=== PATIENT | male | born 1955 | race Caucasian/White ===

== ENCOUNTER 2024-06-05 16:35 | Inpatient (IN) | payer MEDICARE, OTHER, SELFPAY ==
[2024-06-05] VITALS (24 sets, daily range): BP systolic 111–176; BP diastolic 68–110; PULSE 75–105; RESP 16–26; TEMP 36.1–37; O2SAT 94–100; BMI 30.3; BMI 27.1
--- NOTE | 2024-06-05 16:36 | EKG12_ITS ---
Test Reason : STROKE ALERT Blood Pressure : / mmHG Vent. Rate : 092 BPM Atrial Rate : 092 BPM P-R Int : 140 ms QRS Dur : 064 ms QT Int : 344 ms P-R-T Axes : 065 032 069 degrees QTc Int : 425 ms Sinus rhythm with frequent Premature ventricular complexes Nonspecific ST abnormality Abnormal ECG Confirmed by Alfredito Lopez ([id number]), script editor JIMMIE GARCIA ([id number]) on 06/07/2024 10:21:07 AM Referred By: Confirmed By:Alfredito Lopez
--- NOTE | 2024-06-05 16:36 | CT_ITS ---
EXAMINATION : Head CT w/out contrast HISTORY : Neuro deficit, acute, stroke suspected COMPARISON : None. TECHNIQUE : Multiple contiguous axial images were obtained from the skull base to the vertex without intravenous contrast. A radiation dose optimization technique was used for this scan. FINDINGS : There is no evidence for acute intracranial hemorrhage, mass effect, or midline shift. There is no extra-axial fluid collection. There are periventricular white matter changes consistent with chronic microvascular ischemic disease. There is sulcal widening and ventricular enlargement consistent with cerebral atrophy. There is normal márquez-white differentiation, without CT evidence of acute ischemia or infarct. The skull base and calvarium are unremarkable. The orbits are unremarkable. The paranasal sinuses are clear. The mastoid air cells are well-aerated. The soft tissues are unremarkable. CT/STROKE Brain/Head without Cont IMPRESSION: No acute intracranial abnormality. Chronic involutional and ischemic changes of the brain. N.B. : The above Results were Read Back by Jonathon Yanez MD to Donald Resendiz MD, and understanding confirmed on 06/05/2024 16:48:18 (ET). Electronically Signed: Jonathon Yanez MD at 16:48 EDT ,
--- NOTE | 2024-06-05 16:36 | NURSING ---
NO OLD EKGS
--- NOTE | 2024-06-05 16:37 | CT_ITS ---
INDICATION: Neuro deficit, acute, stroke suspected EXAMINATION: CTA HEAD - CTA Head and Neck Stroke W/ Contrast (and W/O if performed) TECHNIQUE: [place]/head CT angiogram protocol was performed following IV contrast. 3D reconstructions were reviewed. A radiation dose optimization technique was used for this scan. IV Contrast dosage and agent: 100 mL [id number] COMPARISON: None. FINDINGS: Limitation: Limitation current examination due to motion artifact which obscures detail anatomy of the intracranial circulation. CTA [place]: PETROUS AND CAVERNOUS CAROTID ARTERIES: Moderate calcifications in the cavernous carotid vessels bilaterally without christian occlusion although limited due to motion artifact. No aneurysmal dilatation. SUPRACLINOID CAROTID ARTERIES: Normal appearance the supraclinoid carotid vessels bilaterally, the visualized ophthalmic arteries have normal appearance. ANTERIOR CEREBRAL AND A- COMM: Normal appearance the proximal and distal segments of the anterior cerebral circulation bilaterally. MIDDLE CEREBRAL ARTERIES: Normal appearance the M1 segments of the MCA bilaterally. Moderately diminished visualization of detail anatomy of M2-M4 segments bilaterally due to motion artifact. No christian occlusion however noted. INTRACRANIAL VERTEBRAL ARTERIES AND BASILAR ARTERY: Moderate calcifications involving the V4 segment LEFT vertebral artery. Basilar artery has normal caliber to level of the bifurcation. No filling defect or occlusion. POSTERIOR CEREBRAL ARTERIES: Normal appearance proximal distal segments of posterior cerebral circulation bilaterally. DURAL SINUSES: Normal, no filling defects noted CT HEAD: Noncontrast imaging of brain also submitted and correlated to exam of earlier same date. The cerebral parenchyma, ventricular system and gyral pattern have unchanged appearance. No mass, hemorrhage, or acute territorial infarct. No areas of abnormal contrast enhancement. CTA Neck: TECHNIQUE: CTA examination of the neck obtained with standard protocol including axial postcontrast imaging with additional planar and three-dimensional reconstructions. Aortic arch: [Normal appearance of the aortic arch and origin the great vessels.] Right carotid system: There is extensive soft and calcified plaque at the RIGHT carotid bulb with findings consistent with a severe (greater than 70%) stenosis. The remaining RIGHT CCA, cervical ICA, and ECA have normal appearance. Left carotid system: There is extensive calcification LEFT carotid bulb and bifurcation with findings consistent with a moderate (50-69%) stenosis at, and closer to 69%. Vertebral arteries: There is normal appearance of the vertebral arteries bilaterally without focal stenosis or occlusion. Airway and soft tissues of the neck: There is normal appearance of the musculofascial planes of suprahyoid and infrahyoid neck. Normal appearance of the visualized airway. Normal appearance the visualized thyroid without masses or nodules noted. Cervical spine: Diffuse cervical spondylosis, marginal osteophytes noted. No evidence of acutely acquired canal stenosis. No focal stenosis or occlusion involving the cervical spinal canal. CT/STROKE CTA Head AND Neck W/Con IMPRESSION: 1. Mild to moderate limitation of the intracranial circulation due to motion artifact. Moderate calcification involving the cavernous carotid vessels bilaterally no christian occlusion however motion does limit evaluation/quantification of stenoses of the cavernous carotid vessels. 2. Limited visualization of mid to distal branches of middle cerebral arteries bilaterally due to technical factors. No proximal MCA occlusion or filling defect. 3. No CTA evidence of LVO given the limitations the current exam. 4. Bilateral cervical carotid/carotid bulb stenosis. Severe stenosis on the RIGHT, greater than 70%. Stenosis on the LEFT estimated at moderate (50-69%), and closer to 69%. 5. No evidence of stenosis or occlusion of the cervical course of the vertebral arteries. N.B. : The above Results were Read Back by Jeronimo Howell MD to Donald Resendiz MD, and understanding confirmed on 06/05/2024 17:52:48 (ET). Electronically Signed: Jeronimo Howell MD at 17:54 EDT ,
--- NOTE | 2024-06-05 16:37 | ED.VIS.STROK ---
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 His blood pressure was low a week ago when he stopped taking his lisinopril as a result. He takes no antiplatelet or anticoagulant medications. Denies any recent head injury, hospitalization, surgery. Per EMS blood sugar 177 prior to arrival, weak left upper extremity, left facial droop, and slurred speech. [facility] Medical History (Updated 06/05/24 @ 17:[address] Donald Resendiz MD) Bone tumor Hypercholesteremia HTN (hypertension) Home Medications ?Medication ?Instructions ?Recorded ?Last Taken ?Type lisinopril 10 mg tablet 10 mg PO DAILY 06/05/24 Unknown History Allergy/AdvReac Type Severity Reaction Status Date / Time No Known Allergies Allergy Verified 06/05/24 16:44 Family History (Updated 06/05/24 @ 18:[address] Sha Brown MD) Other Diabetes Heart disease Surgical History (Updated 06/05/24 @ 18:[address] Sha Brown MD) History of bone graft Social History Smoking Status: Current every day smoker tobacco type: cigarettes ROS ROS ED Constitutional Constitutional ED: Denies chills or fever(s) Eyes Eyes: Denies change in vision or diplopia ENT ENT ED: Denies rhinorrhea or sore throat Cardiovascular Cardiovascular: Denies chest pain or palpitations Respiratory/Chest Respiratory/Chest: Denies cough or dyspnea Gastrointestinal Gastrointestinal: Denies abdominal pain, diarrhea, nausea or vomiting Genitourinary Genitourinary ED: Denies dysuria or hematuria Musculoskeletal Musculoskeletal: Denies back pain or neck pain Integumentary Denies abscess or rash Neurologic Neurologic: Reports abnormal speech, headache(s) and weakness; Denies paresthesias Psychiatric Psychiatric: Denies suicidal thoughts EXAM Physical Exam Const Vital Signs: 06/05/24 16:36 06/05/24 16:38 06/05/24 16:43 Temperature 97.6 F L Temperature Source Temporal Pulse Rate 104 H Respiratory Rate 16 Blood Pressure 144/80 H Blood Pressure Mean 101 Blood Pressure Source Blood Pressure Position Blood Pressure Location Pulse Ox 95 Oxygen Delivery Method Room Air Nasal Cannula Oxygen Flow Rate (L/min) 2 06/05/24 16:56 06/05/24 17:00 06/05/24 17:15 Temperature 97.4 F L Temperature Source Oral Pulse Rate 102 H 105 H Respiratory Rate 20 H 20 H Blood Pressure 176/101 H 176/101 H 152/76 H Blood Pressure Mean 126 101 Blood Pressure Source Monitor Monitor Blood Pressure Position Supine Semi-Fowlers Blood Pressure Location Left Arm Pulse Ox 100 97 Oxygen Delivery Method Room Air Room Air Oxygen Flow Rate (L/min) 06/05/24 17:24 06/05/24 17:30 06/05/24 17:45 Temperature 97.9 F 97.7 F L 97.4 F L Temperature Source Oral Oral Pulse Rate 96 94 94 Respiratory Rate 18 25 H 25 H Blood Pressure 152/76 H 157/89 H 157/88 H Blood Pressure Mean 101 111 111 Blood Pressure Source Monitor Monitor Blood Pressure Position Semi-Fowlers Semi-Fowlers Blood Pressure Location Left Arm Left Arm Pulse Ox 96 97 96 Oxygen Delivery Method Room Air Room Air Oxygen Flow Rate (L/min) Positive well nourished and well developed General Appearance ED: well developed and NAD HEENT Reports moist mucous membranes normocephalic and atraumatic Eyes PERRL and EOMs intact bilaterally Neck full ROM and supple Neck Narrative: No carotid bruits Resp normal respiratory effort and clear to auscultation bilaterally Cardio regular rate, regular rhythm and no murmurs GI non-tender and non-distended Auscultation: normoactive bowel sounds Palpation: soft Back/Spine no CVA tenderness General Back: other FROM Extremity normal to inspection General Extremety ED: Negative for edema, pulses abnormal or tenderness General Extremity: Negative for edema or pulses abnormal Neuro Sensorium / Orientation: awake and alert Skin no rashes or lesions noted and no wounds NIHSS NIHSS Initial: 1a Level of Consciousness: 1 1b LOC Questions (Score 2 if aphasic/stupor): 0 1c LOC Commands (Only score 1st attempt): 0 2 Best Gaze (If aphasic, use reflexive mvmts.): 0 3 Visual: 0 4 Facial Palsy: 2 5 Motor Arm Right (UN = amputation/fusion): 0 5 Motor Arm Left: 1 6 Motor Leg Right: 0 6 Motor Leg Left: 0 7 Limb ataxia (Only + if out of proportion): 0 8 Sensory (Aphasia/stupor=0 or 1, coma=2): 1 9 Best Language: 1 10 Dysarthria (mute, coma=2, intubated=UN): 2 11 Extinction and Inattention (only scored if +): 0 Total Score: 8 MDM MDM MDM Narrative Medical decision making narrative: I saw patient in the EMS bay for initial evaluation, he is a little somnolent, speech is very slurred, he has a dense left facial droop and his left arm is weak and with decreased sensation. See the attached NIHSS. He was taken by EMS immediately to CT, I reviewed the images in real-time I see no acute hemorrhage and radiology contacted me confirming same. I agree with the report. I reevaluated the patient performed a thorough NIHSS at that time, he still has the symptoms and confirms that they just started recently. Family arrived, and confirmed the same. He had a minor fall yesterday bumping his elbow and shoulder with no head injury, no recent hospitalization or surgery, he takes no antiplatelet or anticoagulant medications since he stopped his lisinopril 1 week ago he is taking no medications, and he was fine today before all of this. 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 TNK indicated, which I ordered and gave. [facility] was delayed in being in because they had 3 simultaneous strokes including those from other spokes/hospitals, when they came in to evaluate the patient after we gave TNK, they confirmed that it was indicated. We discussed risks and alternatives and my recommendation for giving it, patient and friends and family all in agreement. Discussed with hospitalist for admission after we confirmed with radiology that although the CT angiography is a poor study he sees no LVO in M1 or M2 segment although there is significant stenosis in the bulb of the right carotid which may be related to either low flow or throwing a small thrombus and causing this syndrome. History & Record Review Additional record(s) reviewed:: No prior records Lab Data Attestation: I reviewed the patient's lab results. Labs: Laboratory Results - last 24 hr 06/05/24 06/05/24 16:37 17:30 WBC 9.1 RBC 4.92 Hgb 17.4 H Hct 48.8 MCV 99.2 H MCH 35.4 H MCHC 35.7 RDW Std Deviation 45.9 H RDW Coeff of [place] 12.6 Plt Count 251 MPV 9.5 Immature Gran % (Auto) 0.400 Neut % (Auto) 74.3 H Lymph % (Auto) 17.4 L [place] % (Auto) 6.2 Eos % (Auto) 0.9 Baso % (Auto) 0.8 Absolute Neuts (auto) 6.8 Absolute Lymphs (auto) 1.58 Nucleated RBC % 0 PT 13.1 INR 1.0 APTT 28.6 Sodium 137 Potassium 3.5 Chloride 103 Carbon Dioxide 25.0 Anion Gap 9 BUN 15 Creatinine 1.02 Estim Creat Clear Calc 82.83 Est GFR (MDRD) Af Amer 94 Est GFR (MDRD) Non-Af 78 BUN/Creatinine Ratio 14.7 Glucose 206 H Calcium 9.5 Troponin I High Sens 4 Triglycerides 212 H Cholesterol 256 H LDL Cholesterol 166 H VLDL Cholesterol 42 H HDL Cholesterol 48 Radiography Diagnostic Testing: Clinical Impression(s) from Imaging Studies Brain CT 06/05/24 16:36 IMPRESSION: No acute intracranial abnormality. Chronic involutional and ischemic changes of the brain. N.B. : The above Results were Read Back by Jonathon Yanez MD to Donald Resendiz MD, and understanding confirmed on 06/05/2024 16:48:18 (ET). Electronically Signed: Jonathon Yanez MD at 16:48 EDT , Head/Neck CTA 06/05/24 16:37 IMPRESSION: 1. Mild to moderate limitation of the intracranial circulation due to motion artifact. Moderate calcification involving the cavernous carotid vessels bilaterally no christian occlusion however motion does limit evaluation/quantification of stenoses of the cavernous carotid vessels. 2. Limited visualization of mid to distal branches of middle cerebral arteries bilaterally due to technical factors. No proximal MCA occlusion or filling defect. 3. No CTA evidence of LVO given the limitations the current exam. 4. Bilateral cervical carotid/carotid bulb stenosis. Severe stenosis on the RIGHT, greater than 70%. Stenosis on the LEFT estimated at moderate (50-69%), and closer to 69%. 5. No evidence of stenosis or occlusion of the cervical course of the vertebral arteries. N.B. : The above Results were Read Back by Jeronimo Howell MD to Donald Resendiz MD, and understanding confirmed on 06/05/2024 17:52:48 (ET). Electronically Signed: Jeronimo Howell MD at 17:54 EDT , ADDENDUM: 06/05/24 1801 IMPRESSION: 1. Mild to moderate limitation of the intracranial circulation due to motion artifact. Moderate calcification involving the cavernous carotid vessels bilaterally no christian occlusion however motion does limit evaluation/quantification of stenoses of the cavernous carotid vessels. 2. Limited visualization of mid to distal branches of middle cerebral arteries bilaterally due to technical factors. No proximal MCA occlusion or filling defect. 3. No CTA evidence of LVO given the limitations the current exam. 4. Bilateral cervical carotid/carotid bulb stenosis. Severe stenosis on the RIGHT, greater than 70%. Stenosis on the LEFT estimated at moderate (50-69%), and closer to 69%. 5. No evidence of stenosis or occlusion of the cervical course of the vertebral arteries. N.B. : The above Results were Read Back by Jeronimo Howell MD to Donald Resendiz MD, and understanding confirmed on 06/05/2024 17:52:48 (ET). Electronically Signed: Jeronimo Howell MD at 17:54 EDT , Chest X-Ray 06/05/24 17:28 IMPRESSION: No radiographic evidence of acute cardiopulmonary disease. Electronically Signed: Mary Pappas MD at 18:09 EDT Reading Location ID and State: [id number] / Tel , Service support , 1 view chest x-ray my interpretation shows some atelectasis in the bases but no acute abnormalities. I reviewed the CTA imaging and results which I agree with. Rhythm Strip Rhythm Strip: Sinus Rhythm Rate: 92 Ectopy: PVC(s) EKG Initial EKG: Attestation: I personally reviewed and interpreted this EKG as follows: Interpretation: Sinus Rhythm and No Acute Injury Pattern Comments: pvcs Management Discussion w/another healthcare provider: Hospitalist, [employer] ([facility] stroke neuro), Radiologist and Pharmacist Stroke Documentation Questions Stroke Team Activated: Yes Reviewed Inclusion/Exclusion criteria: Yes Was Patient considered for Endovascular Intervention?: No-CTA negative, determined not to be an endovascular candidate IV Thrombolytic Administered: Yes Critical Care Time Critical Care Time: Yes Critical care time (excluding procedures): 30-74 minutes (36 min), Including time spent:, Discussing w/Patient &/or Family/Fare Register Repairer, Discussing w/Consultants, Arranging Admission or Transfer and Performing Direct Patient Care at Bedside Discharge Plan Dx/Rx/DC Orders Clinical Impression: Acute ischemic right MCA stroke Disposition Disposition: [facility] Discharge Date/Time: 06/05/24 19:01
--- NOTE | 2024-06-05 16:38 | NURSING ---
1610 STROKE CALLED PRIOR TO ARRIVAL, ETA 20 MIN
[2024-06-05 16:46] LABS: Absolute Lymphocyte Count 1.58 X10^3/uL (0.83-4.51); Absolute Neutrophil Count 6.8 X10^3/uL (2.0-7.7); Basophil# 0.07 X10^3/uL; Basophil% 0.8 % (0-1); Eosinophil# 0.08 X10^3/uL; Eosinophils% 0.9 % (0-5); Hematocrit 48.8 % (40-54); Hemoglobin 17.4 g/dL (13.0-16.5); Lymphocyte # 1.58 X10^3/ul (0.83-4.51); Lymphocyte % 17.4 % (19-41); Mean Corp Hgb Conc 35.7 g/dL (32-36); Mean Corpuscular Hgb 35.4 pg (27.0-32.0); Mean Corpuscular Volume 99.2 fL (80-94); Mean Platelet Vol. 9.5 fl (6.2-12.0); Monocyte# 0.56 X10^3/uL; Monocyte% 6.2 % (0-10); NRBC Flagged by Analyzer 0 % (0-5); Neutrophil # 6.77 X10^3/uL (2.7-7.7); Neutrophil % 74.3 % (47-70); Platelet Count 251 K/mm3 (150-450); RBC Distribution Width CV 12.6 % (11.6-14.6); RBC Distribution Width SD 45.9 fl (35.1-43.9); Red Blood Count 4.92 M/mm3 (4.6-6.2); White Blood Count 9.1 K/mm3 (4.4-11.0)
[2024-06-05 16:54] LABS: Prothrombin Time (Protime)PT. 13.1 SECONDS (11.7-14.9)
--- NOTE | 2024-06-05 16:54 | ED.RN ---
Dr Resendiz stated to give the TNK prior to placing the perla.
[2024-06-05 16:55] LABS: Partial Thromboplast Time 28.6 Seconds (24.1-36.2)
[2024-06-05] MEDS: 0.9% Saline Lock 10 ML Syringe IV ×3 (16:55→21:49)
[2024-06-05] MEDS: TENECTEPLASE 3456 MG IV (16:56)
[2024-06-05 17:04] LABS: Anion Gap 9 (5-15); BUN 15 mg/dL (7-18); BUN/Creat Ratio 14.7 RATIO (10-20); Calcium,Total 9.5 mg/dL (8.5-10.1); Chloride 103 mmol/L (98-107); Creatinine, Serum 1.02 mg/dL (0.70-1.30); EST Glomerular Filtration Rate 78 mL/min (>60); Est Glom Filt Rate - Afr Amer 94 mL/min (>60); Estimated Creatinine Clearance 82.83 ml/min; Glucose 206 mg/dL (74-106); Potassium 3.5 mmol/L (3.5-5.1); Sodium Level 137 mmol/L (136-145); Troponin-I HS 4 pg/mL (3.0-78.0)
[2024-06-05] MEDS: 0.9% Normal Saline (1000mL) 1,000 ML 100 ML IV (17:27)
--- NOTE | 2024-06-05 17:28 | RAD_ITS ---
INDICATION: Neuro deficit, acute, stroke suspected EXAMINATION/TECHNIQUE: X-RAY - XR Chest 1 View COMPARISON: FINDINGS: LINES/DEVICES: None. LUNGS: No consolidation, edema or effusion. No pneumothorax. MEDIASTINUM AND CARDIOVASCULAR STRUCTURES: Cardiac silhouette not enlarged. Central airways and mediastinal contour are unremarkable. BONES AND SOFT TISSUES: Unremarkable. RAD/Chest 1 View IMPRESSION: No radiographic evidence of acute cardiopulmonary disease. Electronically Signed: Mary Pappas MD at 18:09 EDT Reading Location ID and State: [id number] / Tel , Service support ,
--- NOTE | 2024-06-05 17:30 | ED.RN ---
Mild bleeding noted around the urethra. This RN wiped it away and it did not continue to bleed.
--- NOTE | 2024-06-05 18:04 | NURSING ---
ICU ISCHEMIC STROKE HEMANT
--- NOTE | 2024-06-05 18:21 | HP.PCM.HOS_ITS ---
HPI - General General Date of Admission: 06/05/24 HPI Narrative COCO YIN, is a 68 M who presents to the hospital as a stroke. He was in the garage working on a project with his son when he started losing strength in his left hand and arm and did not feel well. They took him into the house and get blood pressure and call the ambulance and during that process they noticed that his speech was slurred and that he was developing a left facial droop. On arrival to the hospital he was evaluated as a stroke team and given TNK. He had NIH of 5 secondary to the dysarthria as well as left upper extremity weakness and some sensory loss. He is a smoker and states that he has a history of high blood pressure and cholesterol but he stopped taking his medications because he felt fine. [facility] Medical History (Updated 06/05/24 @ 17:[address] Donald Resendiz MD) Bone tumor Hypercholesteremia HTN (hypertension) Home Medications ?Medication ?Instructions ?Recorded ?Last Taken ?Type lisinopril 10 mg tablet 10 mg PO DAILY 06/05/24 Unknown History Allergy/AdvReac Type Severity Reaction Status Date / Time No Known Allergies Allergy Verified 06/05/24 16:44 Family History (Updated 06/05/24 @ 18:[address] Sha Brown MD) Other Diabetes Heart disease Surgical History (Updated 06/05/24 @ 18:[address] Sha Brown MD) History of bone graft Social History Smoking Status: Current every day smoker tobacco type: cigarettes ROS Constitutional Constitutional: Denies chills, fatigue, fever(s) or malaise Eyes Eyes: Denies blurry vision ENT HEENT: Denies headache(s) or nasal discharge Cardiovascular Cardiovascular: Denies chest pain, dyspnea on exertion or syncope Respiratory/Chest Respiratory/Chest: Denies cough, shortness of breath at rest or shortness of breath with exertion Gastrointestinal Gastrointestinal: Denies constipation, diarrhea, nausea or vomiting Genitourinary Genitourinary: Denies dysuria Neurologic Neurologic: Reports abnormal speech, focal weakness and paresthesias; Denies numbness or tremor(s) Psychiatric Psychiatric: Denies anxiety or depression Vital Signs Vital Signs Vital Signs: 06/05/24 16:36 06/05/24 16:38 06/05/24 16:43 Temperature 97.6 F L Temperature Source Temporal Pulse Rate 104 H Respiratory Rate 16 Blood Pressure 144/80 H Blood Pressure Mean 101 Blood Pressure Source Blood Pressure Position Blood Pressure Location Pulse Ox 95 Oxygen Delivery Method Room Air Nasal Cannula Oxygen Flow Rate (L/min) 2 06/05/24 16:56 06/05/24 17:00 06/05/24 17:15 Temperature 97.4 F L Temperature Source Oral Pulse Rate 102 H 105 H Respiratory Rate 20 H 20 H Blood Pressure 176/101 H 176/101 H 152/76 H Blood Pressure Mean 126 101 Blood Pressure Source Monitor Monitor Blood Pressure Position Supine Semi-Fowlers Blood Pressure Location Left Arm Pulse Ox 100 97 Oxygen Delivery Method Room Air Room Air Oxygen Flow Rate (L/min) 06/05/24 17:24 06/05/24 17:30 06/05/24 17:45 Temperature 97.9 F 97.7 F L 97.4 F L Temperature Source Oral Oral Pulse Rate 96 94 94 Respiratory Rate 18 25 H 25 H Blood Pressure 152/76 H 157/89 H 157/88 H Blood Pressure Mean 101 111 111 Blood Pressure Source Monitor Monitor Blood Pressure Position Semi-Fowlers Semi-Fowlers Blood Pressure Location Left Arm Left Arm Pulse Ox 96 97 96 Oxygen Delivery Method Room Air Room Air Oxygen Flow Rate (L/min) 06/05/24 18:00 06/05/24 18:15 Temperature 97.7 F L 97.7 F L Temperature Source Oral Oral Pulse Rate 91 97 Respiratory Rate 25 H 25 H Blood Pressure 157/98 H 166/91 H Blood Pressure Mean 117 116 Blood Pressure Source Monitor Monitor Blood Pressure Position Semi-Fowlers Semi-Fowlers Blood Pressure Location Left Arm Left Arm Pulse Ox 97 97 Oxygen Delivery Method Room Air Room Air Oxygen Flow Rate (L/min) Weight Weight: 211 lb 10.3 oz Body Mass Index (BMI) 30.3 Physical Exam Narrative General: Alert, Oriented x3, Cooperative, No apparent distress HEENT: Atraumatic, PERRLA, EOMI, Normocephalic Oral: Moist Mucosa Neck: Supple, No JVD Lungs: Diminished, Normal air movement, No rhonchi, No wheeze, No rales Cardiovascular: Regular rate, Regular Rhythm, Normal S1, Normal S2, No murmurs Abdomen: Soft, Non Tender, Non-Distended, No Hepato-splenomegaly Extremities: No edema, Capillary Refill Less than 3 Seconds Skin: No rashes, No breakdown Musculoskeletal: No Tenderness to Palpation of Joints or Extremities Neurological: Left facial droop with mild dysarthria, right upper extremity is 5 out of 5, left upper extremity is 4 out of 5 Psych/Mental Status: Normal Affect, Appropriate Results Lab / Micro Data 06/05/24 16:37 06/05/24 16:37 Labs: Laboratory Results - last 24 hr 06/05/24 16:37: WBC 9.1, RBC 4.92, Hgb 17.4 H, Hct 48.8, MCV 99.2 H, MCH 35.4 H, MCHC 35.7, RDW Std Deviation 45.9 H, RDW Coeff of Kassidy 12.6, Plt Count 251, MPV 9.5, Immature Gran % (Auto) 0.400, Neut % (Auto) 74.3 H, Lymph % (Auto) 17.4 L, [place] % (Auto) 6.2, Eos % (Auto) 0.9, Baso % (Auto) 0.8, Absolute Neuts (auto) 6.8, Absolute Lymphs (auto) 1.58, Nucleated RBC % 0, PT 13.1, INR 1.0, APTT 28.6, Sodium 137, Potassium 3.5, Chloride 103, Carbon Dioxide 25.0, Anion Gap 9, BUN 15, Creatinine 1.02, Estim Creat Clear Calc 82.83, Est GFR (MDRD) Af Amer 94, Est GFR (MDRD) Non-Af 78, BUN/Creatinine Ratio 14.7, Glucose 206 H, Calcium 9.5, Troponin I High Sens 4 Rhythm Strip Rhythm Strip: Sinus Rhythm Rate: 92 Ectopy: PVC(s) Imaging Radiology Impression Head/Neck CTA 06/05/24 16:37 IMPRESSION: 1. Mild to moderate limitation of the intracranial circulation due to motion artifact. Moderate calcification involving the cavernous carotid vessels bilaterally no christian occlusion however motion does limit evaluation/quantification of stenoses of the cavernous carotid vessels. 2. Limited visualization of mid to distal branches of middle cerebral arteries bilaterally due to technical factors. No proximal MCA occlusion or filling defect. 3. No CTA evidence of LVO given the limitations the current exam. 4. Bilateral cervical carotid/carotid bulb stenosis. Severe stenosis on the RIGHT, greater than 70%. Stenosis on the LEFT estimated at moderate (50-69%), and closer to 69%. 5. No evidence of stenosis or occlusion of the cervical course of the vertebral arteries. N.B. : The above Results were Read Back by Jeronimo Howell MD to Donald Resendiz MD, and understanding confirmed on 06/05/2024 17:52:48 (ET). Electronically Signed: Jeronimo Howell MD at 17:54 EDT , ADDENDUM: 06/05/24 1801 IMPRESSION: 1. Mild to moderate limitation of the intracranial circulation due to motion artifact. Moderate calcification involving the cavernous carotid vessels bilaterally no christian occlusion however motion does limit evaluation/quantification of stenoses of the cavernous carotid vessels. 2. Limited visualization of mid to distal branches of middle cerebral arteries bilaterally due to technical factors. No proximal MCA occlusion or filling defect. 3. No CTA evidence of LVO given the limitations the current exam. 4. Bilateral cervical carotid/carotid bulb stenosis. Severe stenosis on the RIGHT, greater than 70%. Stenosis on the LEFT estimated at moderate (50-69%), and closer to 69%. 5. No evidence of stenosis or occlusion of the cervical course of the vertebral arteries. N.B. : The above Results were Read Back by Jeronimo Howell MD to Donald Resendiz MD, and understanding confirmed on 06/05/2024 17:52:48 (ET). Electronically Signed: Jeronimo Howell MD at 17:54 EDT , Chest X-Ray 06/05/24 17:28 IMPRESSION: No radiographic evidence of acute cardiopulmonary disease. Electronically Signed: Mary Pappas MD at 18:09 EDT Reading Location ID and State: [id number] / Tel , Service support , Assessment & Plan Assessment/Plan (1) Acute ischemic right MCA stroke: PLAN: Plan 1. Right sided MCA stroke/essential HTN/HLD ? He does have a right carotid artery stenosis to 70% we will confirm with a carotid duplex on Friday ?Continue with the post TNK order set ? Will transfer to the ICU with repeat imaging in 24 hours ? Continue with nifedipine to control blood pressure for the next 24 hours ? Continue with telemetry monitoring ? Will likely need to be restarted on home blood pressure and cholesterol medications, I did have extensive discussions with him that he is does not discontinue any of these meds going forward and that he also will need to quit smoking DVT: SCDs 75 minutes was spent on direct patient care, including documentation as well as chart review and collaboration with colleagues Charges/Coding Visit Charges Inpatient E&M: 05956 Init Hosp L3
[2024-06-05 18:30] LABS: Cholesterol 256 mg/dL (200); High Density Lipoprotein 48 mg/dL; Triglycerides 212 mg/dL; Very Low Density Lipoprotein 42 mg/dL (5-40)
--- NOTE | 2024-06-05 19:22 | CDU_ITS ---
Reason For Study: CVA Rt. Velocities/BP Lt. Velocities/BP Prox CCA 67.4/14.5 cm/sec. Prox CCA 75.3/16 cm/sec. Mid CCA 62.6/15.4 cm/sec. Mid CCA 70/17.7 cm/sec. Dist CCA 62.6/15.4 cm/sec. Dist CCA 71.8/17.7 cm/sec. Prox ICA 126.6/22.5 cm/sec. Prox ICA 75.1/16.8 cm/sec. Mid ICA 110.1/24.3 cm/sec. Mid ICA 106.5/29.8 cm/sec. Dist ICA 70.7/25.6 cm/sec. Dist ICA 86.4/22.5 cm/sec. Rt. ICA/CCA = 2.02. Lt. ICA/CCA = 1.52. Prox ECA 218.5/18.9 cm/sec. Prox ECA 91.6/15.7 cm/sec. Rt. Vert. 30.8/10.7 cm/sec. Lt. Vert. 43.7/8.8 cm/sec. Right Extracranial There is homogeneous, smooth atherosclerotic plaque noted in the right common carotid artery. There is heterogeneous, irregular atherosclerotic plaque noted in the right internal carotid artery. There is heterogeneous, irregular atherosclerotic plaque noted in the right external carotid artery. Antegrade flow is noted in the right vertebral artery. Left Extracranial There is homogeneous, smooth atherosclerotic plaque noted in the left common carotid artery. There is heterogeneous, irregular atherosclerotic plaque noted in the left internal carotid artery. There is heterogeneous, irregular atherosclerotic plaque noted in the left external carotid artery. Antegrade flow is noted in the left vertebral artery. Procedure Carotid Duplex 80957. This is a Carotid Duplex examination using B-mode, color flow and specral Doppler. Exam performed portable in ICU/CCU. VL/Carotid Duplex Ultrasound Interpretation Summary Moderate (50-69%) stenosis right extracranial internal carotid. Mild (<50%) stenosis left extracranial internal carotid. Patent and antegrade vertebrals bilaterally. Ordering Physician: Sha Brown Performed By: Marti Phan RVT
[2024-06-05] MEDS: Labetalol (Prefilled) 20 MG/4 ML IV (19:37)
--- NOTE | 2024-06-05 19:40 | NURSING ---
This RN contacting hospitalist regarding patient's blood pressure at 158/105 at 192 for a x1 labetalol order. Cardene infusion has been ordered but labetalol has not been attempted yet. Stephanie responded and gave an order for labetalol 20 mg IV x1 which was verified by pharmacy and given at 193. Patient's next blood pressure showed improvement at 194 and came down to 148/99. Will continue to hold off on cardene.
[2024-06-05] MEDS: Ondansetron 4 MG/2 ML Vial IV (21:48)
[2024-06-05] MEDS: Pantoprazole Sodium 40 MG in 0.9% Normal Saline (100mL MB+) 100 ML 330 MG IV (21:59)
[2024-06-05] MEDS: 0.9% Normal Saline (250mL Bag) 250 ML 15 ML IV (22:40)
[2024-06-06] VITALS (27 sets, daily range): BP systolic 107–165; BP diastolic 66–99; PULSE 65–95; RESP 17–29; TEMP 36.1–36.9; O2SAT 93–98; BMI 27.1
[2024-06-06 04:32] LABS: Absolute Lymphocyte Count 1.48 X10^3/uL (0.83-4.51); Absolute Neutrophil Count 9.8 X10^3/uL (2.0-7.7); Basophil# 0.05 X10^3/uL; Basophil% 0.4 % (0-1); Eosinophil# 0.01 X10^3/uL; Eosinophils% 0.1 % (0-5); Hematocrit 45.1 % (40-54); Hemoglobin 15.6 g/dL (13.0-16.5); Lymphocyte # 1.48 X10^3/ul (0.83-4.51); Lymphocyte % 12.3 % (19-41); Mean Corp Hgb Conc 34.6 g/dL (32-36); Mean Corpuscular Hgb 34.6 pg (27.0-32.0); Mean Platelet Vol. 9.6 fl (6.2-12.0); Monocyte# 0.69 X10^3/uL; Monocyte% 5.7 % (0-10); NRBC Flagged by Analyzer 0 % (0-5); Neutrophil # 9.76 X10^3/uL (2.7-7.7); Neutrophil % 80.8 % (47-70); Platelet Count 222 K/mm3 (150-450); RBC Distribution Width CV 12.8 % (11.6-14.6); RBC Distribution Width SD 46.9 fl (35.1-43.9); Red Blood Count 4.51 M/mm3 (4.6-6.2); White Blood Count 12.1 K/mm3 (4.4-11.0)
[2024-06-06 04:49] LABS: Anion Gap 6 (5-15); BUN 13 mg/dL (7-18); BUN/Creat Ratio 14.3 RATIO (10-20); Calcium,Total 8.9 mg/dL (8.5-10.1); Chloride 109 mmol/L (98-107); Creatinine, Serum 0.91 mg/dL (0.70-1.30); EST Glomerular Filtration Rate 89 mL/min (>60); Est Glom Filt Rate - Afr Amer 107 mL/min (>60); Estimated Creatinine Clearance 98.03 ml/min; Glucose 131 mg/dL (74-106); Potassium 4.1 mmol/L (3.5-5.1); Sodium Level 139 mmol/L (136-145)
--- NOTE | 2024-06-06 07:10 | PN.HOSP_ITS ---
Reason for Visit Reason for Visit: Diagnoses Cerebral infarction due to unspecified occlusion or stenosis of right middle cerebral artery (06/05/24) Objective Data Objective Data Vital Signs: Vital Signs Temp Pulse Resp BP Pulse Ox O2 Del Method O2 Flow Rate 97 F L 73 19 H 114/71 93 Room Air 2 06/06/24 03:45 06/06/24 06:45 06/06/24 06:45 06/06/24 06:45 06/06/24 06:45 06/06/24 06:45 06/05/24 16:43 Oxygen Flow Rate (L/min) 2 Oxygen Delivery Method Room Air Weight: 223 lb 6 oz Body Mass Index (BMI) 27.1 Intake & Output: Intake and Output for Last 24 Hours 06/04/24 06/05/24 06/06/24 23:59 23:59 23:59 Intake Total 290 / 290 65 / 65 Output Total 1150 / 1150 550 / 550 Balance -860 / -860 -485 / -485 Lab / Micro Data 06/06/24 03:50 06/06/24 03:50 Labs: Laboratory Results - last 24 hr 06/05/24 16:37: WBC 9.1, RBC 4.92, Hgb 17.4 H, Hct 48.8, MCV 99.2 H, MCH 35.4 H, MCHC 35.7, RDW Std Deviation 45.9 H, RDW Coeff of Kassidy 12.6, Plt Count 251, MPV 9.5, Immature Gran % (Auto) 0.400, Neut % (Auto) 74.3 H, Lymph % (Auto) 17.4 L, [place] % (Auto) 6.2, Eos % (Auto) 0.9, Baso % (Auto) 0.8, Absolute Neuts (auto) 6.8, Absolute Lymphs (auto) 1.58, Nucleated RBC % 0, PT 13.1, INR 1.0, APTT 28.6, Sodium 137, Potassium 3.5, Chloride 103, Carbon Dioxide 25.0, Anion Gap 9, BUN 15, Creatinine 1.02, Estim Creat Clear Calc 82.83, Est GFR (MDRD) Af Amer 94, Est GFR (MDRD) Non-Af 78, BUN/Creatinine Ratio 14.7, Glucose 206 H, Calcium 9.5, Troponin I High Sens 4 06/05/24 17:30: Triglycerides 212 H, Cholesterol 256 H, LDL Cholesterol 166 H, V LDL Cholesterol 42 H, HDL Cholesterol 48 06/06/24 03:50: WBC 12.1 H, RBC 4.51 L, Hgb 15.6, Hct 45.1, MCV 100.0 H, MCH 34.6 H, MCHC 34.6, RDW Std Deviation 46.9 H, RDW Coeff of Kassidy 12.8, Plt Count 222, MPV 9.6, Immature Gran % (Auto) 0.700, Neut % (Auto) 80.8 H, Lymph % (Auto) 12.3 L, [place] % (Auto) 5.7, Eos % (Auto) 0.1, Baso % (Auto) 0.4, Absolute Neuts (auto) 9.8 H, Absolute Lymphs (auto) 1.48, Nucleated RBC % 0, Sodium 139, Potassium 4.1, Chloride 109 H, Carbon Dioxide 24.0, Anion Gap 6, BUN 13, Creatinine 0.91, Estim Creat Clear Calc 98.03, Est GFR (MDRD) Af Amer 107, Est GFR (MDRD) Non-Af 89, BUN/Creatinine Ratio 14.3, Glucose 131 H, Calcium 8.9 Radiography Diagnostic Testing: Radiology Impression Brain CT 06/05/24 16:36 IMPRESSION: No acute intracranial abnormality. Chronic involutional and ischemic changes of the brain. N.B. : The above Results were Read Back by Jonathon Yanez MD to Donald Resendiz MD, and understanding confirmed on 06/05/2024 16:48:18 (ET). Electronically Signed: Jonathon Yanez MD at 16:48 EDT , Head/Neck CTA 06/05/24 16:37 IMPRESSION: 1. Mild to moderate limitation of the intracranial circulation due to motion artifact. Moderate calcification involving the cavernous carotid vessels bilaterally no christian occlusion however motion does limit evaluation/quantification of stenoses of the cavernous carotid vessels. 2. Limited visualization of mid to distal branches of middle cerebral arteries bilaterally due to technical factors. No proximal MCA occlusion or filling defect. 3. No CTA evidence of LVO given the limitations the current exam. 4. Bilateral cervical carotid/carotid bulb stenosis. Severe stenosis on the RIGHT, greater than 70%. Stenosis on the LEFT estimated at moderate (50-69%), and closer to 69%. 5. No evidence of stenosis or occlusion of the cervical course of the vertebral arteries. N.B. : The above Results were Read Back by Jeronimo Howell MD to Donald Resendiz MD, and understanding confirmed on 06/05/2024 17:52:48 (ET). Electronically Signed: Jeronimo Howell MD at 17:54 EDT , ADDENDUM: 06/05/24 1801 IMPRESSION: 1. Mild to moderate limitation of the intracranial circulation due to motion artifact. Moderate calcification involving the cavernous carotid vessels bilaterally no christian occlusion however motion does limit evaluation/quantification of stenoses of the cavernous carotid vessels. 2. Limited visualization of mid to distal branches of middle cerebral arteries bilaterally due to technical factors. No proximal MCA occlusion or filling defect. 3. No CTA evidence of LVO given the limitations the current exam. 4. Bilateral cervical carotid/carotid bulb stenosis. Severe stenosis on the RIGHT, greater than 70%. Stenosis on the LEFT estimated at moderate (50-69%), and closer to 69%. 5. No evidence of stenosis or occlusion of the cervical course of the vertebral arteries. N.B. : The above Results were Read Back by Jeronimo Howell MD to Donald Resendiz MD, and understanding confirmed on 06/05/2024 17:52:48 (ET). Electronically Signed: Jeronimo Howell MD at 17:54 EDT , Chest X-Ray 06/05/24 17:28 IMPRESSION: No radiographic evidence of acute cardiopulmonary disease. Electronically Signed: Mary Pappas MD at 18:09 EDT Reading Location ID and State: [id number] / Tel , Service support , Rhythm Strip Rhythm Strip: Sinus Rhythm Rate: 92 Ectopy: PVC(s) Physical Exam Narrative Seen and examined. Patient has history of smoking a pack per day since teenage, 18. Has mild chronic cough/smoker's cough. Improvement in the left arm weakness and speech. Failed swallow screen x 2 Physical exam General: Alert, Oriented x3, Cooperative HEENT: Atraumatic, PERRLA, EOMI, Normocephalic Oral: No Gingival or Mucosal Lesions/ Ulcerations Neck: Supple, No JVD, Negative Carotid Bruits Chest wall/Lungs: Air entry diminished in bilateral lung bases. Bilateral expiratory rhonchi. Bronchial breath in lower lungs. Cardiovascular: sinus rhythm with multiple PVCs. Normal S1, Normal S2, No M/G/R Abdomen: Bowel Sounds Present, Soft, Non Tender, Non-Distended : No dysuria. No renal angle tenderness. No suprapubic tenderness. Extremities: No edema, Capillary Refill Less than 3 Seconds Skin: No rashes, No breakdown Musculoskeletal: No Tenderness to Palpation of Joints or Extremities. ROM full and intact. Neurological: Facial paralysis/asymmetry. NIH stroke scale 1. No aphasia or dysarthria noticed. DTR 2+/4. No acute focal neurological deficit. Per intermediate charting, NIH stroke scale 2, minor facial paralysis and mild/moderate dysarthria. Psych/Mental Status: Normal Affect, Appropriate. Assessment & Plan Assessment/Plan (1) Acute ischemic right MCA stroke: PLAN: Plan 68-year-old gentleman was admitted after prehospital stroke alert by EMS for 15 to 20 minutes of sudden onset of left-sided weakness, trouble speaking and frontal headache. His BP was low a week ago and then he stopped taking lisinopril. EMS vitals shows BP 147/95, 159/93. 1. Right sided MCA stroke: Patient is being admitted in ICU after TNK. Patient on post TNK order set ? PT, OT, speech therapy/swallow evaluation and management, nursing NIH stroke scale, BP and glucose monitoring and control as per stroke protocol. TSH 1.77. A1c pending. MRI brain after 24 hours of TNK and 2D echo with bubble contrast study ordered ? Continue with nifedipine to control blood pressure for the next 24 hours ? Continue with telemetry monitoring ? Monitor BP as per stroke guidelines, post tenecteplase. 2. Hypertension: Diastolic pressure was high. Diastolic pressure was high. 176/101. 171/110. 1 dose of 20 mg IV labetalol on 06/05 at 19:37 hours as per protocol. BP in ED 148/82-152/76. Heart rate in low 100s. 3. Dyslipidemia: Fasting lipid profile shows triglyceride 212, total cholesterol 256, LDL 166 and HDL 48. 4. Bilateral carotid stenosis/PAD: Right ICA/carotid bulb stenosis 70%. The stenosis on the left estimated closer to 69%. No evidence of LVO. Moderate calcification involving cavernous carotid vessels bilaterally. Carotid duplex ordered for further evaluation. 5. Chronic smoking with suspected undiagnosed COPD: Patient was smoking until he got admitted since age of 18 a pack per day. He has morning chronic cough after waking up and brings up phlegm, clinical feature of COPD/emphysema. Will need outpatient pulmonary follow-up for PFT. DVT: SCDs Clinical Impression(s) from Imaging Studies Brain CT 06/05/24 16:36 IMPRESSION: No acute intracranial abnormality. Chronic involutional and ischemic changes of the brain. Head/Neck CTA 06/05/24 16:37 IMPRESSION: 1. Mild to moderate limitation of the intracranial circulation due to motion artifact. Moderate calcification involving the cavernous carotid vessels bilaterally no christian occlusion however motion does limit evaluation/quantification of stenoses of the cavernous carotid vessels. 2. Limited visualization of mid to distal branches of middle cerebral arteries bilaterally due to technical factors. No proximal MCA occlusion or filling defect. 3. No CTA evidence of LVO given the limitations the current exam. 4. Bilateral cervical carotid/carotid bulb stenosis. Severe stenosis on the RIGHT, greater than 70%. Stenosis on the LEFT estimated at moderate (50-69%), and closer to 69%. 5. No evidence of stenosis or occlusion of the cervical course of the vertebral arteries. Chest X-Ray 06/05/24 17:28 IMPRESSION: No radiographic evidence of acute cardiopulmonary disease. Electronically Signed: Mary Pappas MD at 18:09 EDT Reading Location ID and State: [id number] / Tel , Service support , Charges/Coding Addendum Addendum: Total time of the visit including total time spent in counseling or coordination of care, (more than 50% of the total time, spent in obtaining medical information from nurses and other ancillary care providers,explaining to the patient about labs, imaging, diagnosis and management of active complex medical conditions), discussion with natural resources faculty member/pulmonology and nursing staff, review of labs and imaging is 40 minutes. Visit Charges Inpatient E&M: 38810 Subs Hosp L3
--- NOTE | 2024-06-06 07:19 | ECHOCS_ITS ---
Reason For Study: Ischemic Stroke s/p TNK Procedure This was a 2D Doppler, Color Flow transthoracic echocardiogram. Contrast injection was performed. Exam performed portable in ICU/CCU. Left Ventricle Normal size and thickness. The left ventricular ejection fraction is 65 %. Normal diastology for age. Right Ventricle Normal right ventricle. Atria The left and right atria are normal. Bubble contrast study is negative for PFO/ASD. Mitral Valve Trivial mitral valve insufficiency. Tricuspid Valve Trivial tricuspid valve insufficiency. Unable to estimate RV systolic pressure due to insufficient tricuspid regurgitant envelope. Aortic Valve Trisinus/trileaflet aortic valve. Pulmonic Valve The pulmonic valve is not well visualized. Trivial pulmonic valve insufficiency. Great Vessels Normal sized aortic root. Pericardium/Pleural Trivial pericardial effusion. Medication Diluted definity 2ml given slow IV push to enhance endocardial definition. Performed a rapid injection of agitated mix of 9 cc saline and 1cc air to assess for atrial septal defect. MMode/2D Measurements & Calculations LVIDd: 4.6 cm IVSd: 0.97 cm LVOT diam: 2.0 cm LVIDs: 3.0 cm LVPWd: 0.74 cm RVDd: 3.1 cm FS: 36.1 % LVOT area: 3.2 cm2 Ao root diam: 3.2 cm LAV(MOD-bp): 37.3 ml LVAd ap4: 29.5 cm2 LAV(MOD-bp) Indexed: 16.1 ml/m2 LVLd ap4: 8.1 cm LAV(MOD-sp2): 34.9 ml EDV(MOD-sp4): 86.9 ml LAV(MOD-sp4): 35.8 ml EDV(sp4-el): 90.5 ml LVAs ap4: 18.1 cm2 LVLs ap4: 7.4 cm ESV(MOD-sp4): 37.5 ml ESV(sp4-el): 37.7 ml EF(MOD-sp4): 56.9 % EF(sp4-el): 58.3 % SV(MOD-sp4): 49.4 ml SV(sp4-el): 52.8 ml Ao sinus diam: 3.[address] Junction: 2.5 cm LA A4 area: 14.9 cm2 LA dimension(2D): 3.2 cm RA A4 area: 14.5 cm2 TAPSE: 2.1 cm Time Measurements MV dec time: 0.17 sec Doppler Measurements & Calculations MV E max manjeet: 83.1 cm/sec Lat Peak E' Manjeet: 9.5 cm/sec Med Peak E' Manjeet: 11.4 cm/sec MV A max manjeet: 88.0 cm/sec E/E' lat: 8.8 E/E' med: 7.3 MV E/A: 0.94 MV V2 max: 109.2 cm/sec MV P1/2t max manjeet: 107.8 cm/sec Ao V2 max: 108.8 cm/sec MV max P.8 mmHg MV P1/2t: 62.1 msec Ao max P.8 mmHg MV V2 mean: 64.5 cm/sec MV dec slope: 508.6 cm/sec2 Ao V2 mean: 78.6 cm/sec MV mean P.0 mmHg MVA(P1/2t): 3.5 cm2 Ao mean P.7 mmHg MV V2 VTI: 28.5 cm Ao V2 VTI: 23.6 cm MVA(VTI): 2.6 cm2 AV (velocity ratio): 0.98 JOSE ANTONIO(I,D): 3.2 cm2 JOSE ANTONIO(V,D): 3.4 cm2 LV V1 max: 113.7 cm/sec SV(LVOT): 74.6 ml PA V2 max: 96.3 cm/sec LV V1 max P.2 mmHg PA max PG (full): 0.73 mmHg LV V1 mean P.2 mmHg LV V1 mean: 68.3 cm/sec LV V1 VTI: 23.2 cm ECHO/Echo Complete W/ Contrast Interpretation Summary The left ventricular ejection fraction is 65 %. Bubble contrast study is negative for PFO/ASD. Trivial pericardial effusion. Ordering Physician: Richard Jeronimo Performed By: Lauri Robert RCS
[2024-06-06 09:13] LABS: Hemoglobin A1c 5.7 % (3.8-5.6)
[2024-06-06 10:05] LABS: Phosphorus 3.4 mg/dL (2.5-4.9)
--- NOTE | 2024-06-06 11:20 | CON.PCM.NE_ITS ---
Assessment and Plan: Neuro Assessment/Plan COCO YIN is a 68 M with a past medical history of HTN, being evaluated by Teleneurology for acute ischemic stroke Pt presented with aphasia and left hemiparesis, received TNKA in the ED, CTA showed sever right carotid stenosis and left 70% carotid stenosis. Plan: post tnka protocol Permissive HTN SBP<180 and DBP<[address] head at 24h post tnka MRI brain w.o cont Hold ASA and chemical DVT ppx unitl repeat images shows no Hemorrhagic conversion high intensity statin consult vascular surgery TTE Hba1c and Lipid panel PT/OT Speech therapy vascular risk modification HPI Consult Data Date of Consult: 06/06/24 HPI Narrative HPI Narrative: COCO YIN, is a 68 M with hx of HTN and tobacco use who presents with aphasia and left hemiparesis. he was working on his car when he suddenly stopped. he was not able talk,had a left facial droop and left arm weakness. in the ED CT head showed no acute finding, TNKA was given [facility] Medical History (Updated 06/05/24 @ 17:[address] Donald Resendiz MD) Bone tumor Hypercholesteremia HTN (hypertension) Home Medications ?Medication ?Instructions ?Recorded ?Last Taken ?Type lisinopril 10 mg tablet 10 mg PO DAILY 06/05/24 Unknown History Allergy/AdvReac Type Severity Reaction Status Date / Time No Known Allergies Allergy Verified 06/05/24 16:44 Family History (Updated 06/05/24 @ 18:[address] Sha Brown MD) Other Diabetes Heart disease Surgical History (Updated 06/05/24 @ 18:[address] Sha Brown MD) History of bone graft Social History Smoking Status: Current every day smoker tobacco type: cigarettes Vital Signs Vital Signs Vital Signs: 06/05/24 16:36 06/05/24 16:38 06/05/24 16:43 Temperature 97.6 F L Temperature Source Temporal Pulse Rate 104 H Pulse Strength Respiratory Rate 16 Respiratory Effort Respiratory Depth Respiratory Pattern Blood Pressure 144/80 H Blood Pressure Mean 101 Blood Pressure Source Blood Pressure Position Blood Pressure Location Pulse Ox 95 Oxygen Delivery Method Room Air Nasal Cannula Oxygen Flow Rate (L/min) 2 06/05/24 16:56 06/05/24 17:00 06/05/24 17:15 Temperature 97.4 F L Temperature Source Oral Pulse Rate 102 H 105 H Pulse Strength Respiratory Rate 20 H 20 H Respiratory Effort Respiratory Depth Respiratory Pattern Blood Pressure 176/101 H 176/101 H 152/76 H Blood Pressure Mean 126 101 Blood Pressure Source Monitor Monitor Blood Pressure Position Supine Semi-Fowlers Blood Pressure Location Left Arm Pulse Ox 100 97 Oxygen Delivery Method Room Air Room Air Oxygen Flow Rate (L/min) 06/05/24 17:24 06/05/24 17:30 06/05/24 17:45 Temperature 97.9 F 97.7 F L 97.4 F L Temperature Source Oral Oral Pulse Rate 96 94 94 Pulse Strength Respiratory Rate 18 25 H 25 H Respiratory Effort Respiratory Depth Respiratory Pattern Blood Pressure 152/76 H 157/89 H 157/88 H Blood Pressure Mean 101 111 111 Blood Pressure Source Monitor Monitor Blood Pressure Position Semi-Fowlers Semi-Fowlers Blood Pressure Location Left Arm Left Arm Pulse Ox 96 97 96 Oxygen Delivery Method Room Air Room Air Oxygen Flow Rate (L/min) 06/05/24 18:00 06/05/24 18:15 06/05/24 18:30 Temperature 97.7 F L 97.7 F L 97.8 F Temperature Source Oral Oral Oral Pulse Rate 91 97 91 Pulse Strength Respiratory Rate 25 H 25 H 19 H Respiratory Effort Respiratory Depth Respiratory Pattern Blood Pressure 157/98 H 166/91 H 160/99 H Blood Pressure Mean 117 116 119 Blood Pressure Source Monitor Monitor Monitor Blood Pressure Position Semi-Fowlers Semi-Fowlers Semi-Fowlers Blood Pressure Location Left Arm Left Arm Left Arm Pulse Ox 97 97 96 Oxygen Delivery Method Room Air Room Air Room Air Oxygen Flow Rate (L/min) 06/05/24 18:45 06/05/24 19:15 06/05/24 19:21 Temperature 97.8 F 96.9 F L 96.9 F L Temperature Source Oral Temporal Temporal Pulse Rate 90 95 88 Pulse Strength Respiratory Rate 24 H 22 H 18 Respiratory Effort Respiratory Depth Respiratory Pattern Blood Pressure 160/86 H 158/105 H 158/105 H Blood Pressure Mean 110 122 122 Blood Pressure Source Monitor Monitor Monitor Blood Pressure Position Semi-Fowlers Semi-Fowlers Semi-Fowlers Blood Pressure Location Left Arm Right Arm Right Arm Pulse Ox 96 98 97 Oxygen Delivery Method Room Air Room Air Room Air Oxygen Flow Rate (L/min) 06/05/24 19:30 06/05/24 19:45 06/05/24 20:00 Temperature Temperature Source Pulse Rate 88 80 Pulse Strength Respiratory Rate 17 23 H Respiratory Effort Normal Non-Labored Respiratory Depth Normal Respiratory Pattern Normal Blood Pressure 171/110 H 148/99 H Blood Pressure Mean 130 115 Blood Pressure Source Monitor Monitor Blood Pressure Position Semi-Fowlers Blood Pressure Location Right Arm Pulse Ox 96 95 95 Oxygen Delivery Method Room Air Room Air Room Air Oxygen Flow Rate (L/min) 06/05/24 20:15 06/05/24 20:15 06/05/24 20:45 Temperature Temperature Source Pulse Rate 77 77 75 Pulse Strength Respiratory Rate 24 H 24 H 23 H Respiratory Effort Respiratory Depth Respiratory Pattern Blood Pressure 138/82 H 138/82 H 134/79 H Blood Pressure Mean 100 100 97 Blood Pressure Source Monitor Monitor Monitor Blood Pressure Position Blood Pressure Location Pulse Ox 95 95 95 Oxygen Delivery Method Room Air Room Air Room Air Oxygen Flow Rate (L/min) 06/05/24 20:45 06/05/24 21:45 06/05/24 22:00 Temperature Temperature Source Pulse Rate 75 76 Pulse Strength Normal (2+) Respiratory Rate 23 H 23 H Respiratory Effort Respiratory Depth Respiratory Pattern Blood Pressure 134/79 H 126/82 H Blood Pressure Mean 97 96 Blood Pressure Source Monitor Monitor Blood Pressure Position Blood Pressure Location Pulse Ox 95 94 Oxygen Delivery Method Room Air Room Air Oxygen Flow Rate (L/min) 06/05/24 22:15 06/05/24 22:45 06/05/24 23:15 Temperature Temperature Source Pulse Rate 79 75 82 Pulse Strength Respiratory Rate 24 H 19 H 26 H Respiratory Effort Respiratory Depth Respiratory Pattern Blood Pressure 138/84 H 121/84 H 130/70 H Blood Pressure Mean 102 96 90 Blood Pressure Source Monitor Monitor Monitor Blood Pressure Position Semi-Fowlers Blood Pressure Location Right Arm Pulse Ox 95 94 94 Oxygen Delivery Method Room Air Room Air Room Air Oxygen Flow Rate (L/min) 06/05/24 23:45 06/06/24 00:00 06/06/24 00:15 Temperature 98.6 F Temperature Source Temporal Pulse Rate 78 83 Pulse Strength Respiratory Rate 21 H 29 H Respiratory Effort Normal Non-Labored Respiratory Depth Normal Respiratory Pattern Normal Blood Pressure 111/68 128/97 H Blood Pressure Mean 82 107 Blood Pressure Source Monitor Monitor Blood Pressure Position Semi-Fowlers Blood Pressure Location Right Arm Pulse Ox 95 95 96 Oxygen Delivery Method Room Air Room Air Room Air Oxygen Flow Rate (L/min) 06/06/24 00:45 06/06/24 01:45 06/06/24 02:45 Temperature Temperature Source Pulse Rate 80 84 81 Pulse Strength Respiratory Rate 17 26 H 21 H Respiratory Effort Respiratory Depth Respiratory Pattern Blood Pressure 117/84 H 107/75 114/79 Blood Pressure Mean 95 85 90 Blood Pressure Source Monitor Monitor Monitor Blood Pressure Position Semi-Fowlers Blood Pressure Location Right Arm Pulse Ox 95 93 94 Oxygen Delivery Method Room Air Room Air Room Air Oxygen Flow Rate (L/min) 06/06/24 03:30 06/06/24 03:45 06/06/24 04:45 Temperature 97 F L Temperature Source Temporal Pulse Rate 72 80 Pulse Strength Respiratory Rate 22 H 21 H Respiratory Effort Normal Non-Labored Respiratory Depth Normal Respiratory Pattern Normal Blood Pressure 107/66 117/66 Blood Pressure Mean 79 83 Blood Pressure Source Monitor Monitor Blood Pressure Position Semi-Fowlers Blood Pressure Location Right Arm Pulse Ox 95 94 95 Oxygen Delivery Method Room Air Room Air Room Air Oxygen Flow Rate (L/min) 06/06/24 05:45 06/06/24 06:45 06/06/24 07:00 Temperature Temperature Source Pulse Rate 86 73 78 Pulse Strength Respiratory Rate 21 H 19 H Respiratory Effort Respiratory Depth Respiratory Pattern Blood Pressure 146/79 H 114/71 Blood Pressure Mean 101 85 Blood Pressure Source Monitor Monitor Blood Pressure Position Semi-Fowlers Blood Pressure Location Right Arm Pulse Ox 96 93 Oxygen Delivery Method Room Air Room Air Oxygen Flow Rate (L/min) 06/06/24 07:45 06/06/24 08:45 06/06/24 09:40 Temperature 97.8 F Temperature Source Temporal Temporal Pulse Rate 72 85 Pulse Strength Normal (2+) Respiratory Rate 21 H 19 H Respiratory Effort Respiratory Depth Respiratory Pattern Blood Pressure 122/78 H 149/87 H Blood Pressure Mean 92 107 Blood Pressure Source Monitor Monitor Blood Pressure Position Semi-Fowlers Semi-Fowlers Blood Pressure Location Right Arm Left Arm Pulse Ox 95 95 Oxygen Delivery Method Room Air Room Air Oxygen Flow Rate (L/min) 06/06/24 09:45 06/06/24 10:45 Temperature Temperature Source Pulse Rate 85 79 Pulse Strength Respiratory Rate 23 H 25 H Respiratory Effort Respiratory Depth Respiratory Pattern Blood Pressure 147/78 H 134/93 H Blood Pressure Mean 101 106 Blood Pressure Source Monitor Monitor Blood Pressure Position Semi-Fowlers Semi-Fowlers Blood Pressure Location Left Arm Left Arm Pulse Ox 98 95 Oxygen Delivery Method Room Air Room Air Oxygen Flow Rate (L/min) Weight Weight: 101.321 kg Body Mass Index (BMI) 27.1 EEG Results Procedure Details EEG Procedure Details: COCO YIN is a 68 year old M with a past medical history of , who presents for evaluation of Electroencephalogram on DATE at TIME NIHSS NIHSS Nursing Documentation NIHSS Nursing Documentation: Thrombolytic: Vital Signs & NIHSS Start: 06/05/24 16:45 Text: Assess and document vital signs and NIHSS Status: Active within 15 minutes of tenecteplase bolus administration Freq: Q1H Protocol: Activity Type Activity Date Activity User E-sign Co-sign Detail Recorded Client Recorded Date Recorded By Document 06/06/24 10:45 [facility] [id number] 06/06/24 11:02 MESERET 06/06/24 10:45 Vital Signs [Pulse] -Pulse Rate (60-100) 79 -Pulse Location Monitor [Respirations] -Respiratory Rate (12-18) 25 H -Respiratory rate source Monitor -Pulse Oximetry 95 -Oxygen Delivery Method Room Air [Blood Pressure] -Blood Pressure (90/60-120/80) 134/93 H -Blood Pressure Mean 106 -Source Monitor -Position Semi-Fowlers -Blood Pressure Location Left Arm -Is the SBP > or = 180 No -Is the DBP > or = 105 No NIH Stroke Scale [NIHSS] A score of 0 is normal or asymptomatic . Total possible score is 42. Inpatient: RN or Physician to activate a stroke alert for onset of new stroke symptoms or with NIHSS increase >/= 3 points. Following change in neurological status, NIHSS will be performed per physician order or more frequently PRN. -1a. Level of Consciousness Alert; keenly responsive -1b. LOC Questions Answers BOTH questions correctly. -1c. LOC Commands Performs both tasks correctly . -2. Best Gaze Normal -3. Visual No visual loss -4. Facial Palsy Minor paralysis (flattened nasolabial fold , asymmetry on smiling) -5a. Left Arm No drift; arm holds 90 (or 45 ) degrees for full 10 seconds -5b. Right Arm No drift; arm holds 90 (or 45 ) degrees for full 10 seconds -6a. Left Leg No drift; leg holds 30-degree position for full 5 seconds -6b. Right Leg No drift; leg holds 30-degree position for full 5 seconds -7. Limb Ataxia Absent -8. Sensory Normal; no sensory loss -9. Best Language No aphasia; normal -10. Dysarthria Mild-to- moderate dysarthria; -11. Extinction and Inattention No abnormality -Total 2 Query Text:A score of 0 is normal or asymptomatic. Total possible score is 42 . ED: Notify Physician for NIHSS increase by > / = 3 points. Inpatient: RN or Physician to activate a stroke alert for NIHSS increase of > / = 3 points. Physical Exam Neuro oriented x3 Neuro Narrative: mild laft nasolabial fold flattening Sensorium / Orientation: awake, alert, oriented to person and oriented to place Cranial Nerves: CN VII (facial) Laterality: left Speech: speech abnormal Details: Positive for slurred (mild dysarthria) Motor Exam: strength 5/5 throughout Lab / Micro Data 06/06/24 03:50 06/06/24 03:50 Labs: Laboratory Results - last 24 hr 06/05/24 16:37: WBC 9.1, RBC 4.92, Hgb 17.4 H, Hct 48.8, MCV 99.2 H, MCH 35.4 H, MCHC 35.7, RDW Std Deviation 45.9 H, RDW Coeff of Kassidy 12.6, Plt Count 251, MPV 9.5, Immature Gran % (Auto) 0.400, Neut % (Auto) 74.3 H, Lymph % (Auto) 17.4 L, Lanier % (Auto) 6.2, Eos % (Auto) 0.9, Baso % (Auto) 0.8, Absolute Neuts (auto) 6.8, Absolute Lymphs (auto) 1.58, Nucleated RBC % 0, PT 13.1, INR 1.0, APTT 28.6, Sodium 137, Potassium 3.5, Chloride 103, Carbon Dioxide 25.0, Anion Gap 9, BUN 15, Creatinine 1.02, Estim Creat Clear Calc 82.83, Est GFR (MDRD) Af Amer 94, Est GFR (MDRD) Non-Af 78, BUN/Creatinine Ratio 14.7, Glucose 206 H, Calcium 9.5, Troponin I High Sens 4 06/05/24 17:30: Triglycerides 212 H, Cholesterol 256 H, LDL Cholesterol 166 H, V LDL Cholesterol 42 H, HDL Cholesterol 48 06/06/24 03:50: WBC 12.1 H, RBC 4.51 L, Hgb 15.6, Hct 45.1, MCV 100.0 H, MCH 34.6 H, MCHC 34.6, RDW Std Deviation 46.9 H, RDW Coeff of Kassidy 12.8, Plt Count 222, MPV 9.6, Immature Gran % (Auto) 0.700, Neut % (Auto) 80.8 H, Lymph % (Auto) 12.3 L, Lanier % (Auto) 5.7, Eos % (Auto) 0.1, Baso % (Auto) 0.4, Absolute Neuts (auto) 9.8 H, Absolute Lymphs (auto) 1.48, Nucleated RBC % 0, Sodium 139, Potassium 4.1, Chloride 109 H, Carbon Dioxide 24.0, Anion Gap 6, BUN 13, Creatinine 0.91, Estim Creat Clear Calc 98.03, Est GFR (MDRD) Af Amer 107, Est GFR (MDRD) Non-Af 89, BUN/Creatinine Ratio 14.3, Glucose 131 H, Calcium 8.9 06/06/24 03:57: Hemoglobin A1c 5.7 H, Phosphorus 3.4, Magnesium 2.0, TSH 1.770 Rhythm Strip Rhythm Strip: Sinus Rhythm Rate: 92 Ectopy: PVC(s) Imaging Radiology Impression Brain CT 06/05/24 16:36 IMPRESSION: No acute intracranial abnormality. Chronic involutional and ischemic changes of the brain. N.B. : The above Results were Read Back by Jonathon Yanez MD to Donald Resendiz MD, and understanding confirmed on 06/05/2024 16:48:18 (ET). Electronically Signed: Jonathon Yanez MD at 16:48 EDT , Head/Neck CTA 06/05/24 16:37 IMPRESSION: 1. Mild to moderate limitation of the intracranial circulation due to motion artifact. Moderate calcification involving the cavernous carotid vessels bilaterally no chritsian occlusion however motion does limit evaluation/quantification of stenoses of the cavernous carotid vessels. 2. Limited visualization of mid to distal branches of middle cerebral arteries bilaterally due to technical factors. No proximal MCA occlusion or filling defect. 3. No CTA evidence of LVO given the limitations the current exam. 4. Bilateral cervical carotid/carotid bulb stenosis. Severe stenosis on the RIGHT, greater than 70%. Stenosis on the LEFT estimated at moderate (50-69%), and closer to 69%. 5. No evidence of stenosis or occlusion of the cervical course of the vertebral arteries. N.B. : The above Results were Read Back by Jeronimo Howell MD to Donald Resendiz MD, and understanding confirmed on 06/05/2024 17:52:48 (ET). Electronically Signed: Jeronimo Howell MD at 17:54 EDT , ADDENDUM: 06/05/24 1801 IMPRESSION: 1. Mild to moderate limitation of the intracranial circulation due to motion artifact. Moderate calcification involving the cavernous carotid vessels bilaterally no christian occlusion however motion does limit evaluation/quantification of stenoses of the cavernous carotid vessels. 2. Limited visualization of mid to distal branches of middle cerebral arteries bilaterally due to technical factors. No proximal MCA occlusion or filling defect. 3. No CTA evidence of LVO given the limitations the current exam. 4. Bilateral cervical carotid/carotid bulb stenosis. Severe stenosis on the RIGHT, greater than 70%. Stenosis on the LEFT estimated at moderate (50-69%), and closer to 69%. 5. No evidence of stenosis or occlusion of the cervical course of the vertebral arteries. N.B. : The above Results were Read Back by Jeronimo Howell MD to Donald Resendiz MD, and understanding confirmed on 06/05/2024 17:52:48 (ET). Electronically Signed: Jeronimo Howell MD at 17:54 EDT , Chest X-Ray 06/05/24 17:28 IMPRESSION: No radiographic evidence of acute cardiopulmonary disease. Electronically Signed: Mary Pappas MD at 18:09 EDT Reading Location ID and State: [id number] / Tel , Service support , Active Medications Active Medications Active Medications: Current Medications Generic Name Dose Route Start Last Admin Trade Name Freq PRN Reason Stop Dose Admin Nicardipine/Sodium Chloride 20 mg in 200 mls @ 50 mls/hr 06/05/24 19:22 06/06/24 11:02 Cardene-Ravi 20 Mg/200 Ml Soln CONT INF 06/06/24 19:22 Not Given Q4H KAREN Protocol 5 MG/HR Sodium Chloride 250 mls @ 15 mls/hr 06/05/24 19:39 06/06/24 03:00 IV 0 mls/hr .[id number] PRN Infusion Additional IVPB Infusion Sodium Chloride 250 mls @ 15 mls/hr 06/05/24 19:39 IV .[id number] PRN Saline Flush Pantoprazole Sodium 40 mg/ 110 mls @ 330 mls/hr 06/05/24 21:35 06/05/24 22:40 Sodium Chloride IV Infused Q24 KAREN Infusion Ondansetron HCl 4 mg 06/05/24 21:34 06/05/24 21:48 Ondansetron 4 Mg/2 Ml Vial IV 4 mg Q6H PRN PRN Administration NAUSEA/VOMITING Sodium Chloride 10 - 40 ml 06/05/24 19:39 06/05/24 21:49 0.9% Saline Lock 10 Ml Syringe IV 20 ml UD PRN Administration SALINE FLUSH
[2024-06-06] MEDS: Pantoprazole Sodium 40 MG in 0.9% Normal Saline (100mL MB+) 100 ML 330 MG IV (16:04)
--- NOTE | 2024-06-06 17:00 | CT_ITS ---
STUDY: CT BRAIN WITHOUT CONTRAST REASON FOR EXAM: Male, 68 years old. 24 hour post TNK Individualized dose optimization techniques were used for this CT. TECHNIQUE: Transaxial CT imaging of the brain was performed without administration of intravenous contrast material. COMPARISON: Study done yesterday FINDINGS: There are calcifications noted in the distal vertebral arteries. There are calcifications noted in the cavernous carotid arteries. This is consistent for atherosclerotic disease. Normal calvarium. Normal soft tissues. Normal size ventricles and extra-axial spaces for the patient''s age. There are areas of decreased attenuation within the white matter tracts of the supratentorial brain, consistent with microvascular disease changes. Normal basal ganglia and thalami. Normal brainstem. There is mild cerebellar atrophy. There is no intracranial hemorrhage. There are no findings of an acute ischemic infarction. Normal visualized paranasal sinuses. ASPECTS Score for Acute Strokes: 07/01 CT/Brain/Head without Contrast IMPRESSION: There are no acute findings. Chronic involutional changes of the brain. Electronically Signed: Jermaine Bell MD at 17:22 EDT ,
--- NOTE | 2024-06-06 18:09 | CON.PCM.CC_ITS ---
HPI Consult Data Date of Consult: 06/06/24 HPI Narrative HPI Narrative: Mr. Dow is a 68 yr old male with a pmxh of ETOH abuse and hypertension who presented with left hand and arm weakness. He was found to have speech that was slurred and that he was developing a left facial droop. On arrival to the hospital he was evaluated as a stroke team and given TNK. He had NIH of 5 secondary to the dysarthria as well as left upper extremity weakness and some sensory loss. In the ICU , patient has been stable. Speech saw him and put him on a cardiac diet Lines - PIVS Tubes - perla Gtts - none PFSH Medical History (Updated 06/05/24 @ 17:[address] Donald Resendiz MD) Bone tumor Hypercholesteremia HTN (hypertension) Home Medications ?Medication ?Instructions ?Recorded ?Last Taken ?Type lisinopril 10 mg tablet 10 mg PO DAILY 06/05/24 Unknown History Allergy/AdvReac Type Severity Reaction Status Date / Time No Known Allergies Allergy Verified 06/05/24 16:44 Family History (Updated 06/05/24 @ 18:[address] Sha Brown MD) Other Diabetes Heart disease Surgical History (Updated 06/05/24 @ 18:[address] Sha Brown MD) History of bone graft Social History Smoking Status: Current every day smoker tobacco type: cigarettes Objective Data Objective Data Vital Signs: Vital Signs Last response 3 Temperature 36.9 C 06/06/24 15:45 Temperature Source Temporal 06/06/24 15:45 Pulse Rate 95 06/06/24 16:45 Pulse Strength Normal (2+) 06/06/24 09:40 Respiratory Rate 21 H 06/06/24 16:45 Respiratory Effort Normal, Non-Labored 06/06/24 03:30 Respiratory Depth Normal 06/06/24 03:30 Respiratory Pattern Normal 06/06/24 03:30 Blood Pressure 165/97 H 06/06/24 16:45 Blood Pressure Mean 119 06/06/24 16:45 Blood Pressure Source Monitor 06/06/24 16:45 Blood Pressure Position Semi-Fowlers 06/06/24 16:45 Blood Pressure Location Left Arm 06/06/24 16:45 Pulse Ox 96 06/06/24 16:45 Oxygen Delivery Method Room Air 06/06/24 16:45 Oxygen Flow Rate (L/min) 2 06/05/24 16:43 I&O: I&O Last 24 Hours 3 06/05/24 06/06/24 06/06/24 23:59 11:59 23:59 Intake Total 290 / 290 305 / 1340 1035 / 1340 Output Total 1150 / 1150 550 / 1475 925 / 1475 Balance -860 / -860 -245 / -135 110 / -135 I&O: Total Stay 3 06/05/24 16:35 thru 06/06/24 17:29 Intake Total 1630 Output Total 2625 Balance -995 Current Meds Ordered / Administered: Current meds ordered / Administered 3 Generic Name Dose Route Start Last Admin Trade Name Freq PRN Reason Stop Dose Admin Acetaminophen 650 mg 06/06/24 17:45 Acetaminophen 325 Mg Tablet PO Q4H PRN PRN Pain 1-10 or Temp > 100.4 F Al Hydrox/Mg Hydrox/Simethicone 30 ml 06/06/24 17:45 Mag /Aluminum/Simeth Wch Udc 30 Ml Oral.Susp PO Q6H PRN PRN dyspesia Bisacodyl 10 mg 06/06/24 17:45 Bisacodyl 10 Mg Suppository RC DAILY PRN Constipation Dicyclomine HCl 20 mg 06/06/24 17:45 Dicyclomine 10 Mg Capsule PO Q6H PRN PRN abdominal discomfort Folic Acid 1 mg 06/07/24 08:00 Folic Acid 1 Mg Tablet PO BREAKFAST KAREN Gabapentin 300 mg 06/06/24 17:45 Gabapentin 300 Mg Capsule PO Q8H PRN PRN moderate to severe anxiety Hydroxyzine Pamoate 50 mg 06/06/24 17:45 Hydroxyzine Leah 25 Mg Capsule PO Q4H PRN PRN mild anxiety Nicardipine/Sodium Chloride 20 mg in 200 mls @ 50 mls/hr 06/05/24 19:22 06/06/24 16:07 Cardene-Ravi 20 Mg/200 Ml Soln CONT INF 06/06/24 19:22 Not Given Q4H KAREN Protocol 5 MG/HR Sodium Chloride 250 mls @ 15 mls/hr 06/05/24 19:39 06/06/24 03:00 IV 0 mls/hr .[id number] PRN Infusion Additional IVPB Infusion Sodium Chloride 250 mls @ 15 mls/hr 06/05/24 19:39 IV .[id number] PRN Saline Flush Pantoprazole Sodium 40 mg/ 110 mls @ 330 mls/hr 06/05/24 21:35 06/06/24 17:24 Sodium Chloride IV Infused Q24 KAREN Infusion Loperamide HCl 2 mg 06/06/24 17:45 Loperamide 2 Mg Capsule PO Q4H PRN PRN Loose Stools Nicotine 21 mg 06/06/24 18:00 Nicotine 21 Mg Patch TD DAILY KAREN Ondansetron HCl 4 mg 06/05/24 21:34 06/05/24 21:48 Ondansetron 4 Mg/2 Ml Vial IV 4 mg Q6H PRN PRN Administration NAUSEA/VOMITING Phenobarbital 97.2 mg 06/06/24 18:00 Phenobarbital 32.4 Mg Tablet PO 06/11/24 01:59 Q4H KAREN Taper Senna 2 tablet 06/06/24 17:45 Senna Tablet PO QHS PRN Constipation Sodium Chloride 10 - 40 ml 06/05/24 19:39 06/05/24 21:49 0.9% Saline Lock 10 Ml Syringe IV 20 ml UD PRN Administration SALINE FLUSH Thiamine HCl 100 mg 06/07/24 08:00 Thiamine Hydrochloride 100 Mg Tablet PO DAILYCM KAREN Trazodone HCl 100 mg 06/06/24 17:45 Trazodone 100 Mg Tablet PO QHS PRN INSOMNIA Physical Exam Const alert and oriented x3 HEENT normocephalic Eyes PERRL and EOMs intact bilaterally Lymph Lymphatic: no lymphadenopathy noted Resp normal respiratory effort and no use of accessory muscles Effort and Inspection: able to speak in complete sentences Auscultation: clear to auscultation bilaterally Cardio regular rate, regular rhythm and S1 normal heart sound GI normal to inspection, nondistended, normoactive bowel sounds Skin no rashes or lesions noted Neuro oriented x3 Neuro Narrative: slurred speech Psych cooperative and affect normal Lab / Micro Data 06/06/24 03:50 06/06/24 03:50 Labs: Laboratory Results - last 24 hr 06/05/24 17:30: Triglycerides 212 H, Cholesterol 256 H, LDL Cholesterol 166 H, V LDL Cholesterol 42 H, HDL Cholesterol 48 06/06/24 03:50: WBC 12.1 H, RBC 4.51 L, Hgb 15.6, Hct 45.1, MCV 100.0 H, MCH 34.6 H, MCHC 34.6, RDW Std Deviation 46.9 H, RDW Coeff of Kassidy 12.8, Plt Count 222, MPV 9.6, Immature Gran % (Auto) 0.700, Neut % (Auto) 80.8 H, Lymph % (Auto) 12.3 L, [place] % (Auto) 5.7, Eos % (Auto) 0.1, Baso % (Auto) 0.4, Absolute Neuts (auto) 9.8 H, Absolute Lymphs (auto) 1.48, Nucleated RBC % 0, Sodium 139, Potassium 4.1, Chloride 109 H, Carbon Dioxide 24.0, Anion Gap 6, BUN 13, Creatinine 0.91, Estim Creat Clear Calc 98.03, Est GFR (MDRD) Af Amer 107, Est GFR (MDRD) Non-Af 89, BUN/Creatinine Ratio 14.3, Glucose 131 H, Calcium 8.9 06/06/24 03:57: Hemoglobin A1c 5.7 H, Phosphorus 3.4, Magnesium 2.0, TSH 1.770 Rhythm Strip Rhythm Strip: Sinus Rhythm Rate: 92 Ectopy: PVC(s) Imaging Radiology Impression Brain CT 06/05/24 16:36 IMPRESSION: No acute intracranial abnormality. Chronic involutional and ischemic changes of the brain. N.B. : The above Results were Read Back by Jonathon Yanez MD to Donald Resendiz MD, and understanding confirmed on 06/05/2024 16:48:18 (ET). Electronically Signed: Jonathon Yanez MD at 16:48 EDT , Chest X-Ray 06/05/24 17:28 IMPRESSION: No radiographic evidence of acute cardiopulmonary disease. Electronically Signed: Mary Pappas MD at 18:09 EDT Reading Location ID and State: [id number] / Tel , Service support , Brain CT 06/06/24 17:00 IMPRESSION: There are no acute findings. Chronic involutional changes of the brain. Electronically Signed: Jermaine Bell MD at 17:22 EDT , Assessment and Plan . Assessment and plan: Right MCA stroke - s/p TNK - doing well improving - CT head done - needs secondary med prevention - needs to stop smoking Critical Care Time 60 mins The entirety of this encounter was done via Telemedicine
[2024-06-06] MEDS: Phenobarbital 32.4 MG Tablet 64.8 MG PO ×2 (19:31→23:10)
[2024-06-06 22:17] LABS: Amphetamine Urine VISTA NEGATIVE (<1000 ng/mL); Barbiturate Urine VISTA POSITIVE (< 200 ng/mL); Benzodiazepine Urine VISTA NEGATIVE (< 200 ng/mL); Cocaine Urine VISTA NEGATIVE (< 300 ng/mL); Ecstacy Urine VISTA NEGATIVE (< 500 ng/mL); Methadone Urine VISTA NEGATIVE (< 300 ng/mL); PCP Urine VISTA NEGATIVE (< 25 ng/mL); THC Urine VISTA NEGATIVE (< 50 ng/mL); Vista UDS pH Range 6
[2024-06-07] VITALS (13 sets, daily range): BP systolic 124–169; BP diastolic 75–94; PULSE 66–98; RESP 18–22; TEMP 35.8–36.2; O2SAT 90–98; BMI 27.1; BMI 26.4
[2024-06-07] MEDS: Phenobarbital 32.4 MG Tablet 64.8 MG PO ×3 (02:20→13:51)
[2024-06-07 04:40] LABS: Absolute Lymphocyte Count 1.55 X10^3/uL (0.83-4.51); Absolute Neutrophil Count 5.6 X10^3/uL (2.0-7.7); Basophil# 0.07 X10^3/uL; Basophil% 0.9 % (0-1); Eosinophil# 0.09 X10^3/uL; Eosinophils% 1.1 % (0-5); Hematocrit 46.4 % (40-54); Hemoglobin 15.9 g/dL (13.0-16.5); Lymphocyte # 1.55 X10^3/ul (0.83-4.51); Lymphocyte % 19.6 % (19-41); Mean Corp Hgb Conc 34.3 g/dL (32-36); Mean Corpuscular Hgb 34.6 pg (27.0-32.0); Mean Corpuscular Volume 101.1 fL (80-94); Mean Platelet Vol. 9.3 fl (6.2-12.0); Monocyte# 0.52 X10^3/uL; Monocyte% 6.6 % (0-10); NRBC Flagged by Analyzer 0 % (0-5); Neutrophil # 5.62 X10^3/uL (2.7-7.7); Neutrophil % 71.3 % (47-70); Platelet Count 192 K/mm3 (150-450); RBC Distribution Width SD 47.8 fl (35.1-43.9); Red Blood Count 4.59 M/mm3 (4.6-6.2); White Blood Count 7.9 K/mm3 (4.4-11.0)
[2024-06-07 04:54] LABS: Anion Gap 6 (5-15); BUN 14 mg/dL (7-18); BUN/Creat Ratio 16.2 RATIO (10-20); Calcium,Total 9.2 mg/dL (8.5-10.1); Chloride 108 mmol/L (98-107); Creatinine, Serum 0.87 mg/dL (0.70-1.30); EST Glomerular Filtration Rate 94 mL/min (>60); Est Glom Filt Rate - Afr Amer 113 mL/min (>60); Estimated Creatinine Clearance 102.54 ml/min; Glucose 119 mg/dL (74-106); Sodium Level 138 mmol/L (136-145)
--- NOTE | 2024-06-07 06:21 | PN.CC_ITS ---
Assessment & Plan Assessment/Plan (1) Acute ischemic right MCA stroke: PLAN: Plan RECOMMENDATIONS: 1. MRI brain today as scheduled. 2. PT/OT evaluations. 3. Alcohol withdrawal management per hospitalist. 4. Encourage incentive spirometer use and mobilize patient as tolerated. 5. The patient is medically stable for transfer out of the intensive care unit. Will sign off from a critical care perspective. IMPRESSIONS: 1. Acute ischemic CVA status post tenecteplase The patient has been medically managed in the ICU setting per protocol. Follow- up CT head at 24 hours demonstrated no intracranial pathology. There are plans to obtain MRI brain today. If unremarkable, agree with starting aspirin and pharmacologic prophylaxis for DVT. PT/OT evaluations today. Echocardiogram is pending. 2. Concern for alcohol withdrawal The patient reported that he typically consumes 2 beers per day on average. The patient was apparently demonstrating symptoms concerning for alcohol withdrawal on June 06 and was subsequently placed on a phenobarbital taper and CIWA protocol. Continue current medical management. 3. History of hypertension/hyperlipidemia/carotid artery stenosis/tobacco dependency Complicates care, management, recovery and prognosis. Continue home medications as indicated. Smoking cessation is advised. This note was generated with [employer] dictation software. It may contain incorrect words, spelling, and punctuation that were not noted in checking the note before signing. Subjective Subjective The patient was seen and examined at the bedside this morning. Events from the last 24 hours have been reviewed. The patient is currently afebrile, hemodynamically stable and maintaining appropriate oxygen saturations on room air. The patient has no specific complaints this morning. He did report that, on average, he drinks 2 beers per day. Over concerns for alcohol withdrawal symptoms, the patient was initiated on a phenobarbital taper yesterday. Follow- up CT head from last evening was unremarkable. Morning labs are stable. Objective Data Objective Data The patient's most recent lab work, culture data and imaging studies have all been personally reviewed. Vital Signs: Vital Signs Temp Pulse Resp BP Pulse Ox O2 Del Method O2 Flow Rate 96.5 F L 66 20 H 133/88 H 94 Room Air 2 06/07/24 04:00 06/07/24 05:00 06/07/24 05:00 06/07/24 05:00 06/07/24 05:00 06/07/24 05:00 06/05/24 16:43 Oxygen Flow Rate (L/min) 2 Oxygen Delivery Method Room Air Weight: 217 lb 9.6 oz Body Mass Index (BMI) 26.4 Intake & Output: Intake and Output for Last 24 Hours 06/05/24 06/06/24 06/07/24 23:59 23:59 23:59 Intake Total 290 / 290 1340 / 1340 Output Total 1150 / 1150 1475 / 1925 450 / 450 Balance -860 / -860 -135 / -585 -450 / -450 Lab / Micro Data Attestation: I reviewed the patient's lab results. 06/07/24 04:30 06/07/24 04:30 Labs: Laboratory Results - last 24 hr 06/06/24 03:57: Hemoglobin A1c 5.7 H, Phosphorus 3.4, Magnesium 2.0, TSH 1.770 06/06/24 21:50: Urine Opiates Screen NEGATIVE, Urine Methadone Screen NEGATIVE, Ur Barbiturates Screen POSITIVE H, Ur Phencyclidine Scrn NEGATIVE, Ur Amphetamines Screen NEGATIVE, MDMA (Ecstasy) Screen NEGATIVE, U Benzodiazepines Scrn NEGATIVE, Urine Cocaine Screen NEGATIVE, U Cannabinoids Screen NEGATIVE, Ur Drug Screen Comment 06/07/24 04:30: WBC 7.9, RBC 4.59 L, Hgb 15.9, Hct 46.4, MCV 101.1 H, MCH 34.6 H , MCHC 34.3, RDW Std Deviation 47.8 H, RDW Coeff of Kassidy 13.0, Plt Count 192, MPV 9.3, Immature Gran % (Auto) 0.500, Neut % (Auto) 71.3 H, Lymph % (Auto) 19.6, [place] % (Auto) 6.6, Eos % (Auto) 1.1, Baso % (Auto) 0.9, Absolute Neuts (auto) 5.6, Absolute Lymphs (auto) 1.55, Nucleated RBC % 0, Sodium 138, Potassium 4.0, Chloride 108 H, Carbon Dioxide 24.0, Anion Gap 6, BUN 14, Creatinine 0.87, Estim Creat Clear Calc 102.54, Est GFR (MDRD) Af Amer 113, Est GFR (MDRD) Non-Af 94, BUN/Creatinine Ratio 16.2, Glucose 119 H, Calcium 9.2 Radiography Diagnostic Testing: Radiology Impression Brain CT 06/06/24 17:00 IMPRESSION: There are no acute findings. Chronic involutional changes of the brain. Electronically Signed: Jermaine Bell MD at 17:22 EDT , Rhythm Strip Rhythm Strip: Sinus Rhythm Rate: 92 Ectopy: PVC(s) Physical Exam Const alert and no apparent distress General Appearance: cooperative HEENT normocephalic and head/scalp atraumatic Eyes PERRL, EOMs intact bilaterally and conjunctivae normal Neck supple General: trachea midline Chest inspection of chest normal Resp normal respiratory effort Auscultation: Negative for rales, rhonchi or wheezes Cardio regular rate and regular rhythm GI normal to inspection, nondistended, normoactive bowel sounds Extremity no clubbing, cyanosis or edema Skin no rashes or lesions noted Neuro CN's II-XII intact bilaterally and moves all extremities Neuro Narrative: Mild dysarthria noted. Psych cooperative and affect normal Charges/Coding Visit Charges Inpatient E&M: 58450 Subs Hosp L2
--- NOTE | 2024-06-07 08:48 | PCM.PN.HOSP ---
Reason for Visit Reason for Visit: Diagnoses Cerebral infarction due to unspecified occlusion or stenosis of right middle cerebral artery (06/05/24) Objective Data Objective Data Vital Signs: Vital Signs Temp Pulse Resp BP Pulse Ox O2 Del Method O2 Flow Rate 96.5 F L 66 20 H 156/94 H 91 Room Air 2 06/07/24 04:00 06/07/24 08:00 06/07/24 07:00 06/07/24 07:00 06/07/24 07:00 06/07/24 07:00 06/05/24 16:43 Oxygen Flow Rate (L/min) 2 Oxygen Delivery Method Room Air Weight: 217 lb 9.6 oz Body Mass Index (BMI) 26.4 Intake & Output: Intake and Output for Last 24 Hours 06/05/24 06/06/24 06/07/24 23:59 23:59 23:59 Intake Total 290 / 290 1340 / 1340 Output Total 1150 / 1150 1475 / 1925 950 / 950 Balance -860 / -860 -135 / -585 -950 / -950 Lab / Micro Data 06/07/24 04:30 06/07/24 04:30 Labs: Laboratory Results - last 24 hr 06/06/24 03:57: Hemoglobin A1c 5.7 H, Phosphorus 3.4, Magnesium 2.0 06/06/24 21:50: Urine Opiates Screen NEGATIVE, Urine Methadone Screen NEGATIVE, Ur Barbiturates Screen POSITIVE H, Ur Phencyclidine Scrn NEGATIVE, Ur Amphetamines Screen NEGATIVE, MDMA (Ecstasy) Screen NEGATIVE, U Benzodiazepines Scrn NEGATIVE, Urine Cocaine Screen NEGATIVE, U Cannabinoids Screen NEGATIVE, Ur Drug Screen Comment 06/07/24 04:30: WBC 7.9, RBC 4.59 L, Hgb 15.9, Hct 46.4, MCV 101.1 H, MCH 34.6 H, MCHC 34.3, RDW Std Deviation 47.8 H, RDW Coeff of Kassidy 13.0, Plt Count 192, MPV 9.3, Immature Gran % (Auto) 0.500, Neut % (Auto) 71.3 H, Lymph % (Auto) 19.6, [place] % (Auto) 6.6, Eos % (Auto) 1.1, Baso % (Auto) 0.9, Absolute Neuts (auto) 5.6, Absolute Lymphs (auto) 1.55, Nucleated RBC % 0, Sodium 138, Potassium 4.0, Chloride 108 H, Carbon Dioxide 24.0, Anion Gap 6, BUN 14, Creatinine 0.87, Estim Creat Clear Calc 102.54, Est GFR (MDRD) Af Amer 113, Est GFR (MDRD) Non-Af 94, BUN/Creatinine Ratio 16.2, Glucose 119 H, Calcium 9.2 Radiography Diagnostic Testing: Radiology Impression Brain CT 06/06/24 17:00 IMPRESSION: There are no acute findings. Chronic involutional changes of the brain. Electronically Signed: Jermaine Bell MD at 17:22 EDT , Rhythm Strip Rhythm Strip: Sinus Rhythm Rate: 92 Ectopy: PVC(s) Physical Exam Narrative Seen and examined. Nursing staff called me yesterday evening that the patient has history of chronic heavy alcohol use daily. He also had tactile hallucination of something creeping or crawling in the skin. In the past patient DT when he stopped drinking. Patient undergoing echo Physical exam General: Alert, Oriented x3, Cooperative HEENT: Atraumatic, PERRLA, EOMI, Normocephalic Oral: No Gingival or Mucosal Lesions/ Ulcerations Neck: Supple, No JVD, Negative Carotid Bruits Chest wall/Lungs: Air entry diminished in bilateral lung bases. Mild bilateral expiratory rhonchi. Bronchial breathing Cardiovascular: sinus rhythm with multiple PVCs. Normal S1, Normal S2, No M/G/R Abdomen: Bowel Sounds Present, Soft, Non Tender, Non-Distended : No dysuria. No renal angle tenderness. No suprapubic tenderness. Extremities: No edema, Capillary Refill Less than 3 Seconds Skin: No rashes, No breakdown Musculoskeletal: No Tenderness to Palpation of Joints or Extremities. ROM full and intact. Neurological: Facial paralysis/asymmetry. NIH stroke scale 1. No aphasia or dysarthria noticed. DTR 2+/4. No acute focal neurological deficit. Per [facility] charting, NIH stroke scale 2, minor facial paralysis and mild/moderate dysarthria. Psych/Mental Status: Normal Affect, Appropriate. Assessment & Plan Assessment/Plan (1) Acute ischemic right MCA stroke: PLAN: Plan 68-year-old gentleman was admitted after prehospital stroke alert by EMS for 15 to 20 minutes of sudden onset of left-sided weakness, trouble speaking and frontal headache. His BP was low a week ago and then he stopped taking lisinopril. EMS vitals shows BP 147/95, 159/93. 1. Right sided MCA stroke: Patient is being admitted in ICU after TNK. Patient on post TNK order set ? PT, OT, speech therapy/swallow evaluation and management, nursing NIH stroke scale, BP and glucose monitoring and control as per stroke protocol. TSH 1.77. A1c pending. MRI brain after 24 hours of TNK and 2D echo with bubble contrast study ordered ? Continue with nifedipine to control blood pressure for the next 24 hours ? Continue with telemetry monitoring ? Monitor BP as per stroke guidelines, post tenecteplase. 06/07: Patient will go for MRI today. Post tenecteplase [address] head does not show acute bleeding or acute finding of ischemic infarction. 2D echo is getting done. 2. Hypertension: Diastolic pressure was high. Diastolic pressure was high. 176/101. 171/110. 1 dose of 20 mg IV labetalol on 06/05 at 19:37 hours as per protocol. BP in ED 148/82-152/76. Heart rate in low 100s. 06/07: BP 133/84 256/94. Sinus rhythm with multiple PVCs. Serum potassium, magnesium and phosphorus level are in normal range. 3. Dyslipidemia: Fasting lipid profile shows triglyceride 212, total cholesterol 256, LDL 166 and HDL 48. 4. Bilateral carotid stenosis/PAD: Right ICA/carotid bulb stenosis 70%. The stenosis on the left estimated closer to 69%. No evidence of LVO. Moderate calcification involving cavernous carotid vessels bilaterally. Carotid duplex ordered for further evaluation. 5. Chronic alcohol use with high risk for acute alcohol withdrawal: CIWA score was 5 yesterday. Today it is 2. Patient on phenobarbital based order set along with other adjunctive medications gabapentin, Bentyl, Vistaril, clonidine, Klonopin as needed for alcohol withdrawal symptom control. Patient is on thiamine and folate acid. CIWA monitor. 6. Chronic smoking with suspected undiagnosed COPD: Patient was smoking a pack per day since age of 18 until he got admitted since age of 18 a pack per day. He has morning chronic cough after waking up and brings up phlegm, clinical feature of COPD/emphysema. Will need outpatient pulmonary follow-up for PFT. DVT: SCDs Clinical Impression(s) from Imaging Studies Brain CT 06/05/24 16:36 IMPRESSION: No acute intracranial abnormality. Chronic involutional and ischemic changes of the brain. Head/Neck CTA 06/05/24 16:37 IMPRESSION: 1. Mild to moderate limitation of the intracranial circulation due to motion artifact. Moderate calcification involving the cavernous carotid vessels bilaterally no christian occlusion however motion does limit evaluation/quantification of stenoses of the cavernous carotid vessels. 2. Limited visualization of mid to distal branches of middle cerebral arteries bilaterally due to technical factors. No proximal MCA occlusion or filling defect. 3. No CTA evidence of LVO given the limitations the current exam. 4. Bilateral cervical carotid/carotid bulb stenosis. Severe stenosis on the RIGHT, greater than 70%. Stenosis on the LEFT estimated at moderate (50-69%), and closer to 69%. 5. No evidence of stenosis or occlusion of the cervical course of the vertebral arteries. Chest X-Ray 06/05/24 17:28 IMPRESSION: No radiographic evidence of acute cardiopulmonary disease. Electronically Signed: Mary Pappas MD at 18:09 EDT Reading Location ID and State: [id number] / Tel , Service support , Charges/Coding Visit Charges Inpatient E&M: 69339 Subs Hosp L3
[2024-06-07] MEDS: Folic Acid 1 MG Tablet PO (09:18)
[2024-06-07] MEDS: Thiamine Hydrochloride 100 MG Tablet PO (09:18)
--- NOTE | 2024-06-07 09:30 | MRI_ITS ---
We are attempting to reach an attending provider to discuss findings. An addendum with communication details will be sent when the communication is complete. EXAM: MR HEAD WITHOUT INTRAVENOUS CONTRAST CLINICAL INDICATION: Acute CVA 24hrs after Tenecteplase administration TECHNIQUE: Multiplanar and multisequence MR images of the brain were obtained without intravenous contrast. COMPARISON: CT head without contrast 06/06/2024. CTA head and neck with contrast 06/05/2024. FINDINGS: BRAIN AND EXTRA-AXIAL SPACES: Small curvilinear and nodular diffusion restrictions in the right precentral gyrus, right middle frontal gyrus, right frontal operculum and right-sided central gyrus. These are also visible on the FLAIR sequence and are consistent with microembolic subacute cortical gyral ischemic infarcts. Normal ventricles and cisterns. No midline shift and no mass effects. SELLA: Unremarkable. Normal sella turcica, pituitary gland, infundibular stalk, optic chiasm and hypothalamus. AUDITORY SYSTEM: Unremarkable. The internal auditory canals are patent. BONES/JOINTS: Unremarkable. No discrete lytic or blastic abnormalities. SINUSES: Unremarkable as visualized. Clear. MASTOID AIR CELLS: Unremarkable as visualized. Clear. ORBITS: Unremarkable as visualized. Both globes, extraocular muscles, optic nerves and retrobulbar fat appear unremarkable. MRI/Brain without Contrast IMPRESSION: Multiple early subacute microembolic ischemic infarcts in the right precentral gyrus, right middle frontal gyrus, right frontal operculum and right subcentral gyrus. In my opinion, these are most likely coming from soft plaques in the >70% stenosis of the right proximal internal carotid artery. Electronically Signed: Bobby Llanos MD at 10:52 EDT ,
--- NOTE | 2024-06-07 12:23 | PN.NEURO_ITS ---
Assessment and Plan: Neuro Assessment/Plan COCO YIN is a 68 M with HTN and tobacco use who presented with sudden onset aphasia and left hemiparesis. CTH neg on arrival. CTA showing bilateral carotid stenosis, greater than 70% on right. Got TNK. Post TNK scan unrevealling. Back to normal pretty much today. MRI brain showed scattered embolic ischemic strokes in the right hemisphere likely secondary to symptomatic right carotid stenosis. Diagnosis: right hemispheric embolic appearing ischemic strokes due to symptomatic right carotid stenosis (etiology large vessel athero) Plan: - Recommend surgical consultation to fix right ICA stenosis - ASA 81mg and high intensity statin - CV risk factor optimization - QUit smoking - Rest of management per surgical team - Follow up with stroke clinic and PCP after dc I personally attended this patient and spent a total time of 30minutes evaluating this patient including clinical assessment, review of chart, medical history imaging, and determining appropriate treatment and workup. Subject: Neurology Subjective COCO YIN is a 68 M with HTN and tobacco use who presented with sudden onset aphasia and left hemiparesis. CTH neg on arrival. CTA showing bilateral carotid stenosis, greater than 70% on right. Got TNK. Post TNK scan unrevealling. Back to normal pretty much today. MRI brain showed scattered embolic ischemic strokes in the right hemisphere likely secondary to symptomatic right carotid stenosis. Back to normal now NIH 1 for mild facial droop at sign off mrs 1 at sign off NIHSS NIHSS Nursing Documentation NIHSS Nursing Documentation: Thrombolytic: Vital Signs & NIHSS Start: 06/05/24 16:45 Text: Assess and document vital signs and NIHSS Status: Complete within 15 minutes of tenecteplase bolus administration Freq: Q4H Protocol: Activity Type Activity Date Activity User E-sign Co-sign Detail Recorded Client Recorded Date Recorded By Document 06/07/24 06:00 KW [id number] 06/07/24 06:41 KW 06/07/24 06:00 Vital Signs [Blood Pressure] -Is the SBP > or = 180 No -Is the DBP > or = 105 No NIH Stroke Scale [NIHSS] A score of 0 is normal or asymptomatic . Total possible score is 42. Inpatient: RN or Physician to activate a stroke alert for onset of new stroke symptoms or with NIHSS increase >/= 3 points. Following change in neurological status, NIHSS will be performed per physician order or more frequently PRN. -1a. Level of Consciousness Alert; keenly responsive -1b. LOC Questions Answers BOTH questions correctly. -1c. LOC Commands Performs both tasks correctly . -2. Best Gaze Normal -3. Visual No visual loss -4. Facial Palsy Minor paralysis (flattened nasolabial fold , asymmetry on smiling) -5a. Left Arm No drift; arm holds 90 (or 45 ) degrees for full 10 seconds -5b. Right Arm No drift; arm holds 90 (or 45 ) degrees for full 10 seconds -6a. Left Leg No drift; leg holds 30-degree position for full 5 seconds -6b. Right Leg No drift; leg holds 30-degree position for full 5 seconds -7. Limb Ataxia Absent -8. Sensory Normal; no sensory loss -9. Best Language No aphasia; normal -10. Dysarthria Mild-to- moderate dysarthria; -11. Extinction and Inattention No abnormality -Total 2 Query Text:A score of 0 is normal or asymptomatic. Total possible score is 42 . ED: Notify Physician for NIHSS increase by > / = 3 points. Inpatient: RN or Physician to activate a stroke alert for NIHSS increase of > / = 3 points. Objective Data Objective Data Vital Signs: Vital Signs Temp Pulse Resp BP Pulse Ox O2 Del Method O2 Flow Rate 97.0 F L 87 20 H 163/84 H 98 Room Air 2 06/07/24 10:45 06/07/24 11:59 06/07/24 10:45 06/07/24 10:45 06/07/24 10:45 06/07/24 10:45 06/05/24 16:43 Oxygen Flow Rate (L/min) 2 Oxygen Delivery Method Room Air Weight: 98.702 kg Body Mass Index (BMI) 26.4 Intake & Output: Intake and Output for Last 24 Hours 06/05/24 06/06/24 06/07/24 23:59 23:59 23:59 Intake Total 290 / 290 1340 / 1340 360 / 360 Output Total 1150 / 1150 1475 / 1925 950 / 950 Balance -860 / -860 -135 / -585 -590 / -590 Lab / Micro Data 06/07/24 04:30 06/07/24 04:30 Labs: Laboratory Results - last 24 hr 06/06/24 21:50: Urine Opiates Screen NEGATIVE, Urine Methadone Screen NEGATIVE, Ur Barbiturates Screen POSITIVE H, Ur Phencyclidine Scrn NEGATIVE, Ur Amphetamines Screen NEGATIVE, MDMA (Ecstasy) Screen NEGATIVE, U Benzodiazepines Scrn NEGATIVE, Urine Cocaine Screen NEGATIVE, U Cannabinoids Screen NEGATIVE, Ur Drug Screen Comment 06/07/24 04:30: WBC 7.9, RBC 4.59 L, Hgb 15.9, Hct 46.4, MCV 101.1 H, MCH 34.6 H , MCHC 34.3, RDW Std Deviation 47.8 H, RDW Coeff of Kassidy 13.0, Plt Count 192, MPV 9.3, Immature Gran % (Auto) 0.500, Neut % (Auto) 71.3 H, Lymph % (Auto) 19.6, [place]ague % (Auto) 6.6, Eos % (Auto) 1.1, Baso % (Auto) 0.9, Absolute Neuts (auto) 5.6, Absolute Lymphs (auto) 1.55, Nucleated RBC % 0, Sodium 138, Potassium 4.0, Chloride 108 H, Carbon Dioxide 24.0, Anion Gap 6, BUN 14, Creatinine 0.87, Estim Creat Clear Calc 102.54, Est GFR (MDRD) Af Amer 113, Est GFR (MDRD) Non-Af 94, BUN/Creatinine Ratio 16.2, Glucose 119 H, Calcium 9.2 Radiography Diagnostic Testing: Radiology Impression Brain CT 06/06/24 17:00 IMPRESSION: There are no acute findings. Chronic involutional changes of the brain. Electronically Signed: Jermaine Bell MD at 17:22 EDT , Brain MRI 06/07/24 09:30 IMPRESSION: Multiple early subacute microembolic ischemic infarcts in the right precentral gyrus, right middle frontal gyrus, right frontal operculum and right subcentral gyrus. In my opinion, these are most likely coming from soft plaques in the >70% stenosis of the right proximal internal carotid artery. Electronically Signed: Bobby Llanos MD at 10:52 EDT , ADDENDUM: 06/07/24 1117 IMPRESSION: Multiple early subacute microembolic ischemic infarcts in the right precentral gyrus, right middle frontal gyrus, right frontal operculum and right subcentral gyrus. In my opinion, these are most likely coming from soft plaques in the >70% stenosis of the right proximal internal carotid artery. N.B. : The above Results were Read Back by Bobby Llanos MD to Danielito Jeronimo MD, and understanding confirmed on 06/07/2024 11:10:36 (ET). Electronically Signed: Bobby Llanos MD at 10:52 EDT , Rhythm Strip Rhythm Strip: Sinus Rhythm Rate: 92 Ectopy: PVC(s) Physical Exam Narrative - AAOx4 - CN grossly intact except for mild left facial droop - Able to sustatin all limbs - Sensation intact
--- NOTE | 2024-06-07 14:27 | CASEMGMT ---
IVANIA MICHAUD Assessment Face to Face with patient for initial transition planning/care coordination assessment. RN KEILY introduced self and role at [facility], pt voices understanding. Pt is A&Ox4 and is resting comfortably in the chair and is calm. Pt at bedside. Care providers, pharmacy, and demographics verified. Admitting dx: CVA LACE Strata: 2 PCP: No PCP. Local provider list given Specialists: Denies Preferred Pharmacy: [facility] Insurance: [facility] A, MMO [facility] Prescription Benefit: Yes LNOK: Stefany Dow (W) Living Arrangements: Pt lives with his . Pt states that they live on the upper level of a two story building with 19 steps to manage to get into the home. ADLs/IADLs: Ind Transportation: Self, DME: [employer]. Denies all other DME uses or needs HHC/SNF: Denies Hx or needs Pt?s goal: Home Plan: Home no needs. Pt was cleared by PT and OT. 6-Click is 24. Pt denies the need for continued therapy and states that he feels safe discharging home with his once he is medically ready. CM to follow in the case that any further needs arise. Javier Dozier RN, CM
[2024-06-08 00:52] VITALS: BMI 26.4
[2024-06-08 01:09] VITALS: BMI 26.5
[2024-06-08 04:00] VITALS: BP 128/91; PULSE 69; RESP 22; TEMP 36.6; O2SAT 96
[2024-06-08 06:00] VITALS: BP 125/83; PULSE 67; RESP 22; TEMP 36.6; O2SAT 96
[2024-06-08 08:00] VITALS: PULSE 77
--- NOTE | 2024-06-08 08:32 | DCINST_ITS ---
Discharge Instructions Diet Discharge Diet: 2000 mg Sodium Diet Follow Up Care Test Results: Test results from this visit will be discussed in further detail at your follow- up appointment, if applicable. Discharge Plan Admission Admit Date/Time: 06/05/24 17:58 Attending Provider: Richard Jeronimo Primary Care Provider: Ricardo Abdi,No Primary Consulting Providers: Sha Brown; Antony Reeves; Piter Kc; Randi Manzano; Sona James; Umm Valdez; Dion Kidd; Gena Ayon; Amish Navarro; Jj Mcdonald; Serge Durán; Heather Dailey; Nick Bright; Phyllis Betancur; Gabriela Osman; Deisy Dong; Ethan Ospina; Francisco Young; Jesus Arroyo; Brunilda Maher; Renaldo Desir; Bry Strange Discharge Orders/Prescriptions Prescriptions: No Action lisinopril 10 mg tablet 10 mg PO DAILY Referrals / Follow Up: Care Physician,No Primary [Primary Care Provider] - NOT,DEFINED [Non-Staff] - Disposition Disposition (needs filled in before D/C Order can be placed): Home, Self Care
--- NOTE | 2024-06-08 08:32 | PCM.DC ---
Discharge Instructions Diet Discharge Diet: 2000 mg Sodium Diet Follow Up Care Test Results: Test results from this visit will be discussed in further detail at your follow-up appointment, if applicable. Discharge Plan Admission Admit Date/Time: 06/05/24 17:58 Attending Provider: Richard Jeronimo Primary Care Provider: Ricardo Abdi,Luiza Primary Consulting Providers: Sha Brown; Antony Reeves; Piter Kc; Randi Manzano; Sona James; Umm Valdez; Dion Kidd; Gena Ayon; Amish Navarro; Jj Mcdonald; Serge Durán; Heather Dailey; Nick Bright; Phyllis Betancur; Gabriela Osman; Deisy Dong; Ethan Ospina; Francisco Young; Jesus Arroyo; Brunilda Maher; Renaldo Desir; Bry Strange Discharge Orders/Prescriptions Prescriptions: New folic acid 1 mg Tablet 1 mg PO BREAKFAST 30 Days Qty: 30 3RF thiamine HCl (vitamin B1) 100 mg Tablet 100 mg PO DAILYCM 30 Days Qty: 30 3RF nicotine 21 mg/24 hr Patch 24 Hour 21 mg transdermal DAILY 28 Days Qty: 28 0RF aspirin [Анна Low Dose Aspirin] 81 mg tablet,delayed release (DR/EC) 81 mg PO DAILY Qty: 30 3RF rosuvastatin 40 mg tablet 40 mg PO DAILY 30 Days Qty: 30 0RF Continued lisinopril 10 mg tablet 10 mg PO DAILY 30 Days Qty: 30 0RF Referrals / Follow Up: Care Physician,No Primary [Primary Care Provider] - Within 2 Weeks NOT,DEFINED [Non-Staff] - Bry Strange MD [Med Staff - Active Staff] - Within 1 Week Melvin Rock MD [Non-Staff] - Within 1 Month Disposition Disposition (needs filled in before D/C Order can be placed): Home, Self Care
--- NOTE | 2024-06-08 08:44 | DS.PCM_ITS ---
Providers Date of Admission: 06/05/24 Date of Discharge: 06/08/24 Primary Care Physician: No Primary Care Phys Consultations 06/05/24 16:45 Consult: Rn Or Lvn / Pulmonary Medicine Routine Consulting Provider: Pulmonary Medicine mary Razo Reason for Consult: stroke for thrombolytic administration EMERGENT Consult: Yes MD Notified: Yes Date Notified: 06/06/24 Time Notified: 07:31 Method of Notification: Text Comments:: Consult may be done in ED or ICU 06/05/24 19:22 Consult: Tele-Neurology Routine Consulting Provider: [facility] Reason for Consult: Acute Stroke Post Tenecteplase administration EMERGENT Consult: No MD Notified: Yes Date Notified: 06/05/24 Time Notified: 18:01 Method of Notification: ED Physician Initiated Nursing Unit Staff Notify [facility] of Tele-Neurology Consult: Yes 06/08/24 07:32 Consult: Vascular Surgery Routine Consulting Provider: Bry Strange Reason for Consult: right ICA stenosis, causing embolic stroke EMERGENT Consult: No MD Notified: Yes Date Notified: 06/08/24 Time Notified: 07:32 Method of Notification: Text Reason For Visit: CVA Diagnosis Discharge Diagnosis (1) Acute ischemic right MCA stroke: Status: Acute Code(s): I63.511 - Cerebral infarction due to unspecified occlusion or stenosis of right middle cerebral artery Plan 68-year-old gentleman was admitted after prehospital stroke alert by EMS for 15 to 20 minutes of sudden onset of left-sided weakness, trouble speaking and frontal headache. His BP was low a week ago and then he stopped taking lisinopril. EMS vitals shows BP 147/95, 159/93. 1. Right sided MCA stroke: Patient is being admitted in ICU after TNK. Patient on post TNK order set ? PT, OT, speech therapy/swallow evaluation and management, nursing NIH stroke scale, BP and glucose monitoring and control as per stroke protocol. TSH 1.77. A1c pending. MRI brain after 24 hours of TNK and 2D echo with bubble contrast study ordered ? Continue with nifedipine to control blood pressure for the next 24 hours ? Continue with telemetry monitoring ? Monitor BP as per stroke guidelines, post tenecteplase. 06/07: Patient will go for MRI today. Post tenecteplase [address] head does not show acute bleeding or acute finding of ischemic infarction. 2D echo is getting done. 06/08: Patient had MRI done which shows multiple early subacute microembolic ischemic infarct in the right's precentral gyrus, right middle frontal gyrus, right frontal operculum and right subpectoral gyrus. The radiologist called me to notify that these are mostly coming from soft plaques in the more than 70% stenosis of right proximal ICA. Patient had an echo which showed EF 65% no PFO/ASD on bubble contrast study. Carotid duplex was done which shows 50 to 69% stenosis in right extracranial internal carotid artery. Mild less than 50% stenosis in the left ICA. Baby aspirin 81 mg started. High intensity statin, rosuvastatin 40 mg daily started. Fasting profile shows LDL 166, total cholesterol 256 and triglyceride 212, HDL 48. TSH normal. A1c 5.7%. Neurologist consult reviewed. Recommended vascular surgery consult and right CEA in 2 weeks as patient is high risk for recurrence of ischemic stroke. Patient was seen by vascular surgeon Dr. Bry Strange. Recommended to add Plavix and prescription sent for 75 mg daily. Rest to continue. Follow-up outpatient for elective right CEA. 2. Hypertension: Diastolic pressure was high. Diastolic pressure was high. 176/101. 171/110. 1 dose of 20 mg IV labetalol on 06/05 at 19:37 hours as per protocol. BP in ED 148/82-152/76. Heart rate in low 100s. 06/07: BP 133/84 256/94. Sinus rhythm with multiple PVCs. Serum potassium, magnesium and phosphorus level are in normal range. 06/08 blood pressure is controlled. Patient is sinus arrhythmia. Heart rate 78 bpm. 3. Dyslipidemia: Fasting lipid profile shows triglyceride 212, total cholesterol 256, LDL 166 and HDL 48. 4. Bilateral carotid stenosis/PAD: Right ICA/carotid bulb stenosis 70%. The stenosis on the left estimated closer to 69%. No evidence of LVO. Moderate calcification involving cavernous carotid vessels bilaterally. Carotid duplex ordered for further evaluation. 5. Chronic alcohol use with high risk for acute alcohol withdrawal: CIWA score was 5 yesterday. Today it is 2. Patient on phenobarbital based order set along with other adjunctive medications gabapentin, Bentyl, Vistaril, clonidine, Klonopin as needed for alcohol withdrawal symptom control. Patient is on thiamine and folate acid. CIWA monitor. 6. Chronic smoking with suspected undiagnosed COPD: Patient was smoking a pack per day since age of 18 until he got admitted since age of 18 a pack per day. He has morning chronic cough after waking up and brings up phlegm, clinical feature of COPD/emphysema. Will need outpatient pulmonary follow-up for PFT. DVT: SCDs Discharge medication reconciliation done. Discharge follow-up instructions completed. Discharge process discussed with the patient and all questions were answered to patient's satisfaction. Follow with PCP in 1 to 2 weeks Total time spent, exact 35 minutes on discharge meds reconciliation, examination, coordination of care with nurses and ancillary staff, review of imaging and blood test and discussion with the patient on follow-up instructions. Clinical Impression(s) from Imaging Studies Brain CT 06/05/24 16:36 IMPRESSION: No acute intracranial abnormality. Chronic involutional and ischemic changes of the brain. Head/Neck CTA 06/05/24 16:37 IMPRESSION: 1. Mild to moderate limitation of the intracranial circulation due to motion artifact. Moderate calcification involving the cavernous carotid vessels bilaterally no christian occlusion however motion does limit evaluation/quantification of stenoses of the cavernous carotid vessels. 2. Limited visualization of mid to distal branches of middle cerebral arteries bilaterally due to technical factors. No proximal MCA occlusion or filling defect. 3. No CTA evidence of LVO given the limitations the current exam. 4. Bilateral cervical carotid/carotid bulb stenosis. Severe stenosis on the RIGHT, greater than 70%. Stenosis on the LEFT estimated at moderate (50-69%), and closer to 69%. 5. No evidence of stenosis or occlusion of the cervical course of the vertebral arteries. Chest X-Ray 06/05/24 17:28 IMPRESSION: No radiographic evidence of acute cardiopulmonary disease. Carotid Duplex 06/05/24 19:22 Interpretation Summary Moderate (50-69%) stenosis right extracranial internal carotid. Mild (<50%) stenosis left extracranial internal carotid. Patent and antegrade vertebrals bilaterally. Echocardiogram 06/06/24 07:19 Interpretation Summary The left ventricular ejection fraction is 65 %. Bubble contrast study is negative for PFO/ASD. Trivial pericardial effusion. Brain CT 06/06/24 17:00 IMPRESSION: There are no acute findings. Chronic involutional changes of the brain. Electronically Signed: Jermaine Bell MD at 17:22 EDT , Brain MRI 06/07/24 09:30 IMPRESSION: Multiple early subacute microembolic ischemic infarcts in the right precentral gyrus, right middle frontal gyrus, right frontal operculum and right subcentral gyrus. In my opinion, these are most likely coming from soft plaques in the >70% stenosis of the right proximal internal carotid artery. Electronically Signed: Bobby Llanos MD at 10:52 EDT , ADDENDUM: 06/07/24 1117 IMPRESSION: Multiple early subacute microembolic ischemic infarcts in the right precentral gyrus, right middle frontal gyrus, right frontal operculum and right subcentral gyrus. In my opinion, these are most likely coming from soft plaques in the >70% stenosis of the right proximal internal carotid artery. N.B. : The above Results were Read Back by Bobby Llanos MD to Danielito Jeronimo MD, and understanding confirmed on 06/07/2024 11:10:36 (ET). Electronically Signed: Bobby Llanos MD at 10:52 EDT , Medications at Discharge Home Medications aspirin 81 mg tablet,delayed release (Анна Low Dose Aspirin) 81 mg PO DAILY #30 tabs 06/08/24 clopidogrel 75 mg tablet (Plavix) 75 mg PO DAILY 60 days #60 tabs 06/08/24 folic acid 1 mg tablet 1 mg PO BREAKFAST 1 month #30 tabs 06/08/24 lisinopril 10 mg tablet 10 mg PO DAILY 30 days #30 tabs 06/08/24 nicotine 21 mg/24 hr daily transdermal patch 21 mg transdermal DAILY 28 days #28 ea 06/08/24 rosuvastatin 40 mg tablet 40 mg PO DAILY 1 month #30 tabs 06/08/24 thiamine HCl (vitamin B1) 100 mg tablet 100 mg PO DAILYCM 30 days #30 tabs 06/08/24 Physical Exam Narrative Seen and examined. No acute event. Patient was not restarted on phenobarbitone. Did not go on alcohol withdrawal. CIWA score was low. 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 Patient is states that his speech is not 100% still has problem in vocalization. Physical exam General: Alert, Oriented x3, Cooperative HEENT: Atraumatic, PERRLA, EOMI, Normocephalic Oral: No Gingival or Mucosal Lesions/ Ulcerations Neck: Supple, No JVD, Negative Carotid Bruits Chest wall/Lungs: Air entry diminished in bilateral lung bases. Mild bilateral expiratory rhonchi. Cardiovascular: sinus rhythm with multiple PVCs. Normal S1, Normal S2, No M/G/R Abdomen: Bowel Sounds Present, Soft, Non Tender, Non-Distended : No dysuria. No renal angle tenderness. No suprapubic tenderness. Extremities: No edema, Capillary Refill Less than 3 Seconds Skin: No rashes, No breakdown Musculoskeletal: No Tenderness to Palpation of Joints or Extremities. ROM full and intact. Neurological: Facial paralysis/asymmetry. NIH stroke scale 1. No aphasia or dysarthria noticed. DTR 2+/4. No acute focal neurological deficit. Per long-term charting, NIH stroke scale 2, minor facial paralysis and mild/moderate dysarthria. Psych/Mental Status: Normal Affect, Appropriate. Weight / BMI Weight Weight: 218 lb 0.595 oz Body Mass Index (BMI) 26.5 ABG / Lab / Microbiology Data 06/07/24 04:30 06/07/24 04:30 Radiography Diagnostic Testing: Radiology Impression Carotid Duplex 06/05/24 19:22 Interpretation Summary Moderate (50-69%) stenosis right extracranial internal carotid. Mild (<50%) stenosis left extracranial internal carotid. Patent and antegrade vertebrals bilaterally. Ordering Physician: Sha Brown Performed By: Marti Phan RVT Echocardiogram 06/06/24 07:19 Interpretation Summary The left ventricular ejection fraction is 65 %. Bubble contrast study is negative for PFO/ASD. Trivial pericardial effusion. Ordering Physician: Richard Jeronimo Performed By: Lauri Robert RCS Brain MRI 06/07/24 09:30 IMPRESSION: Multiple early subacute microembolic ischemic infarcts in the right precentral gyrus, right middle frontal gyrus, right frontal operculum and right subcentral gyrus. In my opinion, these are most likely coming from soft plaques in the >70% stenosis of the right proximal internal carotid artery. Electronically Signed: Bobby Llanos MD at 10:52 EDT , ADDENDUM: 06/07/24 1117 IMPRESSION: Multiple early subacute microembolic ischemic infarcts in the right precentral gyrus, right middle frontal gyrus, right frontal operculum and right subcentral gyrus. In my opinion, these are most likely coming from soft plaques in the >70% stenosis of the right proximal internal carotid artery. N.B. : The above Results were Read Back by Bobby Llanos MD to Danielito Jeronimo MD, and understanding confirmed on 06/07/2024 11:10:36 (ET). Electronically Signed: Bobby Llanos MD at 10:52 EDT , D/C Instructions Discharge Diet: 2000 mg Sodium Diet Meaningful Use Info Meaningful Use Meaningful Use Diagnoses (Choose all that apply): None applicable and Ischemic CVA CVA Therapy Assessed for PT,OT and/or ST?: Yes Ischemic Stroke Antithrombotic order at d/c?: Yes Dx of Atrial fib/flutter?: No Anticoagulant at discharge?: Yes Statin Dosing Therapy Reference: STATIN DOSE THERAPY REFERENCE: * Patients > 75 years receive moderate or high dose statin therapy. * Patients 75 years or YOUNGER should receive HIGH intensity statin dose unless contraindicated. You will be required to document reason for non-treatment if statin daily dose does not meet guidelines. HIGH DOSE STATIN THERAPY DAILY Atorvastatin > than or = to 40 mg Rosuvastatin > than or = to 20 mg Amlodipine + Atorvastatin > than or = to 2.5/40 mg Ezetimibe + Simvastatin 10/80 mg Simvastatin 80mg Statins at discharge?: Yes If patient is 75 or younger, pt will be discharged on HIGH intensity statin.: Y es Primary Dx Acute Ischemic CVA?: Yes Discharge Plan Admission Admit Date/Time: 06/05/24 17:58 Attending Provider: Richard Jeronimo Primary Care Provider: Care Physician,No Primary Consulting Providers: Sha Brown; Antony Reeves; Piter Kc; Randi Manzano; Sona James; Umm Valdez; Dion Kidd; Gena Ayon; Amish Navarro; Jj Mcdonald; Serge Durán; Heather Dailey; Nick Bright; Phyllis Betancur; Gabriela Osman; Deisy Dong; Ethan Ospina; Francisco Young; Jesus Arroyo; Brunilda Maher; Renaldo Desir; Bry Strange Discharge Orders/Prescriptions Prescriptions: New folic acid 1 mg Tablet 1 mg PO BREAKFAST 30 Days Qty: 30 3RF thiamine HCl (vitamin B1) 100 mg Tablet 100 mg PO DAILYCM 30 Days Qty: 30 3RF nicotine 21 mg/24 hr Patch 24 Hour 21 mg transdermal DAILY 28 Days Qty: 28 0RF aspirin [Анна Low Dose Aspirin] 81 mg tablet,delayed release (DR/EC) 81 mg PO DAILY Qty: 30 3RF rosuvastatin 40 mg tablet 40 mg PO DAILY 30 Days Qty: 30 0RF Continued lisinopril 10 mg tablet 10 mg PO DAILY 30 Days Qty: 30 0RF clopidogrel [Plavix] 75 mg tablet 75 mg PO DAILY 60 Days Qty: 60 0RF Referrals / Follow Up: Bry Strange MD [Med Staff - Active Staff] - Within 1 Week Melvin Rock MD [Non-Staff] - Within 1 Month Care Physician,No Primary [Primary Care Provider] - Within 2 Weeks NOT,DEFINED [Non-Staff] - Disposition Disposition (needs filled in before D/C Order can be placed): Home, Self Care Charges/Coding Visit Charges Inpatient E&M: 30265 Disch Hosp >30min
[2024-06-08] MEDS: Aspirin E.C. 81 MG Tablet PO (08:45)
[2024-06-08] MEDS: Thiamine Hydrochloride 100 MG Tablet PO (08:45)
[2024-06-08] MEDS: Folic Acid 1 MG Tablet PO (08:45)
[2024-06-08] MEDS: Pantoprazole Sodium 40 MG Tablet PO (08:45)
[2024-06-08 08:50] VITALS: BP 141/76; PULSE 86; RESP 19; TEMP 36; O2SAT 95
[2024-06-08 11:08] VITALS: BP 137/91; PULSE 82; RESP 20; O2SAT 97
--- NOTE | 2024-06-08 12:05 | CON.PCM.SX_ITS ---
Assessment & Plan Assessment/Plan (1) Carotid stenosis, symptomatic, with infarction: PLAN: -CTA images reviewed, 85% stenosis right ICA by EST, 67% by NASCET -MRI with multiple small scattered infarcts -now on ASA, statin; will add plavix -ok to DC -plan right CEA as outpatient HPI Consult Data Date of Consult: 06/08/24 HPI Narrative HPI Narrative: COCO YIN, is a 68 M who presents with acute onset left arm numbness, weakness on Jun 05. He also noted facial droop. There was some improvement in symptoms during transport to the hospital though not complete resolution. He received lytic therapy and was admitted to the ICU. His up extremity symptoms resolved, he still has mild facial droop. No prior similar events. Was not on an antiplatelet or anticoagulation medication at the time. [facility] Medical History Bone tumor Hypercholesteremia HTN (hypertension) Home Medications ?Medication ?Instructions ?Recorded ?Last Taken ?Type aspirin 81 mg tablet,delayed 81 mg PO DAILY #30 tabs 06/08/24 Unknown Rx release (Анна Low Dose Aspirin) clopidogrel 75 mg tablet (Plavix) 75 mg PO DAILY #60 tabs 06/08/24 Unknown Rx folic acid 1 mg tablet 1 mg PO BREAKFAST 1 month #30 tabs 06/08/24 Unknown Rx lisinopril 10 mg tablet 10 mg PO DAILY 30 days #30 tabs 06/08/24 Unknown Rx nicotine 21 mg/24 hr daily 21 mg transdermal DAILY 28 days 06/08/24 Unknown Rx transdermal patch #28 ea rosuvastatin 40 mg tablet 40 mg PO DAILY 1 month #30 tabs 06/08/24 Unknown Rx thiamine HCl (vitamin B1) 100 mg 100 mg PO DAILYCM 30 days #30 tabs 06/08/24 Unknown Rx tablet Allergy/AdvReac Type Severity Reaction Status Date / Time No Known Allergies Allergy Verified 06/05/24 16:44 Family History Other Diabetes Heart disease Surgical History History of bone graft Social History Smoking Status: Current every day smoker tobacco type: cigarettes ROS Constitutional Constitutional: Denies chills, fever(s), frequent falls, lethargy or weakness Eyes Eyes: Denies blind spots, change in vision or loss of vision ENT HEENT: Denies bleeding gums, hoarseness or sore throat Cardiovascular Cardiovascular: Denies abdominal pain, bluish discoloration of hand/feet, chest pain with activity, claudication, cold extremities, cyanosis, dyspnea on exertion, erythema on extremities, irregular heart rhythm, leg edema, leg ulcers, numbness in extremities or weakness in extremities Respiratory/Chest Respiratory/Chest: Denies cough, excessive phlegm production, shortness of breath at rest, shortness of breath with exertion or wheezing Gastrointestinal Gastrointestinal: Denies anorexia, change in stool character, constipation, diarrhea, melena or rectal bleeding Genitourinary Genitourinary: Denies dysuria or hematuria Musculoskeletal Musculoskeletal: Denies abnormal gait Integumentary Integumentary: Reports other Details: ; Denies erythema, non-healing lesions or wounds Neurologic Neurologic: Denies abnormal speech, focal weakness, headache(s), loss of vision, numbness, paresthesias or sensory deficit Hematologic/Lymphatic Hematologic/Lymphatic: Denies easy bleeding, easy bruising or lymphadenopathy Physical Exam Const alert, oriented x3, no apparent distress and healthy appearing General Appearance: cooperative; Negative for combative or lethargic Orientation / Consciousness: awake Exam Limitations: no limitations HEENT Head and Scalp: normocephalic and atraumatic Eyes EOMs intact bilaterally General Eye: normal appearance of both eyes Neck full ROM, no lymphadenopathy and thyroid normal General: trachea midline; Negative for lymphadenopathy or tenderness Thyroid: thyroid normal Resp normal respiratory effort and no use of accessory muscles Effort and Inspection: Negative for labored, stridor or audible wheezes Cardio regular rate and regular rhythm Peripheral Pulses: brachial pulses present and radial pulses present Back/Spine Cervical Spine: cervical ROM normal Extremity full ROM, normal capillary refill and no clubbing, cyanosis or edema Skin no rashes or lesions noted and no wounds Neuro oriented x3, CN's II-XII intact bilaterally, no focal motor deficits and no sensory deficits noted Psych thought process normal, cooperative, affect normal, speech normal and activity/motor behavior normal Lab / Micro Data 06/07/24 04:30 06/07/24 04:30 Rhythm Strip Rhythm Strip: Sinus Rhythm Rate: 92 Ectopy: PVC(s) Imaging Radiology Impression Carotid Duplex 06/05/24 19:22 Interpretation Summary Moderate (50-69%) stenosis right extracranial internal carotid. Mild (<50%) stenosis left extracranial internal carotid. Patent and antegrade vertebrals bilaterally. Ordering Physician: Sha Brown Performed By: Marti Phan RVT Echocardiogram 06/06/24 07:19 Interpretation Summary The left ventricular ejection fraction is 65 %. Bubble contrast study is negative for PFO/ASD. Trivial pericardial effusion. Ordering Physician: Richard Jeronimo Performed By: Lauri Robert RCS Charges/Coding Visit Charges Inpatient E&M: 61732 Init Hosp L3
== END 2024-06-08 11:20 | disposition home or self-care (01) | DRG 63 ==
LOC: ED 17:59 → ICU 18:08
PROVIDERS: Admitting Provider Family Medicine; Emergency Provider Emergency Medicine; Visit Provider Internal Medicine
DX: I63.511 Cerebral infarction due to unspecified occlusion or stenosis of right middle cerebral artery (principal); E78.00 Pure hypercholesterolemia, unspecified; I73.9 Peripheral vascular disease, unspecified; I10 Essential (primary) hypertension; I65.23 Occlusion and stenosis of bilateral carotid arteries; F17.210 Nicotine dependence, cigarettes, uncomplicated; F10.90 Alcohol use, unspecified, uncomplicated; R29.705 NIHSS score 5; Z79.899 Other long term (current) drug therapy
CPT/HCPCS: 51702; 70450; 70496; 70498; 70551; 71045; 80048; 80061; 80307; 83036; 83735; 84100; 84443; 84484; 85025; 85610; 85730; 92522; 92610; 93005; 93306; 93880; 97161; 97166; 97802; 99285; J3101; J7030; J7050; Q9957; Q9967; A4216; C8929; J2405

== ENCOUNTER 2024-07-06 11:05 | Inpatient (IN) | payer MEDICARE, OTHER, SELFPAY ==
[2024-07-06] VITALS (17 sets, daily range): BP systolic 105–136; BP diastolic 55–87; PULSE 62–84; RESP 14–20; TEMP 36.1–36.6; O2SAT 94–100; BMI 26.1; BMI 26.4
--- OUTSIDE RECORDS SUMMARY | 2024-07-06 05:13 | XMS RPT_ITS | CCD ---
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 this document may materially change the coding, format and clinical context of patient data. In addition, data may be omitted in some cases. CLINICAL DECISIONS SHOULD BE BASED ON THE PRIMARY CLINICAL RECORDS. [employer] provides no warranty or guarantee of the accuracy or completeness of information in this document.
[2024-07-06] MEDS: Lactated Ringers 1,000 ML 15 ML IV ×2 (06:33→09:22)
--- NOTE | 2024-07-06 06:54 | PCM.PRE.AN2 ---
ASA Classification* ASA Classification ASA Classification: 3 Assessment & Plan Anesthesia* Anesthesia Assessment Anesthesia Assessment: Discussed sedation and/or anesthesia options, risks, benefits, and alternatives with patient/parents/legal guardian/POA. Questions invited. The patient/parents/legal guardian/POA seems to understand and agrees to proceed with anesthesia plan. Reviewed the physical assessment, medical history, allergy history and patient home medications list prior to surgery/procedure/anesthetic and documented any changes. Performed airway and anesthesia risk assessments. Anesthesia Type Anesthesia Type: General (see written pre anesthesia record for full assessment) Anesthesia Focused Assessment* Temperature: 97.2 F Pulse Rate: 78 Blood Pressure: 136/87 Respiratory Rate: 18 Pulse Ox: 98 Airway Assessment Mouth opens: >3 cm Mallampati Score: III Focused Labs Anesthesia Preop lab: CBC WBC 7.9 K/mm3 (4.4-11.0) 06/07/24 04:30 RBC 4.59 M/mm3 (4.6-6.2) L 06/07/24 04:30 Hgb 15.9 g/dL (13.0-16.5) 06/07/24 04:30 Hct 46.4 % (40-54) 06/07/24 04:30 Plt Count 192 K/mm3 (150-450) 06/07/24 04:30 CHEMISTRY Potassium 4.0 mmol/L (3.5-5.1) 06/07/24 04:30 Sodium 138 mmol/L (136-145) 06/07/24 04:30 Magnesium 2.0 mg/dL (1.6-2.6) 06/06/24 03:57 Phosphorus 3.4 mg/dL (2.5-4.9) 06/06/24 03:57 BUN 14 mg/dL (7-18) 06/07/24 04:30 Creatinine 0.87 mg/dL (0.70-1.30) 06/07/24 04:30 Glucose 119 mg/dL (74-106) H 06/07/24 04:30 TSH 1.770 uIU/mL (0.358-3.740) 06/06/24 03:57 COAG PT 13.1 SECONDS (11.7-14.9) 06/05/24 16:37 Pre-Assessment Diagnosis/Proposed Procedure Planned Operative Procedure(s): right Carotid Endarterectomy Anesthesia History Anesthesia History - family support specialist: Anesthesia History - family support specialist Hx Hospitalization No 06/24/24 11:13 Any Problems With Anesthesia No 06/24/24 11:13 Cholinesterase deficiency No 06/24/24 11:13 You/Your Family Experience No 06/24/24 11:13 fever (hyperthermia) with Relationship Recent Exposure to Contagious No 07/06/24 06:01 Disease Does patient have nerve No 06/24/24 11:13 stimulator Patient instructed to have device shut off --Does patient have Pacemaker No 07/06/24 06:03 or ICD? When Was Last Pacemaker Check QUESTION #4 FULL TEXT: You/Your Family Experience fever (hyperthermia) with Anesthesia Last Oral Intake Last Oral intake: Last Oral Intake NPO since 19:00 07/06/24 06:03 Meds taken in AM with sips of Yes 07/06/24 06:03 water? Meds patient instructed to take am of surgery PONV PONV - family support specialist: PONV - family support specialist Female No 06/24/24 11:13 HX of Motion Sickness No 06/24/24 11:13 HX of N/V After Surgery No 06/24/24 11:13 Non-Smoker Yes 06/24/24 11:13 Duration of Surgery greater Yes 06/24/24 11:13 than 60 minutes Number of Risk Factors 2 06/24/24 11:13 PONV Score Moderate Risk 06/24/24 11:13 Height & Weight Height & Weight: Anesthesia: Height & Weight Height 6 ft 4 in 07/06/24 06:03 Weight: 97.432 kg 07/06/24 06:03 Body Mass Index (BMI) 26.1 07/06/24 06:03 Respiratory Assessment Respiratory Assessment - family support specialist: Respiratory Tract Infection Hx - family support specialist Hx Respiratory Tract Infection No 06/24/24 11:13 STOP Sleep Apnea STOP Sleep Apnea - family support specialist: STOP Sleep Apnea - family support specialist Hx Hypertension Yes: CONTROLLED ON MED 06/24/24 11:13 Hx Sleep Apnea No 06/24/24 11:13 CPAP BIPAP Do you snore loudly (louder No 06/24/24 11:13 than talking or can be heard Do you often feel tired/ No 06/24/24 11:13 fatigued/ sleepy during daytime? Has anyone observed you stop No 06/24/24 11:13 breathing during sleep? STOP Results Negative 06/24/24 11:13 QUESTION #5 FULL TEXT : Do you snore loudly (louder than talking or can be heard through closed doors)? 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 Specify any problems Hx of Preganancy in last 3 N/A 06/24/24 11:13 Months Nurse Filling Out Transfusion VCHRISTIN 06/24/24 11:13 & Questions: Date: 06/24/24 06/24/24 11:13 Time: 11:14 06/24/24 11:13 Patient unable to answer at this time (ie. confused, unrespo /Reproduction History /Reproductive History - family support specialist: /Reproductive Hx- family support specialist Hx Now Gestational Age (in weeks): EDC: Hx Hx Para Hx Section SAB Active Medications Active Medications: Current Medications Generic Name Dose Route Start Last Admin Trade Name Freq PRN Reason Stop Dose Admin Cefazolin Sodium 2 gm/ N/A 20 mls @ 400 mls/hr 07/06/24 07:30 IV 07/06/24 07:32 PREOP ONE Lactated Ringer's 1,000 mls @ 15 mls/hr 07/06/24 06:30 07/06/24 06:33 IV 07/11/24 19:49 15 mls/hr .Q48H KAREN Administration Protocol PFSH Medical History Wears dentures Wears glasses High cholesterol Back pain Stroke/cerebrovascular accident Gastric reflux Smoker Numbness History of echocardiogram Acute ischemic right MCA stroke Bone tumor Hypercholesteremia HTN (hypertension) Home Medications ?Medication ?Instructions ?Recorded ?Last Taken ?Type aspirin 81 mg tablet,delayed 81 mg PO DAILY BLOOD THINNER #30 06/08/24 07/06/24 03:30 Rx release (Анна Low Dose Aspirin) tabs clopidogrel 75 mg tablet (Plavix) 75 mg PO DAILY BLOOD THINNER 60 06/08/24 07/06/24 03:30 Rx days #60 tabs folic acid 1 mg tablet 1 mg PO BREAKFAST SUPPLEMENT 1 06/08/24 Unknown Rx month #30 tabs lisinopril 10 mg tablet 10 mg PO DAILY BP 30 days #30 tabs 06/08/24 07/06/24 03:30 Rx nicotine 21 mg/24 hr daily 21 mg transdermal DAILY STOP 06/08/24 07/05/24 Rx transdermal patch SMOKING 28 days #28 ea rosuvastatin 40 mg tablet 40 mg PO DAILY CHOLESTEROL 1 month 06/08/24 07/05/24 20:00 Rx #30 tabs thiamine HCl (vitamin B1) 100 mg 100 mg PO DAILYCM SUPPLEMENT 30 06/08/24 Unknown Rx tablet days #30 tabs Allergy/AdvReac Type Severity Reaction Status Date / Time bupropion (From Wellbutrin) Allergy Intermediate Rash Verified 07/06/24 05:56 Family History Other Diabetes Heart disease Surgical History History of bone graft Social History Smoking Status: Former smoker Review of Systems (Anesthesia) ROS Narrative System reviewed and no additional complaints, except as documented.
--- NOTE | 2024-07-06 07:30 | PLAQ_PTH ---
PATHOLOGY RESULTS PATIENT: COCO YIN LOC: [facility] U#:[id number] AGE/SX: 68/M ROOM: [place] [address] RE07/06/[address]: Dr. Bry Strange MD : 1955 BED: 1 DIS: 07/07/2024 SPEC #: [id number] RECD: 07/06/24 17:51 STATUS: ADDIE RERosaline #: [id number] MOHINI: 07/06/24 07:[address]: Bry Strange DEPT: SURGICAL PATHOLOGY RECD BY: Johana Gao ENTERED: 07/07/24 08:12 SP TYPE: PLAQUE OTHR DR: ALLIE Hawkins Tissues: PLAQUE Procedures: Decalcification bone/plaque Surgery Specimen Level III HEADER OPERATION: Right carotid endarterectomy PRE-OP DIAGNOSIS: Carotid stenosis, symptomatic, with infarction TISSUE SUBMITTED: Plaque, right carotid MICROSCOPIC DIAGNOSIS Plaque, right carotid, endarterectomy: Atherosclerotic tissue with focal moderate to marked calcifications (plaque). NAGI 07/09/2024 GROSS DESCRIPTION Received in fixative is one container labeled with the patient's name and designated Plaque, right carotid. The specimen consists of a previously opened tubular piece of srinivasan-light yellow indurated tissue measuring 2.0cm in length and 1.2cm in diameter. Also present in the container is a detached piece of srinivasan indurated tissue measuring 2.0 x 1.0 x 0.2cm. The specimen cuts with gritty sensation. The entire specimen is submitted in one cassette after decalcification. 07/07/2024 TC:5 [facility]:[id number]
--- NOTE | 2024-07-06 08:00 | HP.PCM_ITS ---
History and Physical Allergies bupropion (From Wellbutrin) Allergy (Intermediate, Verified 06/23/24 13:23) Rash Medications ?Medication ?Instructions ?Recorded ?Confirmed ?Type aspirin 81 mg tablet,delayed 81 mg PO DAILY #30 tabs 06/08/24 06/23/24 Rx release (Анна Low Dose Aspirin) clopidogrel 75 mg tablet (Plavix) 75 mg PO DAILY 60 days #60 tabs 06/08/24 06/23/24 Rx folic acid 1 mg tablet 1 mg PO BREAKFAST 1 month #30 tabs 06/08/24 06/23/24 Rx lisinopril 10 mg tablet 10 mg PO DAILY 30 days #30 tabs 06/08/24 06/23/24 Rx nicotine 21 mg/24 hr daily 21 mg transdermal DAILY 28 days 06/08/24 06/23/24 Rx transdermal patch #28 ea rosuvastatin 40 mg tablet 40 mg PO DAILY 1 month #30 tabs 06/08/24 06/23/24 Rx thiamine HCl (vitamin B1) 100 mg 100 mg PO DAILYCM 30 days #30 tabs 06/08/24 06/23/24 Rx tablet Have you fallen in the past year?: Yes PFSH Medical History Acute ischemic right MCA stroke Bone tumor Hypercholesteremia HTN (hypertension) Surgical History History of bone graft Family History Other Diabetes Heart disease Social History Smoking Status: Current every day smoker tobacco type: cigarettes HPI HPI HPI: COCO YIN, is a 68 M who presents to the office today for follow up of symptomatic right ICA stenosis. He has new left foot numbness but no weakness, right lower leg/foot feels cool subjectively, and has new whirring noises in both ears. No focal weakness/vision loss/speech difficulty. He is tolerating the asa/plavix/statin. ROS General General: No weight change, appetite, fatigue, colon cancer, breast cancer or weakness HEENT HEENT: No difficulty swallowing, eye injury, eye surgery, swollen glands or hoarseness Endo Endocrine: No thyroid disease, diabetes mellitus, thyroid cancer, Hair loss, heat intolerance or cold intolerance Skin Skin: No rash or changing moles Musc Musculoskeletal: Yes back problems and joint pain; No arthritis, rheumatoid arthritis or gout Cardio Cardiovascular: Yes high blood pressure; No murmur, pacemaker, heart disease, atrial fibrillation, heart attack, heart stent, palpitations, shortness of breat with exertion or chest pain Psych Psychiatric: No depression, anxiety or hearing voices Resp Respiratory: No shortness of breath, No sleep apnea, No cough, No COPD, No asthma, No emphysema and No wheezing Gastro Gastrointestinal: No abdominal pain, No nausea or vomiting, No diarrhea, Yes constipation, No blood in stool, Yes acid reflux, No hemorrhoids, No ulcers, No gallbladder problem and No black,tarry stools Thomas Hematologic: Yes blood thinners, No blood disorders, No bleeding, No anemia and No blood clots Neuro Neurologic: No system reviewed and no additional complaints, except as documented, No as per HPI, No abnormal gait, No abnormal hearing, No abnormal movements, No abnormal speech, No behavioral changes, No burning sensations, No confusion, No convulsions, Yes disequilibrium, Yes dizziness, No localized weakness, No frequent falls, Yes headache(s), Yes lack of coordination, No loss of vision, No memory loss, Yes numbness, No other visual disturbances, No radicular pain, No restless legs, No sensory deficit, No syncope, Yes tingling, No tremor(s), No weakness and No other Exam Const General: cooperative, healthy appearing, comfortable, no acute distress and well developed Nutritional Appearance: well nourished Orientation: alert, awake and oriented x3 [facility] Head: normocephalic and atraumatic Ears: hearing grossly normal bilaterally Nose: external nose normal Eyes General: appearance normal, both eyes and all related structures EOM: EOM intact bilaterally Neck Neck: normal visual inspection, full ROM and trachea midline Resp Effort & Inspection: normal respiratory effort, able to speak in complete sentences, symmetric chest movement, no audible wheezes, not labored, no stridor and no use of accessory muscles Cardio Rate: regular rate Rhythm: regular rhythm Pulses: brachial pulses present and radial pulses present Skin General: no rashes or lesions noted and no erythema Wounds: no wounds Neuro Cranial Nerves: CN's II-XI intact bilaterally and EOM intact bilaterally Speech: speech normal Gait: normal gait Psych Appearance: grossly normal and well kempt Mental Status: mental status grossly normal Mood: congruent mood Speech and Movement: speech and movement normal Thought Content: normal Judgment: judgment good Coding Level of Care Code Off vis,est,level 2 Diagnoses Carotid stenosis, symptomatic, with infarction I63.239 Assessment and Plan Assessment and Plan (1) Carotid stenosis, symptomatic, with infarction: Status: Chronic Plan: -right CEA
[2024-07-06] MEDS: Cefazolin 2 GM in Syringe IV (08:15)
[2024-07-06] MEDS: Bupivacaine Mpf 0.5% 30 ML VIAL (11:15)
--- NOTE | 2024-07-06 11:15 | OP.PCM_ITS ---
Report of Operation Date of Procedure: 07/06/24 Pre-Operative Diagnosis: Right carotid stenosis Post-Operative Diagnosis: same Surgery/Procedure Performed:: right carotid endarterectomy Surgeon: Bry Strange bending press operator: Breanne Ernst Type of Anesthesia: General Drains: 15 Fr MICHAEL Estimated Blood Loss (mL): 50
--- NOTE | 2024-07-06 11:15 | PCM.OPRPT ---
Report of Operation Date of Procedure: 07/06/24 Pre-Operative Diagnosis: Right carotid stenosis Post-Operative Diagnosis: same Surgery/Procedure Performed:: right carotid endarterectomy Surgeon: Bry Strange mgmt consultant: Breanne Ernst Type of Anesthesia: General Drains: 15 Fr MICHAEL Estimated Blood Loss (mL): 50 Description of Procedure: HPI: Patient is a 68-year-old male with severe right carotid artery stenosis and recent cerebrovascular accident. He presents now for carotid endarterectomy for stroke risk reduction. Description of procedure: Upon obtaining form consent and verification correct patient procedure site patient was taken to the operating where he was placed under general anesthesia. He was then positioned prepped and draped in usual sterile fashion time was performed. Oblique incision was made along the anterior border the sternocleidomastoid and Bovie electrocautery was dissect down to the subcutaneous tissue to level the platysma. The platysma was then divided and self-retaining retractors were put in position and further dissection carried down to the sternocleidomastoid. This was then freed along its anterior border lung to be retracted posterior laterally exposing the carotid sheath. Sharp dissection was then used to dissect free the jugular vein along its anterior border and the facial vein was identified, ligated with silk ties and divided. The jugular vein was then directed laterally exposing the carotid vessels and sharp dissection was used dissect free the proximal common carotid artery with care taken to identify and protect the vagus nerve. A right angle was used to place vessel loop proximally and we carried our dissection distally toward the internal carotid artery. An aberrant nerve was noted to run along the anterior surface of the carotid bifurcation and it was unclear which nerve this was as the vagus was in normal anatomic position. The nerve ran parallel to the vagus superiorly and appeared to join as the nerve exited the surgical field. As the identity of the nerve was unclear we felt it needed to be preserved so this was then mobilized and retracted anteriorly while the vagus nerve was mobilized and displaced posteriorly. Further sharp dissection was carried onto the internal carotid artery distally beyond the area of palpable and visible plaque. A right angle was used to place a vessel loop and the patient was heparinized allowed to circulate for 3 minutes with subsequent heparin dosing based on ACT results. Finally sharp dissection used to dissect free the external carotid artery and a right angle used to place a vessel loop. Vessels then occluded first the internal followed by the common and the external. A longitudinal arteriotomy was then created with an 11 blade on the common carotid artery extended with Lott scissors onto the internal carotid artery beyond the plaque. A 10 [place] shunt was then placed first distally and allowed to backbleed before placing proximally in the common carotid artery. The shunt was interrogated with Doppler and found to be patent with low resistance signal. We then performed her endarterectomy with eversion endarterectomy of the external carotid artery and satisfactory endpoint onto the internal carotid artery. The distal endpoint was intact with 7-0 Prolene interrupted sutures in the lumen flushed with heparinized saline to clear of any potential debris. A bovine pericardial patch was then secured into position with a 6-0 Prolene in a running fashion. Prior to completing the suture line the shunt was removed and the vessel was backbled. After completing the suture line the clamp was removed from the internal carotid artery along with DrCarey Backbleed into the bifurcation and then it was reoccluded as origin. Clamps were then removed from the external and common carotid artery allowing 10 heartbeats of antegrade flow to flush into the external carotid artery before reestablishing atrial flow into the internal carotid artery. After clamps removed satisfactory hemostasis noted the vessels were interrogated with Doppler. The internal carotid artery was patent with low resistance signal in the external carotid was patent with normal signal. Heparin was then reversed with protamine and the incision inspected for hemostasis. Floseal topical hemostatic was then applied and a 15 Finnish channel MICHAEL was placed via separate stab incision. The incision was then closed with 2-0 Vicryl, 3-0 Vicryl, 4 Monocryl and Dermabond for the skin. At the conclusion the case the patient was awake anesthesia moving all extremities to command cranial nerves intact. The patient was then taken to the recovery room with anticipated mission to the intensive care unit for hemodynamic and neurologic monitoring. The PUBLICATION DESIGNER assisted throughout the entirety of the procedure from patient positioning to dissection and control of the vessels, endarterectomy and patch angioplasty, and wound closure.
--- NOTE | 2024-07-06 11:48 | PCM.POST.ANE ---
Anesthesia: Postop Eval I Current Vital Signs Temperature: 97 F Pulse Rate: 84 Blood Pressure: 136/61 (a-line (MAP 86) cuff pressure 126/73 (90)) Respiratory Rate: 20 Pulse Ox: 97 Oxygen Delivery Method: Simple Mask Oxygen Flow Rate (L/min): 6 Assessment Airway patent: Yes Spontaneous unlabored respirations: Yes Mental status: Awake and Calm nausea: No Vomiting: No Anesthesia Complication: No Fluid Hydration Crystalloid volume administer (ml): 1,800 Total IV fluid infused: 1,800 Progress Note Anesthesia document: Postop Eval 1 completed: Yes
[2024-07-06] MEDS: oxyCODONE 5 MG Tablet PO ×2 (13:46→20:40)
[2024-07-06] MEDS: Acetaminophen 500 MG Tablet 1000 MG PO ×2 (13:46→20:40)
[2024-07-06] MEDS: Cefazolin 1 GM/50 ML BAG IV ×2 (15:21→23:33)
--- OUTSIDE RECORDS SUMMARY | 2024-07-06 16:08 | XMS RPT_ITS | CCD ---
Author Organization [facility] Care Team Providers Care Supervisor Pleating Name Role Phone Jose Keith Unavailable Unavailable Jose Keith Unavailable Unavailable Jose Keith Unavailable Unavailable JOSE GORDON DO Admitting Unavailable JOSE GORDON DO Attending Unavailable JOSE GORDON DO Primary Care Unavailable NO, DOCTOR ON Referring Unavailable NO, DOCTOR ON Consulting Unavailable Allergies Allergy Classification Reported Allergen(s) Allergy Type Date of Onset Reaction(s) Facility (1 source) buPROPion; Translations: [BUPROPION HCL] Drug Allergy 10-03-2010 [facility] Repository (1 source) buPROPion Drug Allergy [facility] Repository Results Test Name Value Interpretation Reference Range Facility EMERGENCY REPORTon 0 EMERGENCY REPORT [facility] EMERGENCY ROOM REPORT NAME ACCOUNT SEX AGE ADMIT DISCHARGE PT MED. RECORD# NUMBER DATE DATE TYPE MELVIN YIN [id number] M 64 03/25/20 03/25/20 3 [id number] ROOM: ER DATE OF : 1955 DICTATING [...] Jose Gordon DO 03/25/20 19:36 JOB #: [id number] Transcribed By: mavis 03/26/20 10:52 Electronically signed by: E-Sign: Dr. Jose Gordon D.O. Page 1 of 2 MELVIN YIN Emergency Room Report MELVIN YIN : 1955 03/27/20 04:49 Page 2 of 2 MELVIN YIN Emergency Room Report Normal [facility] EMERGENCY REPORT [facility] EMERGENCY ROOM REPORT NAME ACCOUNT SEX AGE ADMIT DISCHARGE PT MED. RECORD# NUMBER DATE DATE TYPE MELVIN YIN [id number] M 64 03/25/20 03/25/20 3 [id number] ROOM: ER DATE OF : 1955 DICTATING [...] pounds. Family physician is Dr. Keith in [place]. The patient is alert and oriented x3. [...] motor or sensory deficits are noted. Hand rn research are strong and symmetric. SKIN: Skin is warm and dry. No diaphoresis or rash. NEURO: The patient is alert and oriented x4. No motor or sensory deficits noted. Speech is normal. DIAGNOSTIC DATA: EKG was done at 1710 hours. It shows a normal sinus rhythm at a rate of 78 beats per minute. No acute ST segment changes were noted. [place] is approximately 60 degrees. EMERGENCY DEPARTMENT COURSE [...] Jose Gordon DO 03/25/20 18:08 JOB #: [id number] Transcribed By: marleen 03/26/20 11:09 Electronically signed by: E-Sign: Dr. Jose Gordon D.O. 03/27/20 04:49 Page 2 of 2 MELVIN YIN Emergency Room Report Normal [facility] BNP (B-TYPE NATRIURETIC PEPT MAURA)on 03-25-2020 Natriuretic peptide B (Bld) [Mass/Vol] 22 pg/mL Normal 1 - 100 [facility] Comment on above: Performed By: #### 2 10679 #### [facility],[address] [place] [address] 26030 CBC + DIFFon 03-25-2020 Basophils (Bld) [#/Vol] 0.10 x10EE3/UL Normal 0.00 - 0.10 [facility] Comment on above: Performed By: #### 2 65274 #### [facility],[address] [place] [address] 67738 Basophils/100 WBC (Bld) 0.5 % Normal 0.0 - 2.0 [facility] Comment on above: Performed By: #### 2 77374 #### [facility],[address] [place] [address] CBC + DIFF Normal [facility] Comment on above: Result Comment: CBC- COMPLETE BLOOD COUNT Performed By: #### 2 30650 #### [facility],[address] [place] [address] Eosinophils (Bld) [#/Vol] 0.00 x10EE3/UL Normal 0.00 - 0.50 [facility] Comment on above: Performed By: #### 2 83623 #### [facility],[address] [place] [address] Eosinophils/100 WBC (Bld) 0.4 % Normal 0.0 - 7.0 [facility] Comment on above: Performed By: #### 2 31707 #### [facility],[address] [place] [address] Erythrocyte distribution width (RBC) [Ratio] 12.5 % Normal 12.0 - 15.6 [facility] Comment on above: Performed By: #### 2 27788 #### [facility],[address] [place] [address] Hematocrit (Bld) [Volume fraction] 45.2 % Normal 40.0 - 52.0 [facility] Comment on above: Performed By: #### 2 24119 #### [facility],[address] [place], [place] [address] Hemoglobin (Bld) [Mass/Vol] 16.3 g/dL Normal 13.0 - 17.5 [facility] Comment on above: Performed By: #### 2 45218 #### [facility],[address] [place] [address] Lymphocytes (Bld) [#/Vol] 0.90 x10EE3/UL Normal 0.80 - 2.80 [facility] Comment on above: Performed By: #### 2 06383 #### [facility],[address] [place] [address] 88719 Lymphocytes/100 WBC (Bld) 8.2 % Low 20.0 - 45.0 [facility] Comment on above: Performed By: #### 2 68702 #### [facility],[address] [place] [address] 42305 MANUAL DIFF N/A Normal [facility] Comment on above: Performed By: #### 2 63077 #### [facility],[address] [place], [place] [address] MCH (RBC) [Entitic mass] 36 pg High 27 - 33 [facility] Comment on above: Performed By: #### 2 32145 #### [facility],[address] [place] [address] MCHC (RBC) [Mass/Vol] 36 X10 3 Normal 32 - 36 [facility] Comment on above: Performed By: #### 2 58968 #### [facility],[address] [place], [place] [address] MCV (RBC) [Entitic vol] 99 fL High 81 - 98 [facility] Comment on above: Performed By: #### 2 48179 #### [facility],[address] [place], [place] [address] Monocytes (Bld) [#/Vol] 0.60 x10EE3/UL Normal 0.20 - 1.00 [facility] Comment on above: Performed By: #### 2 03877 #### [facility],[address] [place] [address] 88748 MONOS % 5.5 % Normal 0.0 - 10.0 [facility] Comment on above: Performed By: #### 2 34508 #### [facility],[address] [place] [address] 26367 Morphology Stanley (Bld) [Interp] N/A Normal [facility] Comment on above: Performed By: #### 2 19443 #### [facility],[address] [place] [address] 50241 Neutrophils (Bld) [#/Vol] 9.40 x10EE3/UL High 1.50 - 7.10 [facility] Comment on above: Performed By: #### 2 62274 #### [facility],[address] [place] [address] 97512 Neutrophils/100 WBC (Bld) 85.4 % High 46.0 - 76.0 [facility] Comment on above: Performed By: #### 2 70948 #### [facility],[address] [place] [address] 09709 Platelet mean volume (Bld) [Entitic vol] 7.6 fL Normal 6.4 - 10.5 [facility] Comment on above: Result Comment: AUTO MATED DIFFERENTIAL Performed By: #### 2 51998 #### [address] [address] Platelets (Bld) [#/Vol] 229 x10EE3/UL Normal 150 - 450 [facility] Comment on above: Performed By: #### 2 55407 #### [facility],[address] [place] [address] 43569 RBC (Bld) [#/Vol] 4.55 x 10EE6/UL Normal 4.50 - 6.00 [facility] Comment on above: Performed By: #### 2 95959 #### [facility],[address] [place] [address] 22050 WBC (Bld) [#/Vol] 11.1 x 10EE3/UL High 4.5 - 10.8 [facility] Comment on above: Performed By: #### 2 18055 #### [facility],[address] [place] [address] 56521 CHEST 1 VIEWon 03-25-2020 CHEST 1 VIEW [place] [address] Patient: MELVIN YIN Phone#: : 1955 Age: 64 Gender: M Pt. Type: ER Account: [id number] Location: 052 Ordering: JOSE GORDON Exam Date: 03/25/2020/17:31 Family Phys: Charge Code: [id number] Physician: Jackson Order #: [id number] DLP Dose#: PROCEDURE: X-RAY CHEST 1 VIEW [...] Cruz MD on 03/25/2020 at 19:58 Normal [facility] CMP with eGFRon 03-25-2020 Age - Reported [address] [facility] Comment on above: Performed By: #### 2 42460 #### [address] [address] Albumin [Mass/Vol] 3.9 g/dL Normal 3.4 - 4.8 [facility] Comment on above: Performed By: #### 2 02647 #### [facility],[address] [place] [address] 43661 Albumin/Globulin [Mass ratio] 1.7 {ratio} High 0.9 - 1.6 [facility] Comment on above: Performed By: #### 2 36049 #### [address] [address] ALK PHOS 71 U/L Normal 38 - 126 [facility] Comment on above: Performed By: #### 2 46459 #### [facility],[address] [place] [address] 84154 ALT/SGPT 14 U/L Normal 10 - 40 [facility] Comment on above: Performed By: #### 2 33312 #### [facility],[address] [place] [address] 46390 Anion gap [Moles/Vol] 10 mmol/L Normal 10 - 20 [facility] Comment on above: Performed By: #### 2 67205 #### [facility],[address] [place] [address] 50892 AST/SGOT 14 U/L Normal 13 - 39 [facility] Comment on above: Performed By: #### 2 19810 #### [facility],[address] [place] [address] 09239 B/C RATIO 16 ratio Normal 0 - 30 [facility] Comment on above: Performed By: #### 2 88739 #### [facility],[address] [place] [address] 82026 Bilirubin [Mass/Vol] 0.8 mg/dL Normal 0.0 - 1.5 [facility] Comment on above: Performed By: #### 2 99451 #### [facility],[address] [place] [address] 06676 Calcium [Mass/Vol] 9.0 mg/dL Normal 8.6 - 10.2 [facility] Comment on above: Performed By: #### 2 66322 #### [facility],[address] [place] [address] 99414 Chloride [Moles/Vol] 106 mmol/L Normal 98 - 107 [facility] Comment on above: Performed By: #### 2 85783 #### [facility],[address] [place] [address] 33418 CO2 [Moles/Vol] 23.8 mmol/L Normal 21.0 - 31.0 [facility] Comment on above: Performed By: #### 2 36787 #### [facility],[address] [place] [address] 28998 Creatinine [Mass/Vol] 0.9 mg/dL Normal 0.7 - 1.3 [facility] Comment on above: Performed By: #### 2 55303 #### [facility],[address] [place] [address] 40938 GFR/1.73 sq M predicted among non-blacks MDRD (S/P/Bld) [Vol rate/Area] Normal [facility] Comment on above: Result Comment: COMP REHENSIVE METABOLIC PANEL Performed By: #### 2 87781 #### [facility],[address] [place] [address] 06679 GFR/1.73 sq M predicted among non-blacks MDRD (S/P/Bld) [Vol rate/Area] mL/min/{1.73_m2} Normal 60 - 999 [facility] Comment on above: Result Comment: ACCO RDING TO THE NATIONAL KIDNEY DISEASE EDUCATION PROGRAM(NKDE), A NORMAL eGFR IS A VALUE GREATER THAN OR EQUAL TO 60 ML/MIN/1.73 SQ METERS. CHRONIC KIDNEY DISEASE: <60mL/MIN/1.73 SQ METERS KIDNEY FAILURE: <15mL/MIN/1.73 SQ METERS THIS TEST SHOULD ONLY BE USED FOR PATIENTS 18 YEARS OF AGE AND OLDER. Performed By: #### 2 20782 #### [facility],[address] [place] [address] 26063 Globulin (S) [Mass/Vol] 2.3 g/dL Normal 1.5 - 3.8 [facility] Comment on above: Performed By: #### 2 12254 #### [facility],[address] [place] [address] 95564 Glucose [Mass/Vol] 121 mg/dL High 74 - 106 [facility] Comment on above: Performed By: #### 2 14931 #### [facility],[address] [place] [address] 51374 Potassium [Moles/Vol] 4.4 mmol/L Normal 3.5 - 5.1 [facility] Comment on above: Performed By: #### 2 28636 #### [facility],[address] [place] [address] 02021 Protein [Mass/Vol] 6.2 g/dL Low 6.4 - 8.3 [facility] Comment on above: Performed By: #### 2 86297 #### [facility],[address] [place], [place] [address] Sodium [Moles/Vol] 135 mmol/L Low 136 - 145 [facility] Comment on above: Performed By: #### 2 15484 #### [facility],[address] [place] [address] 58928 Urea nitrogen [Mass/Vol] 14 mg/dL Normal 6 - 20 [facility] Comment on above: Performed By: #### 2 34483 #### [facility],[address] [place], [place] [address] CT BRAIN W/O CONTRASTon 07-0 CT BRAIN W/O CONTRAST [place] [address] Patient: MLEVIN YIN Phone#: : 1955 Age: 64 Gender: M Pt. Type: ER Account: [id number] Location: [facility] Ordering: JOSE GORDON Exam Date: 03/25/2020/17:30 Family Phys: Charge Code: [id number] Physician: Jackson Order #: [id number] DLP Dose#: [id number] PROCEDURE: CT BRAIN WITHOUT [...] Cruz MD on 03/25/2020 at 20:11 Normal [facility] D-DIMER, QUANTITATIVEon 07-0 D-DIMER QUANT 191 ng/ml Normal 0 - 230 [facility] Comment on above: Performed By: #### 2 09021 #### [place] [address] D-DIMER, QUANTITATIVE Normal [facility] Comment on above: Result Comment: LASHON T D-DIMER Performed By: #### 2 58210 #### [facility],[address] [place], [place] [address] TROPONINon 03-25-2020 Troponin I.cardiac [Mass/Vol] ng/mL Normal 0.00 - 0.05 [facility] Comment on above: Result Comment: Elev ated [...] as heterophile antibodies). Performed By: #### 2 26898 #### [address] [address] URINALYSIS WITH MICROSCOPYon 03-25-2020 Amorphous 2+ Normal [facility] Comment on above: Performed By: #### 2 85982 #### [address] [address] Bacteria LM.HPF (Urine sed) [#/Area] NONE Normal [facility] Comment on above: Performed By: #### 2 01446 #### [facility],[address] [place] [address] 35122 Bilirubin [Mass/Vol] Negative Normal NORMAL: NEGATIVE [facility] Comment on above: Performed By: #### 2 54255 #### [facility],[address] [place] [address] 97943 Blood Negative Normal NORMAL: NEGATIVE [facility] Comment on above: Performed By: #### 2 52979 #### [facility],[address] [place] [address] 93477 Casts LM.LPF (Urine sed) [#/Area] NONE Normal [facility] Comment on above: Performed By: #### 2 19079 #### [facility],[address] [place], [place] [address] Clarity (U) clear Normal NORMAL: CLEAR [facility] Comment on above: Performed By: #### 2 24782 #### [facility],[address] [place] [address] 15240 Color (U) p.yel Normal NORMAL: YELLOW [facility] Comment on above: Performed By: #### 2 50132 #### [facility],[address] [place] [address] 13399 Crystals LM Nom (Urine sed) NONE Normal [facility] Comment on above: Performed By: #### 2 87210 #### [facility],[address] [place] [address] 81486 Epi Cells NONE Normal [facility] Comment on above: Performed By: #### 2 69411 #### [facility],[address] [place] [address] 26310 Glucose [Mass/Vol] NORM Normal NORMAL: NORMAL [facility] Comment on above: Performed By: #### 2 50349 #### [facility],[address] [place] [address] 89377 Ketone Negative Normal NORMAL: NEGATIVE [facility] Comment on above: Performed By: #### 2 38785 #### [facility],[address] [place] [address] 78708 Mucous TRACE Normal [facility] Comment on above: Performed By: #### 2 40336 #### [facility],[address] [place] [address] 33497 Nitrite Ql (U) Negative Normal NORMAL: NEGATIVE [facility] Comment on above: Performed By: #### 2 49359 #### [facility],[address] [place] [address] 18098 pH (Bld) 7 Normal NORMAL: 5.0-8.0 [facility] Comment on above: Performed By: #### 2 92686 #### [facility],[address] [place] [address] 03810 Protein (U) [Mass/Vol] Negative Normal NORMAL: NEGATIVE [facility] Comment on above: Performed By: #### 2 59424 #### [facility],[address] [place] [address] 74878 Rbc NONE Normal 0-3 / hpf [facility] Comment on above: Performed By: #### 2 48985 #### [facility],[address] [place] [address] 16512 Sp [place] 1.010 Normal NORMAL: 1.010-1.030 [facility] Comment on above: Performed By: #### 2 35253 #### [facility],[address] [place] [address] 93739 Specimen type Nom (Spec) UNSPECIFIED Normal [facility] Comment on above: Performed By: #### 2 97577 #### [facility],[address] [place] [address] 72069 URINALYSIS WITH MICROSCOPY Normal [facility] Comment on above: Result Comment: URIN ALYSIS Performed By: #### 2 94925 #### [facility],[address] [place] [address] 36413 Urobilinog NORM Normal NORMAL: NORMAL [facility] Comment on above: Performed By: #### 2 94307 #### [facility],[address] [place] [address] 74582 Wbc 1-5 Normal 0-5 / hpf [facility] Comment on above: Performed By: #### 2 12835 #### [facility],[address] [place] [address] 01716 WBC (Bld) [#/Vol] 25 Abnormal NORMAL: NEGATIVE [facility] Comment on above: Result Comment: URIN E MICROSCOPIC Performed By: #### 2 86772 #### [facility],[address] [place] [address] 62213 Yeast LM Ql (Urine sed) NONE Normal [facility] Comment on above: Performed By: #### 2 44065 #### [facility],[address] [place] [address] 05696 ERRONEOUSENCon 10-13-2018 ERRONEOUSENC [id number] Melvin Yin 1955 M * Clinical document posted in Error * Encounter Type Conversion History User Instant Changed From Changed To RAFAEL MATIASu Oct 15, 2018 11* Hospital En* Erroneous* Normal [facility] XR Hip 2-3 Views Lefton - XR [...] process. FINAL REPORT Dictated: 06/20/2017 3:37 pm jJ Butt DO JSigned (Electronic Signature): 06/20/2017 3:37 pmSigned by: Jj Butt DO Technologist: DEBBIE [facility] Encounters Encounter Date Encounter Type Care Provider Facility Start: 03-25-2020 End: 03-25-2020 Emergency department patient visit [facility] Start: 10-13-2018 End: 10-13-2018 Emergency department patient visit [facility] Start: 06-20-2017 End: 06-21-2017 Ambulatory Jose Keith Facility:[facility] Payers Date Payer Category Payer Unknown [...] section and content) DATE CREATED AUTHOR 03/18/2018 [facility] DATE CREATED AUTHOR AUTHOR'S ORGANIZ ATION 10/25/2018 [facility] DATE CREATED AUTHOR AUTHOR'S ORGANIZ ATION 04/14/2020 [facility] FOR RECORDS PERTAINING TO PATIENTS WHO ARE [...] BE BASED ON THE PRIMARY CLINICAL RECORDS. [employer] provides no warranty or guarantee of the accuracy or completeness of information in this document.
--- OUTSIDE RECORDS SUMMARY | 2024-07-06 16:10 | XMS RPT_ITS | CCD ---
Author Organization [facility] Care Team Providers Care Fraud Investigator Name Role Phone Jose Keith Unavailable Unavailable [...] [BUPROPION HCL] Drug Allergy 10-03-[address] [facility] Repository (1 source) buPROPion Drug Allergy [facility] Repository Results Test Name Value Interpretation Reference Range Facility EMERGENCY REPORTon 0 EMERGENCY REPORT [facility] EMERGENCY ROOM REPORT NAME ACCOUNT SEX AGE ADMIT DISCHARGE PT MED. RECORD# NUMBER DATE DATE TYPE MELVIN YIN [id number] M 64 03/25/20 03/25/20 3 [id number] ROOM: ER DATE OF : 1955 DICTATING [...] Jose Gordon DO 03/25/20 19:36 JOB #: [id number] Transcribed By: mavis 03/26/20 10:52 Electronically signed by: E-Sign: Dr. Jose Gordon D.O. Page 1 of 2 MELVIN YIN Emergency Room Report MELVIN YIN : 1955 03/27/20 04:49 Page 2 of 2 MELVIN YIN Emergency Room Report Normal [facility] EMERGENCY REPORT [facility] EMERGENCY ROOM REPORT NAME ACCOUNT SEX AGE ADMIT DISCHARGE PT MED. RECORD# NUMBER DATE DATE TYPE MELVIN YIN [id number] M [id number] 03/25/20 03/25/20 3 [id number] ROOM: ER DATE OF : 1955 DICTATING [...] pounds. Family physician is Dr. Keith in [place]. The patient is alert and oriented x3. [...] motor or sensory deficits are noted. Hand hide grader are strong and symmetric. SKIN: Skin is warm and dry. No diaphoresis or rash. NEURO: The patient is alert and oriented x4. No motor or sensory deficits noted. Speech is normal. DIAGNOSTIC DATA: EKG was done at 1710 hours. It shows a normal sinus rhythm at a rate of 78 beats per minute. No acute ST segment changes were noted. Rice is approximately 60 degrees. EMERGENCY DEPARTMENT COURSE [...] Jose Gordon DO 03/25/20 18:08 JOB #: [id number] Transcribed By: marleen 03/26/20 11:09 Electronically signed by: E-Sign: Dr. Jose Gordon D.O. 03/27/20 04:49 Page 2 of 2 MELVIN YIN Emergency Room Report Normal [facility] BNP (B-TYPE NATRIURETIC PEPT MAURA)on 03-25-2020 Natriuretic peptide B (Bld) [Mass/Vol] 22 pg/mL Normal 1 - 100 [facility] Comment on above: Performed By: #### 2 [id number] #### [facility],[address] [place] [address] 92177 CBC + DIFFon 03-25-2020 Basophils (Bld) [#/Vol] 0.10 x10EE3/UL Normal 0.00 - 0.10 [facility] Comment on above: Performed By: #### 2 17200 #### [facility],[address] [place] [address] 08044 Basophils/100 WBC (Bld) 0.5 % Normal 0.0 - 2.0 [facility] Comment on above: Performed By: #### 2 26295 #### [facility],[address] [place] [address] CBC + DIFF Normal [facility] Comment on above: Result Comment: CBC- COMPLETE BLOOD COUNT Performed By: #### 2 92802 #### [facility],[address] [place] [address] Eosinophils (Bld) [#/Vol] 0.00 x10EE3/UL Normal 0.00 - 0.50 [facility] Comment on above: Performed By: #### 2 25074 #### [facility],[address] [place] [address] Eosinophils/100 WBC (Bld) 0.4 % Normal 0.0 - 7.0 [facility] Comment on above: Performed By: #### 2 76214 #### [facility],[address] [place] [address] Erythrocyte distribution width (RBC) [Ratio] 12.5 % Normal 12.0 - 15.6 [facility] Comment on above: Performed By: #### 2 31076 #### [facility],[address] [place] [address] Hematocrit (Bld) [Volume fraction] 45.2 % Normal 40.0 - 52.0 [facility] Comment on above: Performed By: #### 2 35736 #### [facility],[address] [place], [place] [phone] Hemoglobin (Bld) [Mass/Vol] 16.3 g/dL Normal 13.0 - 17.5 [facility] Comment on above: Performed By: #### 2 24738 #### [facility],[address] [place] [address] Lymphocytes (Bld) [#/Vol] 0.90 x10EE3/UL Normal 0.80 - 2.80 [facility] Comment on above: Performed By: #### 2 99574 #### [facility],[address] [place] [address] 01894 Lymphocytes/100 WBC (Bld) 8.2 % Low 20.0 - 45.0 [facility] Comment on above: Performed By: #### 2 75490 #### [facility],[address] [place] [address] 92496 MANUAL DIFF N/A Normal [facility] Comment on above: Performed By: #### 2 86009 #### [facility],[address] [place], [place] [phone] MCH (RBC) [Entitic mass] 36 pg High 27 - 33 [facility] Comment on above: Performed By: #### 2 28009 #### [facility],[address] [place] [address] MCHC (RBC) [Mass/Vol] 36 X10 3 Normal 32 - 36 [facility] Comment on above: Performed By: #### 2 65221 #### [facility],[address] [place], [place] [phone] MCV (RBC) [Entitic vol] 99 fL High 81 - 98 [facility] Comment on above: Performed By: #### 2 85271 #### [facility],[address] [place], [place] [address] Monocytes (Bld) [#/Vol] 0.60 x10EE3/UL Normal 0.20 - 1.00 [facility] Comment on above: Performed By: #### 2 53039 #### [facility],[address] [place] [address] 34394 MONOS % 5.5 % Normal 0.0 - 10.0 [facility] Comment on above: Performed By: #### 2 75544 #### [facility],[address] [place] [address] 36634 Morphology Stanley (Bld) [Interp] N/A Normal [facility] Comment on above: Performed By: #### 2 76357 #### [facility],[address] [place] [address] 93441 Neutrophils (Bld) [#/Vol] 9.40 x10EE3/UL High 1.50 - 7.10 [facility] Comment on above: Performed By: #### 2 51252 #### [facility],[address] [place] [address] 27466 Neutrophils/100 WBC (Bld) 85.4 % High 46.0 - 76.0 [facility] Comment on above: Performed By: #### 2 92575 #### [facility],[address] [place] [address] 90472 Platelet mean volume (Bld) [Entitic vol] 7.6 fL Normal 6.4 - 10.5 [facility] Comment on above: Result Comment: AUTO MATED DIFFERENTIAL Performed By: #### 2 81471 #### [address] [address] Platelets (Bld) [#/Vol] 229 x10EE3/UL Normal 150 - 450 [facility] Comment on above: Performed By: #### 2 78673 #### [facility],[address] [place] [address] 19778 RBC (Bld) [#/Vol] 4.55 x 10EE6/UL Normal 4.50 - 6.00 [facility] Comment on above: Performed By: #### 2 71861 #### [facility],[address] [place] [address] 15323 WBC (Bld) [#/Vol] 11.1 x 10EE3/UL High 4.5 - 10.8 [facility] Comment on above: Performed By: #### 2 73441 #### [facility],[address] [place] [address] 95870 CHEST 1 VIEWon 03-25-2020 CHEST 1 VIEW [place] [address] Patient: MELVIN YIN Phone#: : 1955 Age: 64 Gender: M Pt. Type: ER Account: [id number] Location: 052 Ordering: JOSE GORDON Exam Date: 03/25/2020/17:31 Family Phys: Charge Code: [id number] Physician: Millard Order #: [id number] DLP Dose#: PROCEDURE: X-RAY CHEST 1 VIEW [...] Cruz MD on 03/25/2020 at 19:58 Normal [facility] CMP with eGFRon 03-25-2020 Age - Reported 64 years Normal [facility] Comment on above: Performed By: #### 2 60893 #### [address] [address] Albumin [Mass/Vol] 3.9 g/dL Normal 3.4 - 4.8 [facility] Comment on above: Performed By: #### 2 98330 #### [facility],[address] [place] [address] 67479 Albumin/Globulin [Mass ratio] 1.7 {ratio} High 0.9 - 1.6 [facility] Comment on above: Performed By: #### 2 92411 #### [address] [address] ALK PHOS 71 U/L Normal 38 - 126 [facility] Comment on above: Performed By: #### 2 05506 #### [facility],[address] [place] [address] 03935 ALT/SGPT 14 U/L Normal 10 - 40 [facility] Comment on above: Performed By: #### 2 98032 #### [facility],[address] [place] [address] 91382 Anion gap [Moles/Vol] 10 mmol/L Normal 10 - 20 [facility] Comment on above: Performed By: #### 2 12915 #### [facility],[address] [place] [address] 31527 AST/SGOT 14 U/L Normal 13 - 39 [facility] Comment on above: Performed By: #### 2 69320 #### [facility],[address] [place] [address] 50712 B/C RATIO 16 ratio Normal 0 - 30 [facility] Comment on above: Performed By: #### 2 68395 #### [facility],[address] [place] [address] 59047 Bilirubin [Mass/Vol] 0.8 mg/dL Normal 0.0 - 1.5 [facility] Comment on above: Performed By: #### 2 87956 #### [facility],[address] [place] [address] 45216 Calcium [Mass/Vol] 9.0 mg/dL Normal 8.6 - 10.2 [facility] Comment on above: Performed By: #### 2 18232 #### [facility],[address] [place] [address] 61554 Chloride [Moles/Vol] 106 mmol/L Normal 98 - 107 [facility] Comment on above: Performed By: #### 2 39120 #### [facility],[address] [place] [address] 72864 CO2 [Moles/Vol] 23.8 mmol/L Normal 21.0 - 31.0 [facility] Comment on above: Performed By: #### 2 37994 #### [facility],[address] [place] [address] 98479 Creatinine [Mass/Vol] 0.9 mg/dL Normal 0.7 - 1.3 [facility] Comment on above: Performed By: #### 2 63901 #### [facility],[address] [place] [address] 31264 GFR/1.73 sq M predicted among non-blacks MDRD (S/P/Bld) [Vol rate/Area] Normal [facility] Comment on above: Result Comment: COMP REHENSIVE METABOLIC PANEL Performed By: #### 2 92756 #### [facility],[address] [place] [address] 43359 GFR/1.73 sq M predicted among non-blacks MDRD (S/P/Bld) [Vol rate/Area] mL/min/{1.73_m2} Normal 60 - 999 [facility] Comment on above: Result Comment: ACCO RDING TO THE NATIONAL KIDNEY DISEASE EDUCATION PROGRAM(NKDE), A NORMAL eGFR IS A VALUE GREATER THAN OR EQUAL TO 60 ML/MIN/1.73 SQ METERS. CHRONIC KIDNEY DISEASE: <60mL/MIN/1.73 SQ METERS KIDNEY FAILURE: <15mL/MIN/1.73 SQ METERS THIS TEST SHOULD ONLY BE USED FOR PATIENTS 18 YEARS OF AGE AND OLDER. Performed By: #### 2 99694 #### [facility],[address] [place] [address] 91527 Globulin (S) [Mass/Vol] 2.3 g/dL Normal 1.5 - 3.8 [facility] Comment on above: Performed By: #### 2 90908 #### [facility],[address] [place] [address] 75958 Glucose [Mass/Vol] 121 mg/dL High 74 - 106 [facility] Comment on above: Performed By: #### 2 66475 #### [facility],[address] [place] [address] 13364 Potassium [Moles/Vol] 4.4 mmol/L Normal 3.5 - 5.1 [facility] Comment on above: Performed By: #### 2 68532 #### [facility],[address] [place] [address] 01302 Protein [Mass/Vol] 6.2 g/dL Low 6.4 - 8.3 [facility] Comment on above: Performed By: #### 2 09560 #### [facility],[address] [place], [place] [address] Sodium [Moles/Vol] 135 mmol/L Low 136 - 145 [facility] Comment on above: Performed By: #### 2 48832 #### [facility],[address] [place] [address] 89236 Urea nitrogen [Mass/Vol] 14 mg/dL Normal 6 - 20 [facility] Comment on above: Performed By: #### 2 67169 #### [facility],[address] [place], [place] [address] CT BRAIN W/O CONTRASTon 07-0 CT BRAIN W/O CONTRAST [place] [address] Patient: MELVIN YIN Phone#: : 1955 Age: 64 Gender: M Pt. Type: ER Account: [id number] Location: [facility] Ordering: JOSE GORDON Exam Date: 03/25/2020/17:30 Family Phys: Charge Code: [id number] Physician: Millard Order #: [id number] DLP Dose#: 52.30 PROCEDURE: CT BRAIN WITHOUT [...] Cruz MD on 03/25/2020 at 20:11 Normal [facility] D-DIMER, QUANTITATIVEon 07-0 D-DIMER QUANT 191 ng/ml Normal 0 - 230 [facility] Comment on above: Performed By: #### 2 50130 #### [place] [address] D-DIMER, QUANTITATIVE Normal [facility] Comment on above: Result Comment: LASHON T D-DIMER Performed By: #### 2 91626 #### [facility],[address] [place], [place] [address] TROPONINon 03-25-2020 Troponin I.cardiac [Mass/Vol] ng/mL Normal 0.00 - 0.05 [facility] Comment on above: Result Comment: Elev ated [...] as heterophile antibodies). Performed By: #### 2 39309 #### [address] [address] URINALYSIS WITH MICROSCOPYon 03-25-2020 Amorphous 2+ Normal [facility] Comment on above: Performed By: #### 2 62143 #### [address] [address] Bacteria LM.HPF (Urine sed) [#/Area] NONE Normal [facility] Comment on above: Performed By: #### 2 04087 #### [facility],[address] [place] [address] 61661 Bilirubin [Mass/Vol] Negative Normal NORMAL: NEGATIVE [facility] Comment on above: Performed By: #### 2 69738 #### [facility],[address] [place] [address] 31231 Blood Negative Normal NORMAL: NEGATIVE [facility] Comment on above: Performed By: #### 2 66084 #### [facility],[address] [place] [address] 77711 Casts LM.LPF (Urine sed) [#/Area] NONE Normal [facility] Comment on above: Performed By: #### 2 48451 #### [facility],[address] [place], [place] [address] Clarity (U) clear Normal NORMAL: CLEAR [facility] Comment on above: Performed By: #### 2 93231 #### [facility],[address] [place] [address] 16205 Color (U) p.yel Normal NORMAL: YELLOW [facility] Comment on above: Performed By: #### 2 32036 #### [facility],[address] [place] [address] 36347 Crystals LM Nom (Urine sed) NONE Normal [facility] Comment on above: Performed By: #### 2 36018 #### [facility],[address] [place] [address] 63854 Epi Cells NONE Normal [facility] Comment on above: Performed By: #### 2 93441 #### [facility],[address] [place] [address] 64875 Glucose [Mass/Vol] NORM Normal NORMAL: NORMAL [facility] Comment on above: Performed By: #### 2 59507 #### [facility],[address] [place] [address] 00746 Ketone Negative Normal NORMAL: NEGATIVE [facility] Comment on above: Performed By: #### 2 11944 #### [facility],[address] [place] [address] 91839 Mucous TRACE Normal [facility] Comment on above: Performed By: #### 2 90078 #### [facility],[address] [place] [address] 30679 Nitrite Ql (U) Negative Normal NORMAL: NEGATIVE [facility] Comment on above: Performed By: #### 2 72948 #### [facility],[address] [place] [address] 78325 pH (Bld) 7 Normal NORMAL: 5.0-8.0 [facility] Comment on above: Performed By: #### 2 87831 #### [facility],[address] [place] [address] 03820 Protein (U) [Mass/Vol] Negative Normal NORMAL: NEGATIVE [facility] Comment on above: Performed By: #### 2 75263 #### [facility],[address] [place] [address] 57123 Rbc NONE Normal 0-3 / hpf [facility] Comment on above: Performed By: #### 2 17707 #### [facility],[address] [place] [address] 45108 Sp [place] 1.010 Normal NORMAL: 1.010-1.030 [facility] Comment on above: Performed By: #### 2 12358 #### [facility],[address] [place] [address] 56395 Specimen type Nom (Spec) UNSPECIFIED Normal [facility] Comment on above: Performed By: #### 2 30628 #### [facility],[address] [place] [address] 56459 URINALYSIS WITH MICROSCOPY Normal [facility] Comment on above: Result Comment: URIN ALYSIS Performed By: #### 2 12568 #### [facility],[address] [place] [address] 74432 Urobilinog NORM Normal NORMAL: NORMAL [facility] Comment on above: Performed By: #### 2 20678 #### [facility],[address] [place] [address] 28325 Wbc 1-5 Normal 0-5 / hpf [facility] Comment on above: Performed By: #### 2 91398 #### [facility],[address] [place] [address] 46975 WBC (Bld) [#/Vol] 25 Abnormal NORMAL: NEGATIVE [facility] Comment on above: Result Comment: URIN E MICROSCOPIC Performed By: #### 2 28783 #### [facility],[address] [place] [address] 90391 Yeast LM Ql (Urine sed) NONE Normal [facility] Comment on above: Performed By: #### 2 93857 #### [facility],[address] [place] [address] 31755 ERRONEOUSENCon 10-13-2018 ERRONEOUSENC [id number] Melvin Yin 1955 M * Clinical document posted in Error * Encounter Type Conversion History User Instant Changed From Changed To RAFAEL MATIASu Oct 15, 2018 11* Hospital En* Erroneous* Normal [facility] XR Hip 2-3 Views Lefton [...] by: Jj Butt DO Technologist: DEBBIE Jennings [facility] Encounters Encounter Date Encounter Type Care Provider Facility Start: 03-25-2020 End: 03-25-2020 Emergency department patient visit [facility] Start: 10-13-2018 End: 10-13-2018 Emergency department patient visit [facility] Start: 06-20-2017 End: 06-21-2017 Ambulatory Jose Keith Facility:[facility] Payers Date Payer Category Payer Unknown Summary [...] section and content) DATE CREATED AUTHOR 03/18/2018 [facility] DATE CREATED AUTHOR AUTHOR'S ORGANIZ ATION 10/25/2018 [facility] DATE CREATED AUTHOR AUTHOR'S ORGANIZ ATION 04/14/2020 [facility] FOR RECORDS PERTAINING TO PATIENTS WHO ARE [...] BE BASED ON THE PRIMARY CLINICAL RECORDS. [employer] provides no warranty or guarantee of the accuracy or completeness of information in this document.
--- NOTE | 2024-07-06 16:54 | POSTOPAN2_ITS ---
Anesthesia Postop Eval I Sum Postop Eval Completion status Anesthesia document: Postop Eval 1 completed: Yes Anesthesia Postop Eval I Summary Anesthesia Postop Eval I Summary: Anesthesia Postop Eval I: Assessment Summary Airway patent Yes 07/06/24 11:50 ASSISTED LIVING HOME DIRECTOR.SKOBY Spontaneous unlabored Yes 07/06/24 11:50 ASSISTED LIVING HOME DIRECTOR.SKOBY respirations Mental status Awake,Calm 07/06/24 11:50 ASSISTED LIVING HOME DIRECTOR.SKOBY nausea No 07/06/24 11:50 ASSISTED LIVING HOME DIRECTOR.SKOBY Vomiting No 07/06/24 11:50 ASSISTED LIVING HOME DIRECTOR.SKOBY Anesthesia Postop Eval I: Fluid Summary Crystalloid volume administer 1,800 07/06/24 11:50 ASSISTED LIVING HOME DIRECTOR.SKOBY (ml) Colloids volume administered ( ml) Blood Product volume administered (ml) Total IV fluid infused 1,800 07/06/24 11:50 ASSISTED LIVING HOME DIRECTOR.SKOBY Anesthesia Postop Eval I: Summary Notes Anesthesia Complication No 07/06/24 11:50 ASSISTED LIVING HOME DIRECTOR.SKOBOrtiz Anesthesia Complication Comment: Post-operative progress note Anesthesia: Postop Eval II Evaluation Mental status: Awake and Calm Pain Level: 1 nausea: No Vomiting: No Complications Anesthesia Complication: No
--- NOTE | 2024-07-06 16:54 | PCM.POSTANE2 ---
Anesthesia Postop Eval I Sum Postop Eval Completion status Anesthesia document: Postop Eval 1 completed: Yes Anesthesia Postop Eval I Summary Anesthesia Postop Eval I Summary: Anesthesia Postop Eval I: Assessment Summary Airway patent Yes 07/06/24 11:50 SPECIALIST PHYSICIAN.SKOBY Spontaneous unlabored Yes 07/06/24 11:50 SPECIALIST PHYSICIAN.SKOBY respirations Mental status Awake,Calm 07/06/24 11:50 SPECIALIST PHYSICIAN.SKOBY nausea No 07/06/24 11:50 SPECIALIST PHYSICIAN.SKOBY Vomiting No 07/06/24 11:50 SPECIALIST PHYSICIAN.SKOBY Anesthesia Postop Eval I: Fluid Summary Crystalloid volume administer 1,800 07/06/24 11:50 SPECIALIST PHYSICIAN.SKOBY (ml) Colloids volume administered ( ml) Blood Product volume administered (ml) Total IV fluid infused 1,800 07/06/24 11:50 SPECIALIST PHYSICIAN.SKOBY Anesthesia Postop Eval I: Summary Notes Anesthesia Complication No 07/06/24 11:50 SPECIALIST PHYSICIAN.SKOBOrtiz Anesthesia Complication Comment: Post-operative progress note Anesthesia: Postop Eval II Evaluation Mental status: Awake and Calm Pain Level: 1 nausea: No Vomiting: No Complications Anesthesia Complication: No
[2024-07-06] MEDS: BENZOCAINE/MENTHOL 1 LOZENGE MUCOUS MEM ×2 (20:40→23:37)
[2024-07-06] MEDS: Atorvastatin Calcium 80 MG Tablet PO (20:40)
[2024-07-07] VITALS (17 sets, daily range): BP systolic 104–139; BP diastolic 67–105; PULSE 58–81; RESP 12–22; TEMP 36–36.6; O2SAT 94–98; BMI 26.4
[2024-07-07 04:01] LABS: Absolute Lymphocyte Count 0.93 X10^3/uL (0.83-4.51); Absolute Neutrophil Count 7.4 X10^3/uL (2.0-7.7); Basophil# 0.02 X10^3/uL; Basophil% 0.2 % (0-1); Hematocrit 40.1 % (40-54); Hemoglobin 14.3 g/dL (13.0-16.5); Lymphocyte # 0.93 X10^3/ul (0.83-4.51); Lymphocyte % 10.3 % (19-41); Mean Corp Hgb Conc 35.7 g/dL (32-36); Mean Corpuscular Hgb 34.8 pg (27.0-32.0); Mean Corpuscular Volume 97.6 fL (80-94); Mean Platelet Vol. 9.6 fl (6.2-12.0); Monocyte% 7.7 % (0-10); NRBC Flagged by Analyzer 0 % (0-5); Neutrophil # 7.35 X10^3/uL (2.7-7.7); Neutrophil % 81.4 % (47-70); Platelet Count 165 K/mm3 (150-450); RBC Distribution Width CV 11.8 % (11.6-14.6); RBC Distribution Width SD 42.5 fl (35.1-43.9); Red Blood Count 4.11 M/mm3 (4.6-6.2)
[2024-07-07] MEDS: Acetaminophen 500 MG Tablet 1000 MG PO (04:44)
[2024-07-07] MEDS: oxyCODONE 5 MG Tablet PO (04:44)
[2024-07-07] MEDS: BENZOCAINE/MENTHOL 1 LOZENGE MUCOUS MEM (04:44)
[2024-07-07 07:41] LABS: ACT Activated Clotting Time 470 sec (74-137)
[2024-07-07 07:41] LABS: ACT Activated Clotting Time 324 sec (74-137)
[2024-07-07 07:41] LABS: ACT Activated Clotting Time 140 sec (74-137)
[2024-07-07 07:41] LABS: ACT Activated Clotting Time 287 sec (74-137)
[2024-07-07] MEDS: Thiamine Hydrochloride 100 MG Tablet PO (07:54)
[2024-07-07] MEDS: Enoxaparin 40 MG/0.4 ML Syringe SC (07:54)
[2024-07-07] MEDS: Clopidogrel Bisulfate 75 MG Tablet PO (07:54)
[2024-07-07] MEDS: Aspirin E.C. 81 MG Tablet PO (07:54)
[2024-07-07] MEDS: Folic Acid 1 MG Tablet PO (07:54)
[2024-07-07] MEDS: Lisinopril 10 MG Tablet PO (07:54)
--- NOTE | 2024-07-07 10:31 | PCM.PN.SRG ---
Subjective Subjective Mr. Dow was seen resting comfortably in bed this morning. He has been neurologically and hemodynamically stable overnight. He reports mild discomfort at the surgical site, expected postop pain. He denies any new/worsening weakness, numbness/paresthesias, dysarthria, dysphagia. He initially had some increased urinary retention but this has improved to his usual baseline. He tolerated a normal diet with breakfast this morning. He has had minimal output from the MICHAEL drain. He has not yet been out of bed. Objective Data Objective Data Vital Signs: Vital Signs Temp Pulse Resp BP Pulse Ox O2 Del Method O2 Flow Rate 97.1 F L 75 18 104/68 97 Room Air 6 07/07/24 08:00 07/07/24 10:00 07/07/24 10:00 07/07/24 10:00 07/07/24 10:00 07/07/24 10:00 07/06/24 12:00 Oxygen Flow Rate (L/min) 6 Oxygen Delivery Method Room Air Weight: 216 lb 7.903 oz Body Mass Index (BMI) 26.4 Intake & Output: Intake and Output for Last 24 Hours 07/05/24 07/06/24 07/07/24 23:59 23:59 23:59 Intake Total 1590 / 1890 750 / 750 Output Total 1075 / 1380 608 / 608 Balance 515 / 510 142 / 142 Lab / Micro Data 07/07/24 03:52 Labs: Laboratory Results - last 24 hr 07/06/24 08:38: Activated Clotting Time 140 H 07/06/24 09:10: Activated Clotting Time 470 H 07/06/24 09:45: Activated Clotting Time 324 H 07/06/24 10:22: Activated Clotting Time 287 H 07/07/24 03:52: WBC 9.0, RBC 4.11 L, Hgb 14.3, Hct 40.1, MCV 97.6 H, MCH 34.8 H, MCHC 35.7, RDW Std Deviation 42.5, RDW Coeff of Kassidy 11.8, Plt Count 165, MPV 9.6, Immature Gran % (Auto) 0.400, Neut % (Auto) 81.4 H, Lymph % (Auto) 10.3 L, [place] % (Auto) 7.7, Eos % (Auto) 0.0, Baso % (Auto) 0.2, Absolute Neuts (auto) 7.4, Absolute Lymphs (auto) 0.93, Nucleated RBC % 0 Physical Exam Const alert, oriented x3 and no apparent distress General Appearance: cooperative and comfortable HEENT normocephalic, external ears normal and external nose normal Eyes EOMs intact bilaterally General Eye: normal appearance of both eyes Neck Neck Narrative: Neck incision site with mild swelling, soft and nontender to palpation. Incision with skin glue intact, no dehiscence. Reactive erythema from adhesive dressing once removed. No warmth, drainage, evidence of hematoma. MICHAEL drain with small amount of serosanguineous drainage. Resp normal respiratory effort, normal air movement and No no retractions Effort and Inspection: able to speak in complete sentences; Negative for labored, grunting or stridor Cardio regular rate and regular rhythm Extremity no clubbing, cyanosis or edema Skin no rashes or lesions noted Neuro oriented x3, CN's II-XII intact bilaterally, moves all extremities, no focal motor deficits and no sensory deficits noted Psych mental status grossly normal Appearance: grossly normal Attitude: calm and engaged Activity / Motor Behavior: appropriate eye contact Speech: normal speech Mood & Affect: euthymic mood Judgement: judgement good Assessment & Plan Assessment/Plan (1) Carotid stenosis, symptomatic, with infarction: PLAN: He is status post right CEA on 07/06/2024. He has remained hemodynamically and neurologically stable. Incision site is satisfactory in appearance. MICHAEL drain was removed this morning and he tolerated this well. He tolerated normal diet, pain is well-controlled, improving urinary retention symptoms. Will have him ambulate with nursing later this morning. As long as he does well with this anticipate discharge this afternoon.
--- NOTE | 2024-07-07 11:03 | CASEMGMT ---
Readmission review completed and documented in the intervention CM: Readmission Intervention. Javier MAYNARD RN CM
--- NOTE | 2024-07-07 13:16 | PCM.DC.SUM ---
Providers Date of Admission: 07/06/24 Primary Care Physician: ALLIE Hawkins Reason For Visit: right Carotid Endarterectomy Diagnosis Discharge Diagnosis (1) Carotid stenosis, symptomatic, with infarction: Status: Chronic Code(s): I63.239 - Cerebral infarction due to unspecified occlusion or stenosis of unspecified carotid artery Plan: He is status post right CEA on 07/06/2024. He has remained hemodynamically and neurologically stable. Incision site is satisfactory in appearance. MICHAEL drain was removed this morning and he tolerated this well. He tolerated normal diet, pain is well-controlled, improving urinary retention symptoms. Will have him ambulate with nursing later this morning. As long as he does well with this anticipate discharge this afternoon. Medications at Discharge Home Medications aspirin 81 mg tablet,delayed release (Анна Low Dose Aspirin) 81 mg PO DAILY BLOOD THINNER #30 tabs 06/08/24 clopidogrel 75 mg tablet (Plavix) 75 mg PO DAILY BLOOD THINNER 60 days #60 tabs 06/08/24 folic acid 1 mg tablet 1 mg PO BREAKFAST SUPPLEMENT 1 month #30 tabs 06/08/24 lisinopril 10 mg tablet 10 mg PO DAILY BP 30 days #30 tabs 06/08/24 nicotine 21 mg/24 hr daily transdermal patch 21 mg transdermal DAILY STOP SMOKING 28 days #28 ea 06/08/24 rosuvastatin 40 mg tablet 40 mg PO DAILY CHOLESTEROL 1 month #30 tabs 06/08/24 thiamine HCl (vitamin B1) 100 mg tablet 100 mg PO DAILYCM SUPPLEMENT 30 days #30 tabs 06/08/24 oxycodone 5 mg tablet 5 mg PO Q8H PRN PRN Pain Score 4-10 3 days #9 tabs 07/07/24 Hospital Course Summary of Care Provided Hospital Course: Mr. Melvin Dow is a 68 y/o male who underwent right carotid endarterectomy on 07/06/2024. The procedure was without complication and he tolerated well. Postoperatively, he was routinely admitted to the ICU for ongoing neurologic and hemodynamic monitoring. He has remained neurologically stable at his neuro baseline since his recent stroke. He has remained hemodynamically stable throughout his stay. He had minimal output through the MICHAEL drain and that was removed this morning without issue. He has tolerated a normal diet, ambulated without issue, and his pain is well-controlled. He initially had some urinary retention postoperatively but this has improved to his baseline throughout the day. He is discharged to home in stable condition on 07/07/2024. Physical Exam Const alert, oriented x3 and no apparent distress General Appearance: cooperative and comfortable HEENT normocephalic, external ears normal and external nose normal Eyes EOMs intact bilaterally General Eye: normal appearance of both eyes Neck Neck Narrative: Neck incision site with mild swelling, soft and nontender to palpation. Incision with skin glue intact, no dehiscence. Reactive erythema from adhesive dressing once removed. No warmth, drainage, evidence of hematoma. MICHAEL drain with small amount of serosanguineous drainage. Resp normal respiratory effort, normal air movement and No no retractions Effort and Inspection: able to speak in complete sentences; Negative for labored, grunting or stridor Cardio regular rate and regular rhythm Extremity no clubbing, cyanosis or edema Skin no rashes or lesions noted Neuro oriented x3, CN's II-XII intact bilaterally, moves all extremities, no focal motor deficits and no sensory deficits noted Psych mental status grossly normal Appearance: grossly normal Attitude: calm and engaged Activity / Motor Behavior: appropriate eye contact Speech: normal speech Mood & Affect: euthymic mood Judgement: judgement good Weight / BMI Weight Weight: 216 lb 7.903 oz Body Mass Index (BMI) 26.4 ABG / Lab / Microbiology Data 07/07/24 03:52 Laboratory: Laboratory Results - last 24 hr 07/06/24 08:38: Activated Clotting Time 140 H 07/06/24 09:10: Activated Clotting Time 470 H 07/06/24 09:45: Activated Clotting Time 324 H 07/06/24 10:22: Activated Clotting Time 287 H 07/07/24 03:52: WBC 9.0, RBC 4.11 L, Hgb 14.3, Hct 40.1, MCV 97.6 H, MCH 34.8 H, MCHC 35.7, RDW Std Deviation 42.5, RDW Coeff of Kassidy 11.8, Plt Count 165, MPV 9.6, Immature Gran % (Auto) 0.400, Neut % (Auto) 81.4 H, Lymph % (Auto) 10.3 L, [place] % (Auto) 7.7, Eos % (Auto) 0.0, Baso % (Auto) 0.2, Absolute Neuts (auto) 7.4, Absolute Lymphs (auto) 0.93, Nucleated RBC % 0 D/C Instructions Discharge Diet: No restrictions May shower in (days): 1 Weight Bearing Status: Weight bearing as tolerated Lifting Restricted to (Lbs): 20 Lifting Restrictions: Do not lift greater than 20 pounds for 3 weeks Call your doctor if your incision/area has: Sudden Increased Bleeding, Increased Pain/ Swelling and Foul Smelling Discharge Call your doctor if you observe: Fever of 101 or Higher and Uncontrolled pain Remove Dressing in: 1 day Additional Dressing/Incision Instructions: You have a small bandage over the site from which the surgical drain was removed. You may remove this bandage tomorrow after your first shower. As long as there is no residual drainage, you may leave this open to air. If you do notice some continued drainage, you may re-cover with a Band-Aid. Your incision site is covered with surgical glue which will continue to protect it. The surgical glue will peel/flake off on its own over the next few weeks. Please do not pick at it. You may shower tomorrow. It is okay for soap and water to rinse over the incision site, pat to dry. Do not submerge the incision site in water such as to take a bath or go swimming etc. for 3 weeks. Do not lift greater than 20 pounds for 3 weeks. Otherwise, please continue with activity as tolerated. I have prescribed oxycodone 5mg tablet to be taken by mouth every 8 hours as needed for pain. Take only as prescribed. Do not take in combination with other prescription pain medications. You may take this in addition to Tylenol. You should continue to take Plavix 75mg tablet by mouth daily and Aspirin 81mg tablet by mouth daily. You are scheduled for a follow-up appointment in the office on 07/27/24 at 3:00 PM. If you have any questions, concerns, or need to change your appointment, please contact the office at [phone]. Please Follow Up With: Sona Mitchell PA When: 07/27/2024 at 3 PM Meaningful Use Info Meaningful Use Meaningful Use Diagnoses (Choose all that apply): None applicable Ischemic Stroke Statin Dosing Therapy Reference: STATIN DOSE THERAPY REFERENCE: * Patients > 75 years receive moderate or high dose statin therapy. * Patients 75 years or YOUNGER should receive HIGH intensity statin dose unless contraindicated. You will be required to document reason for non-treatment if statin daily dose does not meet guidelines. HIGH DOSE STATIN THERAPY DAILY Atorvastatin > than or = to 40 mg Rosuvastatin > than or = to 20 mg Amlodipine + Atorvastatin > than or = to 2.5/40 mg Ezetimibe + Simvastatin 10/80 mg Simvastatin 80mg Discharge Plan Admission Admit Date/Time: 07/06/24 11:05 Attending Provider: Bry Strange Primary Care Provider: Anthony Shine Instructions Additional Instructions / Restrictions: You have a small bandage over the site from which the surgical drain was removed. You may remove this bandage tomorrow after your first shower. As long as there is no residual drainage, you may leave this open to air. If you do notice some continued drainage, you may re-cover with a Band-Aid. Your incision site is covered with surgical glue which will continue to protect it. The surgical glue will peel/flake off on its own over the next few weeks. Please do not pick at it. You may shower tomorrow. It is okay for soap and water to rinse over the incision site, pat to dry. Do not submerge the incision site in water such as to take a bath or go swimming etc. for 3 weeks. Do not lift greater than 20 pounds for 3 weeks. Otherwise, please continue with activity as tolerated. I have prescribed oxycodone 5mg tablet to be taken by mouth every 8 hours as needed for pain. Take only as prescribed. Do not take in combination with other prescription pain medications. You may take this in addition to Tylenol. You should continue to take Plavix 75mg tablet by mouth daily and Aspirin 81mg tablet by mouth daily. You are scheduled for a follow-up appointment in the office on 07/27/24 at 3:00 PM. If you have any questions, concerns, or need to change your appointment, please contact the office at [phone]. Discharge Orders/Prescriptions Prescriptions: New oxycodone 5 mg Tablet 5 mg PO Q8H PRN PRN (Reason: Pain Score 4-10) 3 Days Qty: 9 0RF Continued folic acid 1 mg Tablet 1 mg PO BREAKFAST 30 Days Qty: 30 3RF thiamine HCl (vitamin B1) 100 mg Tablet 100 mg PO DAILYCM 30 Days Qty: 30 3RF nicotine 21 mg/24 hr Patch 24 Hour 21 mg transdermal DAILY 28 Days Qty: 28 0RF aspirin [Анна Low Dose Aspirin] 81 mg tablet,delayed release (DR/EC) 81 mg PO DAILY Qty: 30 3RF lisinopril 10 mg tablet 10 mg PO DAILY 30 Days Qty: 30 0RF rosuvastatin 40 mg tablet 40 mg PO DAILY 30 Days Qty: 30 0RF clopidogrel [Plavix] 75 mg tablet 75 mg PO DAILY 60 Days Qty: 60 0RF Referrals / Follow Up: Care Physician,No Primary [Non-Staff] - Disposition Disposition (needs filled in before D/C Order can be placed): Home, Self Care
== END 2024-07-07 14:30 | disposition home or self-care (01) | DRG 39 ==
LOC: ICU 14:50
PROVIDERS: Admitting Provider Surgery Trauma Surgery; PCP Physician Assistant; Referring Provider Surgery Trauma Surgery; Visit Provider Surgery Trauma Surgery
PROC: 03CM0ZZ Extirpation of Matter from Right External Carotid Artery, Open Approach (ICD-10-PCS; CPT 35301; principal; 2024-07-06 07:10)
DX: I63.231 Cerebral infarction due to unspecified occlusion or stenosis of right carotid arteries (principal); E78.00 Pure hypercholesterolemia, unspecified; I10 Essential (primary) hypertension; Z79.02 Long term (current) use of antithrombotics/antiplatelets; Z79.82 Long term (current) use of aspirin; Z79.899 Other long term (current) drug therapy; Z87.891 Personal history of nicotine dependence
CPT/HCPCS: 85025; 85347; 88304; 88311; 94668; 99252; 99406; A4648; J7040; J7120; A4216; G0463; J2405

== ENCOUNTER → 2025-02-16 | Outpatient (CLI) | payer OTHER, SELFPAY ==
--- NOTE | 2025-02-16 08:56 | CDU_ITS ---
Reason For Study Reason For Study: S/P right CEA Rt. Velocities/BP Lt. Velocities/BP Prox CCA 69.2/15.4 cm/sec. Prox CCA 59.6/16 cm/sec. Mid CCA 70.2/19.2 cm/sec. Mid CCA 64.8/16 cm/sec. Dist CCA 71.1/21.1 cm/sec. Dist CCA 59.6/16 cm/sec. Prox ICA 43.3/9 cm/sec. Prox ICA 77.3/15.7 cm/sec. Mid ICA 85.1/33.5 cm/sec. Mid ICA 103.5/26.2 cm/sec. Dist ICA 90/33.5 cm/sec. Dist ICA 53.2/20 cm/sec. Rt. ICA/CCA = 1.21. Lt. ICA/CCA = 1.60. Prox ECA 239.2/39.7 cm/sec. Prox ECA 101.4/22.3 cm/sec. Rt. Vert. 26.5/8.8 cm/sec. Lt. Vert. 39.7/15.1 cm/sec. Right Extracranial There is homogeneous, smooth atherosclerotic plaque noted in the right common carotid artery. There is heterogeneous, irregular atherosclerotic plaque noted in the right internal carotid artery. There is heterogeneous, irregular atherosclerotic plaque noted in the right external carotid artery. Antegrade flow is noted in the right vertebral artery. Left Extracranial There is homogeneous, smooth atherosclerotic plaque noted in the left common carotid artery. There is heterogeneous, irregular atherosclerotic plaque noted in the left internal carotid artery. There is heterogeneous, irregular atherosclerotic plaque noted in the left external carotid artery. Antegrade flow is noted in the left vertebral artery. Procedure Carotid Duplex [id number]. This is a Carotid Duplex examination using B-mode, color flow and specral Doppler. Exam performed in department. VL/Carotid Duplex Ultrasound Interpretation Summary Mild (<50%) stenosis right extracranial internal carotid. Mild (<50%) stenosis left extracranial internal carotid. Patent and antegrade vertebrals bilaterally. Ordering Physician: Sona Mitchell Referring Physician: Anthony Shine Performed By: Marti Phan RVT
== END | disposition home or self-care (01) ==
PROVIDERS: PCP Physician Assistant; Referring Provider Physician Assistant; Visit Provider Physician Assistant
DX: Z48.812 Encounter for surgical aftercare following surgery on the circulatory system (principal)
CPT/HCPCS: 93880

== ENCOUNTER → 2025-07-14 | Outpatient (CLI) | payer OTHER, MEDICARE, SELFPAY ==
[2025-07-14 11:25] LABS: AST(SGOT) 29 U/L (<=37); Alanine Aminotransfer ALT/SGPT 29 U/L (<=46); Albumin, Serum 4.1 g/dL (3.4-4.8); Alkaline Phosphatase 78 U/L (40-129); Anion Gap 8 (5-15); BUN 18 mg/dL (4-19); BUN/Creat Ratio 19.7 RATIO (10-20); Calcium,Total 9.4 mg/dL (7.6-11.0); Carbon Dioxide 28.8 mmol/L (21.0-32.0); Chloride 102 mmol/L (98-108); Globulin 2.4 g/dL (2.2-4.2); Glucose 112 mg/dL (70-99); Magnesium 2.3 mg/dL (1.5-2.2); Potassium 4.3 mmol/L (3.3-5.1)
== END | disposition home or self-care (01) ==
LOC: LAB 10:30
PROVIDERS: PCP Physician Assistant; Referring Provider Internal Medicine Cardiovascular Disease; Visit Provider Internal Medicine Cardiovascular Disease
DX: E78.5 Hyperlipidemia, unspecified (principal); I10 Essential (primary) hypertension; R42 Dizziness and giddiness; I49.9 Cardiac arrhythmia, unspecified
CPT/HCPCS: 36415; 80053; 83735; 84443

== ENCOUNTER → 2025-08-01 | Outpatient (CLI) | payer SELFPAY ==
--- OUTSIDE RECORDS SUMMARY | 2025-08-01 06:57 | XMS RPT_ITS | CCD ---
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 Bry Strange MD Attending Provider [phone] Katherine Chavez Unavailable Unavailabl e Anthony Mcdowell Primary Care Physician Anthony Mcdowell Referring Provider Dr. Theodore Azevedo MD Attending Physician Anthony Mcdowell Primary Care Physician Dr. Theodore Azevedo MD Referring Provider EDITH, LUKE E Primary Care Unavailable EDITH, LUKE E Consulting Unavailable EDITH, LUKE E Attending Unavailable EDITH, LUKE E Admitting Unavailable PROVIDER, UNKNOWN Consulting Unavailable EDITH, LUKE E Consulting Unavailable EDITH, LUKE E Attending Unavailable EDITH, LUKE E Admitting Unavailable EDITH, LUKE E Primary Care Unavailable PROVIDER, UNKNOWN Consulting Unavailable EDITH, LUKE E Consulting Unavailable EDITH, LUKE E Attending Unavailable EDITH, LUKE E Admitting Unavailable EDITH, LUKE E Primary Care Unavailable PROVIDER, UNKNOWN Consulting Unavailable EDITH, LUKE E Primary Care Unavailable EDITH, LUKE E Consulting Unavailable EDITH, LUKE E Attending Unavailable EDITH, LUKE E Admitting Unavailable PROVIDER, UNKNOWN Consulting Unavailable Edith, Luke Primary Care Unavailable Roberto Carlos, Theodore Attending Unavailable Roberto Carlos, Theodore Referring Unavailable Roberto Carlos, Theodore Attending Unavailable Roberto Carlos, Theodore Referring Unavailable Edith, Luke Primary Care Unavailable Edith, Luke Primary Care Unavailable Mitchell, Sona Attending Unavailable Mitchell, Sona Referring Unavailable Edith, Luke Primary Care Unavailable Edith, Luke Referring Unavailable Roberto Carlos, Theodore Attending Unavailable Edith, Luke Primary Care Unavailable Mitchell, Sona Referring Unavailable Bry Strange Attending Unavailable Allergies Allergy Classification Reported Allergen(s) Allergy Type Date of Onset Reaction(s) Facility (1 source) buPROPion; Translations: [BUPROPION HCL] Drug Allergy 10-03-2010 [facility] Repository (18 sources) [facility] ([facility] sources) buPROPion Drug Allergy 07-27-2024 [facility] Comment on above: pain (1 source) buPROPion Drug Allergy [facility] Repository (1 source) buPROPion Drug Allergy 07-06-2025 [facility] Repository Medications Current Medications Medication Drug Class(es) Dates Sig (Normalized) Sig (Original) aspirin 81 mg delayed release oral tablet (20 sources) Platelet Aggregation Inhibitor, Nonsteroidal Anti-inflammatory Drug Start: 03-10-2025 aspirin 81 mg tablet,delayed release ; 1 (one) tablet daily for 0 days Quantity: 90 {Tablet} Refills: 0 Ordered: 10-Mar-2025 BRANDON Shine Start: 10-Mar-2025 Start: 06-08-2024 End: 01-12-2025 aspirin 81 mg tablet,delayed release ; 1 (one) tablet daily for 0 days Quantity: 30 {Tablet} Refills: 0 Ordered: 01-Feb-2025 BRANDON Shine Start: 01-Feb-2025 cholecalciferol 0.05 mg oral capsule (1 source) Vitamin D Start: 07-06-2025 take 1 capsule by mouth once daily folic acid 1 mg oral tablet (20 sources) Start: 03-10-2025 folic acid 1 m g tablet ; 1 (one) tablet daily for 0 days Quantity: 90 {Tablet} Refills: 0 Ordered: 10-Mar-2025 BRANDON Shine Start: 10-Mar-2025 Start: 02-25-2025 folic acid 1 m g tablet ; 1 (one) tablet daily for 0 days Quantity: 30 {Tablet} Refills: 0 Ordered: 25-Feb-2025 BRANDON Shine Start: 25-Feb-2025 Start: 02-01-2025 folic acid 1 m g tablet ; 1 (one) tablet daily for 0 days Quantity: 30 {Tablet} Refills: 0 Ordered: 01-Feb-2025 BRANDON Shine Start: 01-Feb-2025 Start: 06-08-2024 End: 01-12-2025 take 1 tablet by mouth at breakfast furosemide 40 mg oral tablet (2 sources) Loop Diuretic Start: 07-06-2025 take 1 tablet by darrick th once daily Start: 07-06-2025 End: 07-06-2025 take 1 tablet by mouth once daily Furosemide (Lasix) 40 mg tablet Discontinued 40 mg PO daily July 06, 2025 12:00am July 06, 2025 1:40pm hydroCHLOROthiazide 12.5 mg oral capsule (2 sources) Thiazide Diuretic Start: 06-24-2025 End: 07-06-2025 take 1 capsule by mouth once daily Hydrochlorothiazide 12.5 mg capsule Discontinued 12.5 mg PO daily June 24, 2025 12:00am July 06, 2025 11:52am Start: 05-03-2025 hydroCHLOROthi azide 12.5 mg tablet ; 1 Tablet daily for 30 days Quantity: 30 {Tablet} Refills: 0 Ordered: 03-May-2025 BRANDON Shine Start: 03-May-2025 potassium chloride 20 meq extended release oral tablet (2 sources) Start: 07-06-2025 take 1 tablet by darrick th once daily Start: 07-06-2025 End: 07-06-2025 take 1 tablet by mouth once daily Potassium Chloride (K-Tab) 20 mEq tablet extended release Discontinued 20 meq PO daily July 06, 2025 12:00am July 06, 2025 1:40pm rosuvastatin calcium 40 mg oral tablet (20 sources) HMG-CoA Reductase Inhibitor Start: 06-08-2024 End: 01-12-2025 take 1 tablet by mouth once daily thiamine 100 mg oral tablet (20 sources) Start: 06-08-2024 take 1 tablet by mouth once daily at mealtime Completed/Discontinued Medications Medication Drug Class(es) Dates Sig (Normalized) Sig (Original) clopidogrel 75 mg oral tablet (20 sources) [id number] Platelet Inhibitor Start: 06-08-2024 End: 06-24-2025 take 1 tablet by mouth once daily Clopidogrel (Plavix) 75 mg tablet Discontinued 75 mg PO DAILY 60 60 0 June 08, 2024 12:44pm June 24, 2025 12:58pm BLOOD THINNER lisinopril 10 mg oral tablet (20 sources) Angiotensin Converting Enzyme Inhibitor Start: 06-05-2024 End: 07-06-2025 take 1 tablet by mouth once daily Lisinopril 10 mg tablet Discontinued 10 mg PO daily June 24, 2025 12:00am July 06, 2025 10:04am meclizine hydrochloride 25 mg oral tablet (18 sources) Antiemetic Start: 06-24-2025 End: 07-06-2025 take 1 tablet by mouth every six hours as needed for dizziness Meclizine 25 mg tablet Discontinued 25 mg PO EVERY 6 HOURS as needed for dizziness June 24, 2025 12:00am July 06, 2025 10:04am Start: 07-06-2024 meclizine 25 m g tablet ; 1 (one) tablet Q 6 hours PRN dizziness for 0 days Quantity: 25 {Tablet} Refills: 0 Ordered: 06-Jul-2024 FLORENCIA Weaver Start: 06-Jul-2024 24 hr nicotine 0.583 mg/hr transdermal system (20 sources) Cholinergic Nicotinic Agonist Start: 07-06-2024 End: 07-20-2024 apply 1 dose transdermal route once daily nicotine 14 mg/24 hr daily transdermal patch ; 1 (one) patch, transdermal 24 hours daily for 14 days Quantity: 14 {Patch} Refills: 0 Ordered: 06-Jul-2024 BRANDON Shine Start: 06-Jul-2024 End: 20-Jul-2024 Status: Inactive Start: 07-06-2024 End: 07-27-2024 apply 1 dose transdermal route once daily nicotine 21 mg/24 hr daily transdermal patch ; 1 (one) patch, transdermal 24 hours daily for 21 days Quantity: 21 {Patch} Refills: 0 Ordered: 06-Jul-2024 BRANDON Shine Start: 06-Jul-2024 End: 27-Jul-2024 Status: Inactive Start: 07-06-2024 End: 07-20-2024 apply 1 dose transdermal route once daily nicotine 7 mg/24 hr daily transdermal patch ; 1 (one) patch, transdermal 24 hours daily for 14 days Quantity: 14 {Patch} Refills: 0 Ordered: 06-Jul-2024 BRANDON Shine Start: 06-Jul-2024 End: 20-Jul-2024 Status: Inactive Start: 06-08-2024 End: 06-24-2025 apply 1 dose transdermal route every twenty-four hours Nicotine 21 mg/24 hr Patch 24 Hour Discontinued 21 mg TD DAILY 28 28 0 June 08, 2024 12:00am June 24, 2025 12:58pm STOP SMOKING oxyCODONE hydrochloride 5 mg oral tablet (2 sources) Opioid Agonist Start: 07-07-2024 End: 06-24-2025 take 1 tablet by mouth every eight hours as needed for pain Oxycodone 5 mg Tablet Discontinued 5 mg PO EVERY 8 HOURS NEEDED as needed for Pain Score 4-10 9 3 0 July 07, 2024 June 24, 2025 12:59pm Postoperative pain Other acute postprocedural pain tadalafil 2.5 mg oral tablet (10 sources) Phosphodiesterase 5 Inhibitor Start: 06-24-2025 End: 07-06-2025 take 1 tablet by mouth once daily as needed Tadalafil (Cialis) 2.5 mg tablet Discontinued 2.5 mg PO daily as needed June 24, 2025 12:00am July 06, 2025 10:05am Start: 01-13-2025 tadalafiL 2.5 mg tablet ; 1 (one) tablet daily for 0 days Quantity: 30 {Tablet} Refills: 2 Ordered: 13-Jan-2025 Katherine Chavez Start: 13-Jan-2025 Problems Active Problems Problem Classification Problem Date Documented Date Episodic/Chronic Acute cerebrovascular disease (20 sources) Cerebrovascular accident; Translations: [Cerebral infarction, unspecified] Onset: 07-06-2025 07-06-2024 Chronic Comment on above: Status post right CE A 06/2024 Cardiac dysrhythmias (20 sources) Irregular heart beat; Translations: [Cardiac arrhythmia, unspecified] Onset: 07-06-2025 07-05-2024 Chronic Conditions associated with dizziness or vertigo (20 sources) Vertigo; Translations: [Dizziness and giddiness] Onset: 07-06-2025 07-06-2024 Episodic Disorders of lipid metabolism (20 sources) Hyperlipidemia; Translations: [Hyperlipidemia, unspecified] Onset: 07-23-2025 07-06-2024 Chronic Essential hypertension (20 sources) Hypertensive disorder; Translations: [Essential (primary) hypertension] Onset: 07-06-2025 07-06-2024 Chronic Hyperplasia of prostate (18 sources) Benign prostatic hyperplasia; Translations: [Benign prostatic hyperplasia without lower urinary tract symptoms] 01-12-2025 Chronic Nutritional deficiencies (20 sources) Folic acid deficiency; Translations: [Deficiency of other specified B group vitamins] 10-04-2024 Episodic Occlusion or stenosis of precerebral arteries (20 sources) Carotid artery stenosis; Translations: [Occlusion and stenosis of unspecified carotid artery] 07-06-2024 Chronic Other circulatory disease (2 sources) History of cerebrovascular accident; Translations: [Personal history of transient ischemic attack (TIA), and cerebral infarction without residual deficits] 07-06-2025 Episodic Other circulatory disease (1 source) Personal history of transient ischemic attack (TIA), and cerebral infarction without residual deficits; Translations: [Personal history of transient ischemic attack (TIA), and cerebral infarction without residual deficits] Onset: 07-06-2025 Episodic Other hematologic conditions (20 sources) Macrocytosis; Translations: [Other specified diseases of blood and blood-forming organs] 01-12-2025 Chronic Other lower respiratory disease (2 sources) Dyspnea on exertion; Translations: [Other forms of dyspnea] 07-06-2025 Episodic Other lower respiratory disease (2 sources) Other forms of dyspnea; Translations: [Other forms of dyspnea] Onset: 07-06-2025 Episodic Other screening for suspected conditions (not mental disorders or infectious disease) (20 sources) Patient encounter status; Translations: [Encounter for screening for diseases of the blood and blood-forming organs and certain disorders involving the immune mechanism] 12-29-2024 Episodic Residual codes; unclassified (7 sources) Bilateral lower limb edema; Translations: [Localized edema] 05-02-2025 Episodic Residual codes; unclassified (1 source) Localized edema; Translations: [Localized edema] Onset: 07-06-2025 Episodic Substance-related disorders (20 sources) Tobacco dependence syndrome; Translations: [Nicotine dependence, unspecified, uncomplicated] 07-06-2024 Chronic Unclassified (18 sources) GERD/ACID REFLUX 07-05-2024 Unclassified (1 source) MCR Well Adult - In general the patient feels well with minor complaints (Constant hissing in ears.H/A comes and goes). The patient has a balanced diet and has an inappropriate diet. The patient exercises none (Active) and sleeps 6 hours per night. The patient denies having trouble with bathing, dressing/grooming, toileting, preparing meals and ambulating. The patient denies having trouble with grocery shopping, driving, use of telephone, housework, laundry, preparing/taking medications and finances. 07-05-2024 Unclassified (17 sources) MCR Well Adult - In general the patient feels well with minor complaints (Constant hissing in ears with slight hearing loss and intermittent vertigo. H/A comes and goes but is mild.). The patient has a balanced diet and has an inappropriate diet. The patient exercises none (Active) and sleeps 6 hours per night. The patient denies having trouble with bathing, dressing/grooming, toileting, preparing meals and ambulating. The patient denies having trouble with grocery shopping, driving, use of telephone, housework, laundry, preparing/taking medications and finances. 07-06-2024 Unclassified (1 source) Follow up for multiple chronic conditions - The patient is here for follow-up of GERD, hyperlipidemia, hypertension and other condition(s) (carotid artery stenosis). The patient always takes the prescribed medications. No side effects noted. The patient has an active lifestyle but no regular exercise program. The patient's out of office blood pressure checks occur frequently and dietary compliance is fairly good usually adhering to recommendations. The patient states that there is no recent angina or dyspnea and headaches are rarely noted. The patient states that the disease has no overall impact. Note for Multiple chronic conditions follow-up: Patient is here today to follow up on recent lab work. 01-12-2025 Unclassified (9 sources) Follow up for multiple chronic conditions - The patient is here for follow-up of GERD, hyperlipidemia, hypertension and other condition(s) (carotid artery stenosis). The patient always takes the prescribed medications. No side effects noted. The patient has an active lifestyle but no regular exercise program. The patient's out of office blood pressure checks occur frequently and dietary compliance is fairly good usually adhering to recommendations. The patient states that there is no recent angina or dyspnea and headaches are rarely noted. The patient states that the disease has no overall impact. Note for Multiple chronic conditions follow-up: Patient is here today to follow up on recent lab work. Currently feeling well aside from vertigo symptoms that have been accompanied by diminished hearing and tinnitus. Symptoms have progressively worsened since CVA and are resulting in significant phonophobia as of late. 01-13-2025 Past or Other Problems Problem Classification Problem Date Documented Date Episodic/Chronic Other aftercare (1 source) Encounter for surgical aftercare following surgery on the circulatory system; Translations: [Encounter for surgical aftercare following surgery on the circulatory system] Onset: 02-21-2025 Episodic Unclassified (2 sources) Edema - The onset of the edema has been gradual and has been occurring in a continuous pattern for 2 weeks . The edema is characterized as moderate , and the course of the edema has been increasing. It affects both lower extremities. Note for Edema: bought patient compression stockings but patient states that they are too tight and not the right size so he is unable to don them. Patient states has always had trouble with edema in his legs but the last few weeks it has become significantly more prominent bilaterally and more painful along the dorsum of his foot. His right is worse than the left. 05-02-2025 NEGATED: Highlighted row has been ruled out!Unclassified (3 sources) No Problem Information Available Results Test Name Value Interpretation Reference Range Facility CREATININEon 07-28-2025 AGE 69 years Normal [facility] Comment on above: Performed By: #### [id number] #### [facility],[address] [place] [address] Creatinine [Mass/Vol] 1.05 mg/dL Normal 0.70 - 1.30 [facility] Comment on above: Performed By: #### [id number] #### [facility],[address] [place] [address] GFR/1.73 sq M.predicted among non-blacks MDRD (S/P/Bld) [Vol rate/Area] mL/min/{1.73_m2} Normal 60 - 999 [facility] Comment on above: Performed By: #### [id number] #### [facility],[address] [place] [id number] Anion gap in Serum or Plasma Ordered By: Theodore Azevedo on 07-14-2025 Anion gap [Moles/Vol] 8 mmol/L -15 [facility] BUN/creatinine ratioOrdered By: Theodore Azevedo on 07-14-2025 Urea nitrogen/Creatinine [Mass ratio] 19.7 mg/mg 07-11 [facility] Bilirubin, totalOrdered By: Theodore Azevedo on 07-14-2025 Bilirubin [Mass/Vol] 0.52 mg/dL 0.00-1.30 [facility] Carbon dioxide, total [Moles /volume] in Central venous bloodOrdered By: Theodore Azveedo on 07-14-2025 CO2 [Moles/Vol] 28.8 mmol/L 21.0-32.0 [facility] Chloride assayOrdered By: Kenney Azevedo on 07-14-2025 Chloride [Moles/Vol] 102 mmol/L 98-108 [facility] Comprehensive Metabolic Prof ilon 07-14-2025 Albumin [Mass/Vol] 4.1 g/dL Normal 3.4-4.8 [facility] Comment on above: Performed By: #### L [id number], [id number], [id number] #### [facility] [address] [place], [address] Albumin/Globulin [Mass ratio] 1.7 {ratio} Normal 0.9-2.4 [facility] Comment on above: Performed By: #### L [id number], [id number], [id number] #### [facility] [address] [place], [address] ALK PHOS 78 U/L Normal 40-129 [facility] Comment on above: Performed By: #### L [id number], [id number], [id number] #### [facility] [address] [place], [address] ALT [Catalytic activity/Vol] 29 U/L Normal <=46 [facility] Comment on above: Performed By: #### L [id number], [id number], [id number] #### [facility] [address] [place], [address] AST [Catalytic activity/Vol] 29 U/L Normal <=37 [facility] Comment on above: Performed By: #### L [id number], [id number], [id number] #### [facility] [address] [place], [address] Bilirubin [Mass/Vol] 0.52 mg/dL Normal 0.00-1.30 [facility] Comment on above: Performed By: #### L [id number], [id number], [id number] #### [facility] [address] [place], [address] BUN/CRE 19.7 RATIO Normal 10-20 [facility] Comment on above: Performed By: #### L [id number], [id number], [id number] #### [facility] [address] [place], [address] Calcium [Mass/Vol] 9.4 mg/dL Normal 7.6-11.0 [facility] Comment on above: Performed By: #### L [id number], [id number], [id number] #### [facility] [address] [place], [address] Chloride [Moles/Vol] 102 mmol/L Normal 98-108 [facility] Comment on above: Performed By: #### L [id number], [id number], [id number] #### [facility] [address] [place], [address] CO2 [Moles/Vol] 28.8 mmol/L Normal 21.0-32.0 [facility] Comment on above: Performed By: #### L [id number], [id number], [id number] #### [facility] [address] [place], [address] Creatinine [Mass/Vol] 0.93 mg/dL Normal 0.70-1.20 [facility] Comment on above: Performed By: #### L [id number], [id number], [id number] #### [facility] [address] [place], [address] GAP 8 Normal 5-15 [facility] Comment on above: Performed By: #### L [id number], [id number], [id number] #### [facility] [address] [place], [address] GFR/1.73 sq M.predicted among non-blacks MDRD (S/P/Bld) [Vol rate/Area] 90 mL/min/{1.73_m2} Normal >60 [facility] Comment on above: Result Comment: mL/m in/1.73m2 CKD-EPI Creatinine Equation (2020) Performed By: #### L [id number], [id number], [id number] #### [facility] [address] [place], [address] Globulin (S) [Mass/Vol] 2.4 g/dL Normal 2.2-4.2 [facility] Comment on above: Performed By: #### L [id number], [id number], [id number] #### [facility] [address] [place], [address] Glucose [Mass/Vol] 112 mg/dL High 70-99 [facility] Comment on above: Performed By: #### L [id number], [id number], [id number] #### [facility] [address] [place], [address] Potassium [Moles/Vol] 4.3 mmol/L Normal 3.3-5.1 [facility] Comment on above: Performed By: #### L [id number], [id number], [id number] #### [facility] [address] [place], [address] Sodium [Moles/Vol] 140 mmol/L Normal 133-145 [facility] Comment on above: Performed By: #### L [id number], [id number], [id number] #### [facility] [address] [place], [address] T PROT 6.5 g/dL Normal 5.9-8.4 [facility] Comment on above: Performed By: #### L [id number], [id number], [id number] #### [facility] [address] [place], [address] Urea nitrogen [Mass/Vol] 18 mg/dL Normal 4-19 [facility] Comment on above: Performed By: #### L [id number], [id number], [id number] #### [facility] [address] [place], [place], [address] Glomerular filtration rate ( GFR) estimation/1.73 sq m using serum, plasma, or whole bOrdered By: Theodore Azevedo on 07-14-2025 GFR/1.73 sq M.predicted among non-blacks MDRD (S/P/Bld) [Vol rate/Area] 90 mL/min/{1.73_m2} >60 [facility] Comment on above: mL/min/1.73m2 CKD-EP I Creatinine Equation (2020) Laboratory - Chemistry and C hemistry - challengeOrdered By: Theodore Azevedo on 07-14-2025 AST [Catalytic activity/Vol] 29 U/L <38 [facility] Magnesiumon 07-14-2025 Magnesium [Mass/Vol] 2.3 mg/dL High 1.5-2.2 [facility] Comment on above: Performed By: #### L [id number], [id number], [id number] #### [facility] [address] [place], [address] Magnesium measurement (mass/ volume)Ordered By: Theodore Azevedo on 07-14-2025 Magnesium (Unsp spec) [Mass/Vol] 2.3 mg/dL High 1.5-2.2 [facility] Potassium measurement (mass/ volume)Ordered By: Theodore Azevedo on 07-14-2025 Potassium (Unsp spec) [Mass/Vol] 4.3 mmol/L 3.3-5.1 [facility] Serum creatinine measurement (mass/volume)Ordered By: Theodore Azevedo on 07-14-2025 Creatinine [Mass/Vol] 0.93 mg/dL 0.70-1.20 [facility] Serum globulin measurementOr dered By: Theodore Azevedo on 07-14-2025 Globulin (S) [Mass/Vol] 2.4 g/dL 2.2-4.2 [facility] Serum glucose measurement (m ass/volume)Ordered By: Theodore Azevedo on 07-14-2025 Glucose [Mass/Vol] 112 mg/dL High 70-99 [facility] Serum or plasma alanine grey otransferase (ALT) measurementOrdered By: Theodore Azevedo on 07-14-2025 ALT [Catalytic activity/Vol] 29 U/L <47 [facility] Serum or plasma albumin rajeev urement (mass/volume)Ordered By: Theodore Azevedo on 07-14-2025 Albumin [Mass/Vol] 4.1 g/dL 3.4-4.8 [facility] Serum or plasma albumin/glob ulin mass ratioOrdered By: Theodore Azevedo on 07-14-2025 Albumin/Globulin [Mass ratio] 1.7 {ratio} 0.9-2.4 [facility] Serum or plasma alkaline reuben sphatase measurementOrdered By: Theodore Azevedo on 07-14-2025 ALP [Catalytic activity/Vol] 78 U/L 40-129 [facility] Serum or plasma calcium rajeev urement (mass/volume)Ordered By: Theodore Azevedo on 07-14-2025 Calcium [Mass/Vol] 9.4 mg/dL 7.6-11.0 [facility] Serum or plasma urea nitroge n measurement (mass/volume)Ordered By: Theodore Azevedo on 07-14-2025 Urea nitrogen [Mass/Vol] 18 mg/dL 4-19 [facility] Sodium levelOrdered By: Chadd Azevedo on 07-14-2025 Sodium [Moles/Vol] 140 mmol/L 133-145 [facility] TSH DL <= 0.005 mIU/L QnOrde red By: Theodore Azevedo on 07-14-2025 TSH Qn 1.840 uIU/mL 0.300-4.200 [facility] Thyroid Stim Hormone (TSH)on 07-14-2025 TSH 1.840 uIU/mL Normal 0.300-4.200 [facility] Comment on above: Performed By: #### L 501.9542, L501.5200, L500.4050 #### [facility] [address] [place], [address] Total proteinOrdered By: Justice Azevedo on 07-14-2025 Protein [Mass/Vol] 6.5 g/dL 5.9-8.4 [facility] Cardiology Visit Reporton Cardiology Visit Report [facility] [address] [place], [place] [address] OFFICE VISIT Date of Service: 07/06/25 MR#: [id number] Acct: [id number] Name: COCO YIN Rep #: [id number] : 1955 Provider: Dr. Theodore Azevedo MD Age/Sex: 69/M Location[place] [facility] [place] Status: Signed HPI HPI History of Present Illness Details: This gentleman has had an ischemic stroke in the MCA territory last year. He was noted to have moderate right carotid stenosis and subsequently has had carotid endarterectomy done. For the past some time, patient has noticed swelling of his legs. Also complains of shortness of breath with moderate exertion. Denies any orthopnea or PND. Occasional chest discomfort which he describes as sharp lasting a second or 2 only. Denies any palpitations. Occasionally feels lightheaded and dizzy. Patient follows for his carotid artery disease with his vascular surgeon. Holter monitoring was done in April of this year. It showed predominantly normal sinus rhythm. Frequent PACs were noted. Intake Vital Signs 07/06/24 15:06 07/06/25 10:02 Height 6 ft 4 in 6 ft 4 in Weight: 241 lb BMI 29.3 BP 161/92 H Blood Pressure Location Lt brachial Position Sitting Respiration 16 Pulse 71 Pulse Source Monitor Intake Visit Reasons: SOB, DIZZY, LEG SWELLING, CVA Manager [employer] Required: No Accompanied by: Is patient in pain?: No Allergies bupropion (From Wellbutrin) Allergy (Intermediate, Verified 07/06/25 10:03) Rash Medications ???Medication ???Instructions ???Recorded ???Confirmed ???Type aspirin 81 mg tablet,delayed 81 mg PO DAILY BLOOD THINNER #30 0 06/08/24 07/06/25 Rx release (Анна Low Dose Aspirin) tabs folic acid 1 mg tablet 1 mg PO BREAKFAST SUPPLEMENT 1 07/06/25 Rx month #30 tabs rosuvastatin 40 mg tablet 40 mg PO DAILY CHOLESTEROL 1 month 06/08/24 07/06/25 Rx #30 tabs thiamine HCl (vitamin B1) 100 mg 100 mg PO DAILYCM SUPPLEMENT 30 07/06/25 Rx tablet days #30 tabs hydrochlorothiazide 12.5 mg capsule 12.5 mg PO QDAY 06/24/25 History cholecalciferol (vitamin D3) 50 50 mcg PO QDAY 07/06/25 07/06/25 H istory mcg (2,000 unit) capsule Ejection fraction %: 65 Have you fallen in the past year?: Yes PFSH Medical History (Updated 07/06/25 @ 10:[address] Theodore Azevedo MD) Folic acid deficiency BPH (benign prostatic hyperplasia) Vertigo Bilateral lower extremity edema Irregular heart rhythm Wears dentures Wears glasses High cholesterol Back pain Stroke/cerebrovascul ar accident Gastric reflux Smoker Numbness History of echocardiogram Acute ischemic right MCA stroke Bone tumor Hypercholesteremia HTN (hypertension) Surgical History (Updated 07/06/25 @ 10:11 by Gilda Moralez LPN) History of surgery History of bone graft Family History Other Diabetes Heart disease Social History Smoking Status: Former smoker ROS Const Const: Positive for fatigue; Negative for weakness Eyes Eyes: Negative for change in vision ENT ENT: Positive for dizziness and balance problems Cardio Chest Pain: Yes Frequency: weekly (every other day) Character: other (pinching) Location: left chest Duration: brief Palpitations: No Edema: Bilateral (improved since starting hctz) Resp Respiratory: Positive for SOB with activity; Negative for SOB at rest or SOB orthopnea SOB lying down GI GI: Negative nausea or heartburn Musc Musc: Positive for balance problems Neuro Neuro: Positive for dizziness; Negative for lightheadedness, near syncope, syncope or weakness Endo Endo: Positive for fatigue Cardiology Exam Const Appearance: comfortable and no acute distress Nutritional Appearance: well nourished Neck Neck: no JVD Carotids: Negative bruit Chest Auscultation: Bilateral: Clear to Auscultation Cardio Rate: regular rate Rhythm: regular rhythm Heart sounds: S1 normal and S2 normal Neuro General: patient alert, patient awake and patient oriented x3 Extremities Lower Extremity Edema: +2: Bilateral Supplemental Info Supplemental Information Diagnostics: Electrocardiogram Echocardiogram Chest X-Ray Carotid Duplex Past Visits: Cardiology Visit Today Assessment and Plan Assessment and Plan (1) Bilateral lower extremity edema: Status: Chronic Plan: Check echocardiogram. Discontinue hydrochlorothiazide. Start on furosemide 40 mg once daily. K-Dur 20 milliequivalent daily. Check blood workup in 1 week. (2) Dyspnea on exertion: Status: Chronic Plan: Check echocardiogram. Check Lexiscan stress Myoview. (3) PAC (premature atria (more content not included)... Normal [facility] CBC (INCLUDES DIFF/PLT)on Basophils (Bld) [#/Vol] 0.067 10*3/uL Normal 0-200 [facility] Comment on above: Performed By: #### 1 0231, 6399 #### [facility] [place] [address] [employer]: Derik Mensah MD Basophils/100 WBC (Bld) 1.0 % Normal [facility] Comment on above: Performed By: #### 1 0231, 6399 #### [facility] [place] [address] [employer]: Derik Mensah MD Eosinophils (Bld) [#/Vol] 0.08 10*3/uL Normal 15-500 [facility] Comment on above: Performed By: #### 1 0231, 6399 #### [facility] [place] [address] [employer]: Derik Mensah MD Eosinophils/100 WBC (Bld) 1.2 % Normal [facility] Comment on above: Performed By: #### 1 0231, 6399 #### [facility] [place] [address] [employer]: Derik Mensah MD Erythrocyte distribution width (RBC) [Ratio] 13.0 % Normal 11.0-15.0 [facility] Comment on above: Performed By: #### 1 0231, 6399 #### [facility] [place] [address] [employer]: Derik Mensah MD Hematocrit (Bld) [Volume fraction] 48.0 % Normal 38.5-50.0 [facility] Comment on above: Performed By: #### 1 0231, 6399 #### [facility] [place] [address] [employer]: Derik Mensah MD Hemoglobin (Bld) [Mass/Vol] 16.1 g/dL Normal 13.2-17.1 [facility] Comment on above: Performed By: #### 1 023, 6399 #### [facility] [place] [address] [employer]: Derik Mensah MD Lymphocytes (Bld) [#/Vol] 1.186 10*3/uL Normal 850-3900 [facility] Comment on above: Performed By: #### 1 023, 6399 #### [facility] [place] [address] [employer]: Derik Mensah MD Lymphocytes/100 WBC (Bld) 17.7 % Normal [facility] Comment on above: Performed By: #### 1 023, 6399 #### [facility] [place] [address] [employer] Pilot: Derik Mensah MD MCH (RBC) [Entitic mass] 34.2 pg High 27.0-33.0 [facility] Comment on above: Performed By: #### 1 023, 6399 #### [facility] [place] [address] [employer] Pilot: Derik Mensah MD MCHC (RBC) [Mass/Vol] 33.5 g/dL Normal 32.0-36.[address] [facility] Comment on above: Result Comment: For adults, a slight decrease in the calculated MCHC value (in the range of 30 to 32 g/dL) is most likely not clinically significant; however, it should be interpreted with caution in correlation with other red cell parameters and the patient's clinical condition. Performed By: #### 1 0231, 6399 #### [facility] [place] [address] [employer]: Derik Mensah MD MCV (RBC) [Entitic vol] 101.9 fL High 80.0-100.0 [facility] Comment on above: Performed By: #### 1 0231, 6399 #### [facility] [place] [address] [employer] Pilot: Derik Mensah MD Monocytes (Bld) [#/Vol] 0.603 10*3/uL Normal 200-950 [facility] Comment on above: Performed By: #### 1 0231, 6399 #### [facility] [place] [address] [employer] Pilot: Derik Mensah MD Monocytes/100 WBC (Bld) 9.0 % Normal [facility] Comment on above: Performed By: #### 1 0231, 6399 #### [facility] [place] [address] [employer] Pilot: Derik Mensah MD Neutrophils (Bld) [#/Vol] 4.764 10*3/uL Normal 0997-4823 [facility] Comment on above: Performed By: #### 1 0231, 6399 #### [facility] [place] [address] [employer] Pilot: Derik Mensah MD Neutrophils/100 WBC (Bld) 71.1 % Normal [facility] Comment on above: Performed By: #### 1 0231, 6399 #### [facility] [place] [address] [employer] Pilot: Derik Mensah MD Platelet mean volume (Bld) [Entitic vol] 10.5 fL Normal 7.5-12.5 [facility] Comment on above: Performed By: #### 1 0231, 6399 #### [facility] [place] [address] [employer] Pilot: Derik Mensah MD Platelets (Bld) [#/Vol] 175 10*3/uL Normal 140-400 [facility] Comment on above: Performed By: #### 1 0231, 6399 #### [facility] of [address], [address] [place] [address] Forest[employer] Pilot: Derik Mensah MD RBC (Bld) [#/Vol] 4.71 10*6/uL Normal 4.20-5.80 [facility] Comment on above: Performed By: #### 1 0231, 6399 #### [facility] of [address], [address] [place] [address] [employer] Pilot: Derik Mensah MD WBC (Bld) [#/Vol] 6.7 10*3/uL Normal 3.8-10.8 [facility] Comment on above: Performed By: #### 1 0231, 6399 #### [facility] [place] [address] [employer] Pilot: Derik Mensah MD [facility] 05-03-2025 Albumin [Mass/Vol] 4.2 g/dL Normal 3.6-5.1 [facility] Comment on above: Performed By: #### 1 0231, 6399 #### [facility] [place] [address] [employer] Pilot: Derik Mensah MD Albumin/Globulin [Mass ratio] 1.8 {ratio} Normal 1.0-2.5 [facility] Comment on above: Performed By: #### 1 0231, 6399 #### [facility] [place] [address] [employer] Pilot: Derik Mensah MD ALP [Catalytic activity/Vol] 85 U/L Normal 35-144 [facility] Comment on above: Performed By: #### 1 0231, 6399 #### [facility] [place] [address] [employer] Pilot: Derik Mensah MD ALT [Catalytic activity/Vol] 17 U/L Normal 9-46 [facility] Comment on above: Performed By: #### 1 0231, 6399 #### [facility] of [address], [address] [place] [address] [employer] Pilot: Derik Mensah MD AST [Catalytic activity/Vol] 21 U/L Normal 10-35 [facility] Comment on above: Performed By: #### 1 0231, 6399 #### [facility] of [address], [address] [place] [address] [employer] Pilot: Derik Mensah MD Bilirubin [Mass/Vol] 0.7 mg/dL Normal 0.2-1.2 [facility] Comment on above: Performed By: #### 1 0231, 6399 #### [facility] of [address], [address] [place] [address] Forest[employer] Pilot: Derik Mensah MD BUN/CREATININE RATIO SEE NOTE: Normal 6-22 [facility] Comment on above: Result Comment: Not Reported: BUN and Creatinine are within reference range. Performed By: #### 1 0231, 6399 #### [facility] [address], [address] [place] [address] Forest[employer] Pilot: Derik Mensah MD Calcium [Mass/Vol] 9.3 mg/dL Normal 8.6-10.3 [facility] Comment on above: Performed By: #### 1 0231, 6399 #### [facility] [address], [address] [place] [address] Forest[employer] Pilot: Derik Mensah MD Chloride [Moles/Vol] 102 mmol/L Normal 98-110 [facility] Comment on above: Performed By: #### 1 0231, 6399 #### [facility] [address], [address] [place] [address] Forest[employer] Pilot: Derik Mensah MD CO2 [Moles/Vol] 27 mmol/L Normal 20-32 [facility] Comment on above: Performed By: #### 1 0231, 6399 #### [facility] of [address], [address] [place] [address] Forest[employer] Pilot: Derik Mensah MD Creatinine [Mass/Vol] 0.93 mg/dL Normal 0.70-1.[address] [facility] Comment on above: Performed By: #### 1 0231, 6399 #### [facility] [place] [address] [employer] Pilot: Derik Mensah MD GFR/1.73 sq M.predicted among non-blacks MDRD (S/P/Bld) [Vol rate/Area] 90 mL/min/{1.73_m2} Normal > OR = 60 [facility] Comment on above: Performed By: #### 1 0231, 6399 #### [facility] [place] [address] [employer] Pilot: Derik Mensah MD Globulin (S) [Mass/Vol] 2.4 g/dL Normal 1.9-3.7 [facility] Comment on above: Performed By: #### 1 230, 6399 #### [facility] [place] [address] [employer] Pilot: Derik Mensah MD Glucose [Mass/Vol] 98 mg/dL Normal 65-99 [facility] Comment on above: Result Comment: Fasting reference interval Performed By: #### 1 0231, 6399 #### [facility] [place] [address] Forest[employer] Pilot: Derik Mensah MD Potassium [Moles/Vol] 4.4 mmol/L Normal 3.5-5.[address] [facility] Comment on above: Performed By: #### 1 0231, 6399 #### [facility] [place] [address] [employer] Pilot: Derik Mensah MD Protein [Mass/Vol] 6.6 g/dL Normal 6.1-8.1 [facility] Comment on above: Performed By: #### 1 0231, 6399 #### [facility] [place] [address] [employer] Pilot: Derik Mensah MD Sodium [Moles/Vol] 137 mmol/L Normal 135-146 [facility] Comment on above: Performed By: #### 1 0231, 6399 #### [facility] [address], [address] Forest[employer] Pilot: Derik Mensah MD Urea nitrogen [Mass/Vol] 15 mg/dL Normal 7-25 [facility] Comment on above: Performed By: #### 1 0231, 6399 #### [facility] [address], [address] Forest[employer] Pilot: Derik Mensah MD Laboratory - Chemistry and C hemistry - challengeon 05-02-2025 Albumin [Mass/Vol] 4.2 g/dL Normal 3.6 - 5.1 g/dL [facility], [facility].; [employer] Albumin/Globulin [Mass ratio] 1.8 {ratio} Normal 1.0 - 2.5 [facility], [facility].; [employer] ALP [Catalytic activity/Vol] 85 U/L Normal 35 - 144 U/L [employer], [facility].; [employer] ALT [Catalytic activity/Vol] 17 U/L Normal 9 - 46 U/L [employer] AST [Catalytic activity/Vol] 21 U/L Normal 10 - 35 U/L [employer] [employer], [facility].; [employer] Bilirubin [Mass/Vol] 0.7 mg/dL Normal 0.2 - 1 .2 mg/dL [employer] Calcium [Mass/Vol] 9.3 mg/dL Normal 8.6 - 10. 3 mg/dL [facility] [employer] Chloride [Moles/Vol] 102 mmol/L Normal 98 - 11 0 mmol/L [employer] CO2 [Moles/Vol] 27 mmol/L Normal 20 - 32 mmol/L [place] [employer] [facility] [employer] Creatinine [Mass/Vol] 0.93 mg/dL Normal 0.70 - 1.35 mg/dL [employer] [facility] GFR/1.73 sq M.predicted among non-blacks MDRD (S/P/Bld) [Vol rate/Area] 90 mL/min/{1.73_m2} Normal [facility].; [facility], [facility] Glucose [Mass/Vol] 98 mg/dL Normal 65 - 99 mg/dL [facility], [facility] Potassium [Moles/Vol] 4.4 mmol/L Normal 3.5 - 5.3 mmol/L [facility], [facility] Protein [Mass/Vol] 6.6 g/dL Normal 6.1 - 8.1 g/dL [facility]; [facility], [facility] Sodium [Moles/Vol] 137 mmol/L Normal 135 - 146 mmol/L [facility]; [facility], [facility] Urea nitrogen [Mass/Vol] 15 mg/dL Normal 7 - 25 mg/dL [facility]; [facility], [facility] Laboratory - Hematology and Cell countson 05-02-2025 Basophils (Bld) [#/Vol] 0.067 10*3/uL Normal 0 - 200 {cells/uL} [facility]; [facility] [employer] [facility] Basophils/100 WBC (Bld) 1.0 % Normal [facility]; [facility], [facility] Eosinophils (Bld) [#/Vol] 0.08 10*3/uL Normal 15 - 500 {cells/uL} [facility].; [facility], [facility] Eosinophils/100 WBC (Bld) 1.2 % Normal [facility]; [facility], [facility] Erythrocyte distribution width (RBC) [Ratio] 13.0 % Normal 11.0 - 15.0 % [facility].; [facility], [facility] Hematocrit (Bld) [Volume fraction] 48.0 % Normal 38.5 - 50.0 % [facility]; [facility], [facility] Hemoglobin (Bld) [Mass/Vol] 16.1 g/dL Normal 13.2 - 17.1 g/dL [facility]; [facility] Lymphocytes (Bld) [#/Vol] 1.186 10*3/uL Normal 850 - 3900 {cells/uL} [facility].; [employer], [facility]. Lymphocytes/100 WBC (Bld) 17.7 % Normal [facility].; [place] [employer] MCH (RBC) [Entitic mass] 34.2 pg Abnormal 27.0 - 33.0 pg [facility].; [employer] [employer], [facility]. MCHC (RBC) [Mass/Vol] 33.5 g/dL Normal 32.0 - 36.0 g/dL [facility].; [employer] [employer], [facility]. MCV (RBC) [Entitic vol] 101.9 fL Abnormal 80.0 - 100.0 fL [facility].; [employer] [employer], [facility]. Monocytes (Bld) [#/Vol] 0.603 10*3/uL Normal 200 - 950 {cells/uL} [facility] [employer] [facility].; [employer] Monocytes/100 WBC (Bld) 9.0 % Normal [facility].; [employer] [employer], [facility]. Neutrophils (Bld) [#/Vol] 4.764 10*3/uL Normal 1500 - 7800 {cells/uL} [facility].; [employer] Neutrophils/100 WBC (Bld) 71.1 % Normal [place] [employer] [facility].; [employer] Platelet mean volume (Bld) [Entitic vol] 10.5 fL Normal 7.5 - 12.5 fL [facility], [facility].; [employer] Platelets (Bld) [#/Vol] 175 10*3/uL Normal 140 - 400 [employer] RBC (Bld) [#/Vol] 4.71 10*6/uL Normal 4.20 - 5.8 0 {Million/uL} [place] [employer] [facility], [facility].; [employer] WBC (Bld) [#/Vol] 6.7 10*3/uL Normal 3.8 - 10.8 [employer], [facility]. No Panel Informationon 05-02 BUN/CREATININE RATIO SEE NOTE: Normal 6 - 22 [facility], [facility]. GLOBULIN 2.4 Normal 1.9 - 3.7 [facility].; [facility], [facility]. Carotid Duplex Ultrasoundon 02-16-2025 Carotid Duplex Ultrasound [facility] [address] [place] [address] Carotid Duplex Ultrasound 02/16/25 0902 MR#: [id number] Acct: [id number] Name: COCO YIN ALEN Rep #: [id number] : 1955 69 From: Bry Strange MD Attending Dr: ALLIE Segura Status: REG CLI Ordering Dr: Sona Mitchell Date: 02/16/25 Location: [facility] Sex: M C Admitted: Reason For Study Reason For Study: S/P right CEA Rt. Velocities/BP Lt. Velocities/BP Prox CCA 69.2/15.4 cm/sec. Prox CCA 59.6/16 cm/sec. Mid CCA 70.2/19.2 cm/sec. Mid CCA 64.8/16 cm/sec. Dist CCA 71.1/21.1 cm/sec. Dist CCA 59.6/16 cm/sec. Prox ICA 43.3/9 cm/sec. Prox ICA 77.3/15.7 cm/sec. Mid ICA 85.1/33.5 cm/sec. Mid ICA 103.5/26.2 cm/sec. Dist ICA 90/33.5 cm/sec. Dist ICA 53.2/20 cm/sec. Rt. ICA/CCA = 1.21. Lt. ICA/CCA = 1.60. Prox ECA 239.2/39.7 cm/sec. Prox ECA 101.4/22.3 cm/sec. Rt. Vert. 26.5/8.8 cm/sec. Lt. Vert. 39.7/15.1 cm/sec. Right Extracranial There is homogeneous, smooth atherosclerotic plaque noted in the right common carotid artery. There is heterogeneous, irregular atherosclerotic plaque noted in the right internal carotid artery. There is heterogeneous, irregular atherosclerotic plaque noted in the right external carotid artery. Antegrade flow is noted in the right vertebral artery. Left Extracranial There is homogeneous, smooth atherosclerotic plaque noted in the left common carotid artery. There is heterogeneous, irregular atherosclerotic plaque noted in the left internal carotid artery. There is heterogeneous, irregular atherosclerotic plaque noted in the left external carotid artery. Antegrade flow is noted in the left vertebral artery. Procedure Carotid Duplex [id number]. This is a Carotid Duplex examination using B-mode, color flow and specral Doppler. Exam performed in department. VL/Carotid Duplex Ultrasound Interpretation Summary Mild (<50%) stenosis right extracranial internal carotid. Mild (<50%) stenosis left extracranial internal carotid. Patent and antegrade vertebrals bilaterally. Ordering Physician: Sona Mitchell Referring Physician: Anthony Shine Performed By: Marti Phan Heidi 02/16/25 1700 Date Bry Strange MD CC: ALLIE Segura; ALLIE Hawkins Date Dictated: 02/16/25901 Date Transcribed: 02/16/251699 Flight Radio Officer: Signed Normal [facility] Duplex ultrasound of carotid artery reportOrdered By: Bry Strange on 02-16-2025 Study report [facility] [address] [place] [address] Carotid Duplex Ultrasound 02/16/25901 MR#: [id number] Acct: [id number] Name: COCO YIN ALEN Rep #:[id number] : 1955 69 From: Bry Etienne Attending Dr: ALLIE Segura Stat us: REG CLI Ordering Dr: Sona Mitchell Date: Location: [facility] Sex: M C Admitted: Reason For Study Reason For Study: S/P right CEA Rt. Velocities/BP Lt. Velocities/BP Prox CCA 69.2/15.4 cm/sec. Prox CCA 59.6/16 cm/sec. Mid CCA 70.2/19.2 cm/sec. Mid CCA 64.8/16 cm/sec. Dist CCA 71.1/21.1 cm/sec. Dist CCA 59.6/16 cm/sec. Prox ICA 43.3/9 cm/sec. Prox ICA 77.3/15.7 cm/sec. Mid ICA 85.1/33.5 cm/sec. Mid ICA 103.5/26.2 cm/sec. Dist ICA 90/33.5 cm/sec. Dist ICA 53.2/20 cm/sec. Rt. ICA/CCA = 1.21. Lt. ICA/CCA = 1.60. Prox ECA 239.2/39.7 cm/sec. Prox ECA 101.4/22.3 cm/sec. Rt. Vert. 26.5/8.8 cm/sec. Lt. Vert. 39.7/15.1 cm/sec. Right Extracranial There is homogeneous, smooth atherosclerotic plaque noted in the right common carotid artery. There is heterogeneous, irregular atherosclerotic plaque noted in the right internal carotid artery. There is heterogeneous, irregular atherosclerotic plaque noted in the right external carotid artery. Antegrade flow is noted in the right vertebral artery. Left Extracranial There is homogeneous, smooth atherosclerotic plaque noted in the left common carotid artery. There is heterogeneous, irregular atherosclerotic plaque noted in the left internal carotid artery. There is heterogeneous, irregular atherosclerotic plaque noted in the left external carotid artery. Antegrade flowis noted in the left vertebral artery. Procedure Carotid Duplex [id number]. This is a Carotid Duplex examination using B-mode, color flow and specral Doppler. Exam performed in department. VL/Carotid Duplex Ultrasound Interpretation Summary Mild (<50%) stenosis right extracranial internal carotid. Mild (<50%) stenosis left extracranial internal carotid. Patent and antegrade vertebrals bilaterally. Ordering Physician: Sona Mitchell Referring Physician: Anthony Shine Performed By: Marti Phan T 02/16/25 170 Date _ Bry Strange MD CC: ALLIE Segura; ALLIE Hawkins ~ Date Dictated: 02/16/25901 Date Transcribed: 02/16/251699 Flight Radio Officer: Signed [facility] Work Phone: FOLATE, SERUMon 01-13-2025 Folate [Mass/Vol] ng/mL Normal [facility] Comment on above: Result Comment: Refe rence Range Low: <3.4 Borderline: 3.4-5.4 Normal: >5.4 Performed By: #### 4 66, 177 #### [facility] [address], [address] [place], [place] [id number] [employer]: Derik Mensah MD VITAMIN B12on 01-13-2025 Cobalamin (Vitamin B12) [Mass/Vol] 356 pg/mL Normal 200-1100 [facility] Comment on above: Result Comment: Please Note: Although the reference range for vitamin B12 is 200-1100 pg/mL, it has been reported that between 5 and 10% of patients with values between 200 and 400 pg/mL may experience neuropsychiatric and hematologic abnormalities due to occult B12 deficiency; less than 1% of patients with values above 400 pg/mL will have symptoms. Performed By: #### 4 66, 612 #### [facility] [address] , [address] [place], [place] [id number] Forestry Pilot: Derik Mensah MD Laboratory - Chemistry and C hemistry - challengeon 01-12-2025 Cobalamin (Vitamin B12) [Mass/Vol] 356 pg/mL Normal 200 - 1100 pg/mL [facility] Folate [Mass/Vol] ng/mL Normal [facility], [facility] CBC (INCLUDES DIFF/PLT)on Basophils (Bld) [#/Vol] 0.047 10*3/uL Normal 0-200 [facility] Comment on above: Performed By: #### 7 600, 84602, 6399 #### [facility] of [address], [address] [place] [address] Forest[employer] Pilot: Derik Mensah MD Basophils/100 WBC (Bld) 0.7 % Normal [facility] Comment on above: Performed By: #### 7 600, 21664, 6399 #### [facility] [place] [address] [employer] Pilot: Derik Mensah MD Eosinophils (Bld) [#/Vol] 0.087 10*3/uL Normal 15-500 [facility] Comment on above: Performed By: #### 7 600, 89303, 6399 #### [facility] of [place] [address] Forest[employer] Pilot: Derik Mensah MD Eosinophils/100 WBC (Bld) 1.3 % Normal [facility] Comment on above: Performed By: #### 7 600, 57999, 6399 #### [facility] [place] [address] [employer] Pilot: Derik Mensah MD Erythrocyte distribution width (RBC) [Ratio] 13.7 % Normal 11.0-15.0 [facility] Comment on above: Performed By: #### 7 600, 34901, 6399 #### [facility] of [place] [address] Forest[employer] Pilot: eDrik Mensah MD Hematocrit (Bld) [Volume fraction] 48.4 % Normal 38.5-50.0 [facility] Comment on above: Performed By: #### 7 600, 64260, 6399 #### [facility] [address] [place] [address] Forest[employer] Pilot: Derik Mensah MD Hemoglobin (Bld) [Mass/Vol] 16.5 g/dL Normal 13.2-17.1 [facility] Comment on above: Performed By: #### 7 600, 06829, 6399 #### [facility] [place] [address] [employer] Pilot: Derik Mensah MD Lymphocytes (Bld) [#/Vol] 1.434 10*3/uL Normal 850-3900 [facility] Comment on above: Performed By: #### 7 600, 65184, 6399 #### [facility] of [place] [address] Forest[employer] Pilot: Derik Mensah MD Lymphocytes/100 WBC (Bld) 21.4 % Normal [facility] Comment on above: Performed By: #### 7 600, 59863, 6399 #### [facility] of [place] [address] Forest[employer] Pilot: Derik Mensah MD MCH (RBC) [Entitic mass] 35.2 pg High 27.0-33.0 [facility] Comment on above: Performed By: #### 7 600, 96537, 6399 #### [facility] of [place] [address] Forest[employer] Pilot: Derik Mensah MD MCHC (RBC) [Mass/Vol] 34.1 g/dL Normal 32.0-36.[address] [facility] [address] [facility] Comment on above: Result Comment: For adults, a slight decrease in the calculated MCHC value (in the range of 30 to 32 g/dL) is most likely not clinically significant; however, it should be interpreted with caution in correlation with other red cell parameters and the patient's clinical condition. Performed By: #### 7 600, 75238, 6399 #### [facility] of [place] [address] Forest[employer] Pilot: Derik Mensah MD MCV (RBC) [Entitic vol] 103.2 fL High 80.0-100.0 [facility] Comment on above: Performed By: #### 7 600, 95312, 6399 #### [facility] of [place] [address] Forest[employer] Pilot: Derik Mensah MD Monocytes (Bld) [#/Vol] 0.503 10*3/uL Normal 200-950 [facility] Comment on above: Performed By: #### 7 600, , 6399 #### [facility] of [place] [address] Forest[employer] Pilot: Derik Mensah MD Monocytes/100 WBC (Bld) 7.5 % Normal [facility] Comment on above: Performed By: #### 7 600, , 6399 #### [facility] of [place] [address] Forest[employer] Pilot: Derik Mensah MD Neutrophils (Bld) [#/Vol] 4.63 10*3/uL Normal 1511-3382 [facility] Comment on above: Performed By: #### 7 600, 97630, 6399 #### [facility] of [place] [address] Forest[employer] Pilot: Derik Mensah MD Neutrophils/100 WBC (Bld) 69.1 % Normal [facility] Comment on above: Performed By: #### 7 600, , 6399 #### [facility] of [place] [address] Forest[employer] Pilot: Derik Mensah MD Platelet mean volume (Bld) [Entitic vol] 10.8 fL Normal 7.5-12.5 [facility] Comment on above: Performed By: #### 7 600, 87721, 6399 #### [facility] of [place] [address] Forest[employer] Pilot: Derik Mensah MD Platelets (Bld) [#/Vol] 176 10*3/uL Normal 140-400 [facility] Comment on above: Performed By: #### 7 600, 54391, 6399 #### [facility] of [address], [address] [place] [address] Forest[employer] Pilot: Derik Mensah MD RBC (Bld) [#/Vol] 4.69 10*6/uL Normal 4.20-5.80 [facility] Comment on above: Performed By: #### 7 600, 33429, 6399 #### [facility] of [address], [address] [place] [address] Forestry Pilot: Derik Mensah MD WBC (Bld) [#/Vol] 6.7 10*3/uL Normal 3.8-10.8 [facility] Comment on above: Performed By: #### 7 600, 31407, 6399 #### [facility] of [place] [address] Forest[employer] Pilot: Derik Mensah MD [facility] 01-04-2025 Albumin [Mass/Vol] 4.1 g/dL Normal 3.6-5.1 [facility] Comment on above: Performed By: #### 7 600, 78002, 6399 #### [facility] of [place] [address] Forest[employer] Pilot: Derik Mensah MD Albumin/Globulin [Mass ratio] 2.1 {ratio} Normal 1.0-2.5 [facility] Comment on above: Performed By: #### 7 600, 23441, 6399 #### [facility] of [place] [address] Forest[employer] Pilot: Derik Mensah MD ALP [Catalytic activity/Vol] 83 U/L Normal 35-144 [facility] Comment on above: Performed By: #### 7 600, 99702, 6399 #### [facility] of [place] [address] [employer] Pilot: Derik Mensah MD ALT [Catalytic activity/Vol] 19 U/L Normal 9-46 [facility] Comment on above: Performed By: #### 7 600, 37235, 6399 #### [facility] of [place] [id number] Forest[employer] Pilot: Derik Mensah MD AST [Catalytic activity/Vol] 17 U/L Normal 10-35 [facility] Comment on above: Performed By: #### 7 600, 72245, 6399 #### [facility] of [place] [address] [employer] Pilot: Derik Mensah MD Bilirubin [Mass/Vol] 0.9 mg/dL Normal 0.2-1.2 [facility] Comment on above: Performed By: #### 7 600, 27881, 6399 #### [facility] of [address], [address] [place] [address] Forest[employer] Pilot: Derik Mensah MD BUN/CREATININE RATIO SEE NOTE: Normal 6-22 [facility] Comment on above: Result Comment: Not Reported: BUN and Creatinine are within reference range. Performed By: #### 7 600, 31750, 6399 #### [facility] of [address], [address] [place] [address] Forest[employer] Pilot: Derik Mensah MD Calcium [Mass/Vol] 9.4 mg/dL Normal 8.6-10.3 [facility] Comment on above: Performed By: #### 7 600, 96368, 6399 #### [facility] of [place] [address] Forest[employer] Pilot: Derik Mensah MD Chloride [Moles/Vol] 103 mmol/L Normal 98-110 [facility] Comment on above: Performed By: #### 7 600, 27746, 6399 #### [facility] of [place] [address] [employer] Pilot: Derik Mensah MD CO2 [Moles/Vol] 27 mmol/L Normal 20-32 [facility] Comment on above: Performed By: #### 7 600, 79112, 6399 #### [facility] of [place] [address] Forest[employer] Pilot: Derik Mensah MD Creatinine [Mass/Vol] 0.96 mg/dL Normal 0.70-1.[address] [facility] Comment on above: Performed By: #### 7 600, 62598, 6399 #### [facility] [place] [address] Forest[employer] Pilot: Derik Mensah MD GFR/1.73 sq M.predicted among non-blacks MDRD (S/P/Bld) [Vol rate/Area] 87 mL/min/{1.73_m2} Normal > OR = 60 [facility] Comment on above: Performed By: #### 7 600, 21109, 6399 #### [facility] [address], [address] [place] [address] Forest[employer] Pilot: Derik Mensah MD Globulin (S) [Mass/Vol] 2.0 g/dL Normal 1.9-3.7 [facility] Comment on above: Performed By: #### 7 600, 31174, 6399 #### [facility] [place] [address] Forest[employer] Pilot: Derik Mensah MD Glucose [Mass/Vol] 117 mg/dL High 65-99 [facility] Comment on above: Result Comment: Fasting reference interval For someone without known diabetes, a glucose value between 100 and 125 mg/dL is consistent with prediabetes and should be confirmed with a follow-up test. Performed By: #### 7 600, 55946, 6399 #### [facility] [place] [address] Forest[employer] Pilot: Derik Mensah MD Potassium [Moles/Vol] 4.6 mmol/L Normal 3.5-5.[address] [facility] Comment on above: Performed By: #### 7 600, 68946, 6399 #### [facility] [place] [address] Forest[employer] Pilot: Derik Mensah MD Protein [Mass/Vol] 6.1 g/dL Normal 6.1-8.1 [facility] Comment on above: Performed By: #### 7 600, 12015, 6399 #### [facility] [address] [place] [address] Forest[employer] Pilot: Derik Mensah MD Sodium [Moles/Vol] 138 mmol/L Normal 135-146 [facility] Comment on above: Performed By: #### 7 600, 89072, 6399 #### [facility] of [address], [address] [place] [address] Forest[employer] Pilot: Derik Mensah MD Urea nitrogen [Mass/Vol] 12 mg/dL Normal 7-25 [facility] Comment on above: Performed By: #### 7 600, 50505, 6399 #### [facility] of [address], [address] [place] [address] Forest[employer] Pilot: Derik Mensah MD LIPID PANEL, [facility] - Cholesterol [Mass/Vol] 142 mg/dL Normal <200 [facility] Comment on above: Performed By: #### 7 600, 14193, 6399 #### [facility] of [address], [address] [place] [address] Forest[employer] Pilot: Derik Mensah MD Cholesterol in HDL [Mass/Vol] 50 mg/dL Normal > OR = 40 [facility] Comment on above: Performed By: #### 7 600, 05325, 6399 #### [facility] [place] [address] Forest[employer] Pilot: Derik Mensah MD Cholesterol in LDL [Mass/Vol] 68 mg/dL Normal [facility] Comment on above: Result Comment: Refe rence range: <100 Desirable range <100 mg/dL for primary prevention; <70 mg/dL for patients with CHD or diabetic patients with > or = 2 CHD risk factors. LDL-C is now calculated using the Mumtaz calculation, which is a validated novel method providing better accuracy than the Friedewald equation in the estimation of LDL-C. Sonny GONZALEZ et al. OUMAR. 2013;310(19): 8987-8976 (http://education.DraftDay.hurleypalmerflatt/faq/PIS120) Performed By: #### 7 600, 47544, 6399 #### [facility] of [address] [place] [address] Forest[employer] Pilot: Derik Mensah MD Cholesterol.total/Chol esterol in HDL [Mass ratio] 2.8 {ratio} Normal <5.0 [facility] Comment on above: Performed By: #### 7 600, 81128, 6399 #### [facility] [place] [address] Forest[employer] Pilot: Derik Mensah MD NON HDL CHOLESTEROL 92 mg/dL (calc) Normal <130 [facility] Comment on above: Result Comment: For patients with diabetes plus 1 major ASCVD risk factor, treating to a non-HDL-C goal of <100 mg/dL (LDL-C of <70 mg/dL) is considered a therapeutic option. Performed By: #### 7 600, 45308, 6399 #### [facility] [place] [address] Forest[employer] Pilot: Derik Mensah MD Triglyceride [Mass/Vol] 153 mg/dL High <150 [facility] Comment on above: Performed By: #### 7 600, 71085, 6399 #### [facility] [place] [address] Forest[employer] Pilot: Derik Mensah MD PSA, TOTALon 01-04-2025 PSA, TOTAL 1.27 ng/mL Normal < OR = 4.00 [facility] Comment on above: Result Comment: The total PSA value from this assay system is standardized against the WHO standard. The test result will be approximately 20% lower when compared to the equimolar-standardized total PSA (Tyshawn Candace). Comparison of serial PSA results should be interpreted with this fact in mind. This test was performed using the Siemens chemiluminescent method. Values obtained from different assay methods cannot be used interchangeably. PSA levels, regardless of value, should not be interpreted as absolute evidence of the presence or absence of disease. Performed By: #### 7 600, 65422, 6399 #### [facility] [place] [address] Forest[employer] Pilot: Derik Mensah MD Laboratory - Chemistry and C hemistry - challengeon 01-03-2025 Albumin [Mass/Vol] 4.1 g/dL Normal 3.6 - 5.1 g/dL [facility] Albumin/Globulin [Mass ratio] 2.1 {ratio} Normal 1.0 - 2.5 [facility].; [facility], [facility] ALP [Catalytic activity/Vol] 83 U/L Normal 35 - 144 U/L [facility].; [facility], [facility]. ALT [Catalytic activity/Vol] 19 U/L Normal 9 - 46 U/L [facility].; [facility], [facility]. AST [Catalytic activity/Vol] 17 U/L Normal 10 - 35 U/L [facility] Bilirubin [Mass/Vol] 0.9 mg/dL Normal 0.2 - 1 .2 mg/dL [facility].; [facility], [facility] Calcium [Mass/Vol] 9.4 mg/dL Normal 8.6 - 10. 3 mg/dL [facility].; [facility], [facility]. Chloride [Moles/Vol] 103 mmol/L Normal 98 - 11 0 mmol/L [facility].; [facility], [facility]. Cholesterol [Mass/Vol] 142 mg/dL Normal [facility]; [facility], [facility] Cholesterol in HDL [Mass/Vol] 50 mg/dL Normal [facility].; [facility], [facility] Cholesterol in LDL [Mass/Vol] 68 mg/dL Normal [facility] CO2 [Moles/Vol] 27 mmol/L Normal 20 - 32 mmol/L [facility].; [facility], [facility] Creatinine [Mass/Vol] 0.96 mg/dL Normal 0.70 - 1.35 mg/dL [facility].; [facility], [facility]. GFR/1.73 sq M.predicted among non-blacks MDRD (S/P/Bld) [Vol rate/Area] 87 mL/min/{1.73_m2} Normal [facility] [place] [employer] [facility], [facility] Glucose [Mass/Vol] 117 mg/dL Abnormal 65 - 99 mg/dL [facility], [facility]. Potassium [Moles/Vol] 4.6 mmol/L Normal 3.5 - 5.3 mmol/L [facility].; [facility], [facility] Protein [Mass/Vol] 6.1 g/dL Normal 6.1 - 8.1 g/dL [facility].; [facility], [facility] Sodium [Moles/Vol] 138 mmol/L Normal 135 - 146 mmol/L [facility].; [facility], [facility] Triglyceride [Mass/Vol] 153 mg/dL Abnormal [facility]; [facility], [facility] Urea nitrogen [Mass/Vol] 12 mg/dL Normal 7 - 25 mg/dL [facility].; [facility], [facility] Laboratory - Hematology and Cell countson 01-03-2025 Basophils (Bld) [#/Vol] 0.047 10*3/uL Normal 0 - 200 {cells/uL} [facility].; [facility], [facility]. Basophils/100 WBC (Bld) 0.7 % Normal [facility]; [facility], [facility] Eosinophils (Bld) [#/Vol] 0.087 10*3/uL Normal 15 - 500 {cells/uL} [facility].; [facility], [facility] Eosinophils/100 WBC (Bld) 1.3 % Normal [facility]; [facility], [facility] Erythrocyte distribution width (RBC) [Ratio] 13.7 % Normal 11.0 - 15.0 % [facility].; [facility], [facility] Hematocrit (Bld) [Volume fraction] 48.4 % Normal 38.5 - 50.0 % [facility].; [facility], [facility] Hemoglobin (Bld) [Mass/Vol] 16.5 g/dL Normal 13.2 - 17.1 g/dL [facility].; [facility], [facility] Lymphocytes (Bld) [#/Vol] 1.434 10*3/uL Normal 850 - 3900 {cells/uL} [facility].; [facility], [facility]. Lymphocytes/100 WBC (Bld) 21.4 % Normal [facility].; [facility], [facility]. MCH (RBC) [Entitic mass] 35.2 pg Abnormal 27.0 - 33.0 pg [facility], [facility].; [place] [employer], [facility]. MCHC (RBC) [Mass/Vol] 34.1 g/dL Normal 32.0 - 36.0 g/dL [facility], [facility].; [place] [employer], [facility]. MCV (RBC) [Entitic vol] 103.2 fL Abnormal 80.0 - 100.0 fL [facility], [facility].; [facility] [employer], [facility]. Monocytes (Bld) [#/Vol] 0.503 10*3/uL Normal 200 - 950 {cells/uL} [facility], [facility].; [place] [employer] Monocytes/100 WBC (Bld) 7.5 % Normal [facility].; [facility], [facility]. Neutrophils (Bld) [#/Vol] 4.63 10*3/uL Normal 1500 - 7800 {cells/uL} [facility].; [place] [employer], [facility]. Neutrophils/100 WBC (Bld) 69.1 % Normal [facility].; [place] [employer], [employer]. Platelet mean volume (Bld) [Entitic vol] 10.8 fL Normal 7.5 - 12.5 fL [facility], [facility].; [place] [employer], [facility]. Platelets (Bld) [#/Vol] 176 10*3/uL Normal 140 - 400 [facility].; [place] [employer] RBC (Bld) [#/Vol] 4.69 10*6/uL Normal 4.20 - 5.8 0 {Million/uL} [facility] [employer] [facility].; [place] [employer], [employer]. WBC (Bld) [#/Vol] 6.7 10*3/uL Normal 3.8 - 10.8 [facility] [employer], [employer] [place] [employer], [facility]. No Panel Informationon 01-03 BUN/CREATININE RATIO SEE NOTE: Normal 6 - 22 [facility].; [place] [employer] CHOL/HDLC RATIO 2.8 Normal [facility]. GLOBULIN 2.0 Normal 1.9 - 3.7 [facility].; [facility], [facility]. NON HDL CHOLESTEROL 92 Normal [facility].; [facility], [facility]. PSA, TOTAL 1.27 ng/mL Normal [facility].; [facility]. ERRONEOUSENCon 10-13-2018 ERRONEOUSENC [id number] Victor MCoco 1955 M * Clinical document posted in Error * Encounter Type Conversion History User Instant Changed From Changed To RAFAEL MATIAS Oct 15, 2018 11* Hospital En* Erroneous* Normal [facility] XR Hip 2-3 Views Lefton 05-24 XR Hip 2-3 Views Left Exam Date/Time:06/20/2017 13:53 EDTReason for Exam:injury of left hipReportEXAMINATION : 3 views left hip.COMPARISON: None.INDICATION: Injury left hip. Fell last September and still having pain.FINDINGS:3 views reveal no evidence of fracture. Contour of the femoral head and neck isnormal. Acetabular joint space is preserved. No major arthritic findings. Leftsacroiliac joint is patent.I identify no evidence of blastic or lytic bone disease.IMPRESSION:1 . Etiology for left hip pain is not proven on this study.2. Radiographically the left hip appears within limits of normal for the age.No acute or aggressive process. FINAL REPORT Dictated: 06/20/2017 3:37 pm Jj Butt DO JSigned (Electronic Signature): 06/20/2017 3:37 pmSigned by: Jj Butt DO Technologist: HLR Normal [facility] Vital Signs Date Time Vital Sign Value Performing Clinician Saira perales 07-06-2025 10:02040 Body height 193.04 cm Anthony KELLEY Work Phone: [facility] 07-06-2025 10:02-0400 Body mass index (BMI) [Ratio] 29.3 kg/m2 Anthony KELLEY Work Phone: [facility] 07-06-2025 10:02-0400 Body weight 109.31 kg Luke Edith PA Work Phone: [facility] 07-06-2025 10:02-0400 Diastolic blood pressure 92 mm[Hg] Luke Edith PA Work Phone: [facility] 07-06-2025 10:02-0400 Heart rate 71 /min Luke Edith PA Work Phone: [facility] 07-06-2025 10:02-0400 Respiratory rate 16 /min Luke Edith PA Work Phone: [facility] 07-06-2025 10:02-0400 Systolic blood pressure 161 mm[Hg] Luke Edith PA Work Phone: [facility] 05-02-2025 09:12-0400 Body height 189.23 cm Katherine Chavez [facility] [employer] [facility], [facility].; [employer] [facility], [facility]. 05-02-2025 09:12-0400 Body mass index (BMI) [Ratio] 30.6 kg/m2 Katherine [facility], [facility]. 05-02-2025 09:12-0400 Body surface area Derived from formula 2.37 m2 Katherine Mely BergerScott [facility].; [facility], [facility]. 05-02-2025 09:120400 Body weight 109.59 kg Katherine Chavez [place] [employer] [facility], Inc.; [employer] [facility], [facility]. 05-02-2025 09:12-0400 Diastolic blood pressure 84 mm[Hg] Katherine Chavez [facility] [employer] [facility], [facility]. Comment on above: Patient Position: Sitting; Cuff Location : Left Arm; Cuff Size: Standard 05-02-2025 09:12-0400 Heart rate 68 /min Katherine Chavez [employer], [employer]. Comment on above: Pattern: Regular 05-02-2025 09:12-0400 Systolic blood pressure 149 mm[Hg] [facility], [facility].; [facility], [facility]. Comment on above: Patient Position: Sitting; Cuff Location : Left Arm; Cuff Size: Standard 01-12-2025 15:07-0400 Body height 189.23 cm Luba Weaver [address] [facility], Inc.; [facility], [facility]. 01-12-2025 15:07-0400 Body mass index (BMI) [Ratio] 29.13 kg/m2 Luba Weaver TRAIN DIRECTOR [facility], [facility].; [facility], [facility]. 01-12-2025 15:07-0400 Body surface area Derived from formula 2.32 m2 Luba Weaver TRAIN DIRECTOR [facility], [facility].; [facility], [facility]. 01-12-2025 15:07-0400 Body weight 104.33 kg Luba Weaver TRAIN DIRECTOR [facility], Inc.; [facility], [facility]. 01-12-2025 15:07-0400 Diastolic blood pressure 72 mm[Hg] Luba Weaver TRAIN DIRECTOR [facility], [facility].; [facility], [employer]. Comment on above: Patient Position: Sitting; Cuff Location : Left Arm; Cuff Size: Standard 01-12-2025 15:07-0400 Heart rate 73 /min Luba Weaver TRAIN DIRECTOR [facility], Inc.; [facility] Comment on above: Pattern: Regular 01-12-2025 15:07-0400 Systolic blood pressure 114 mm[Hg] Luba Weaver TRAIN DIRECTOR [facility], [facility], [facility]. Comment on above: Patient Position: Sitting; Cuff Location : Left Arm; Cuff Size: Standard 07-05-2024 10:30-0400 Body height 189.23 cm Wenceslao Bravo TRAIN DIRECTOR [facility], [facility].; [facility], [facility]. 07-05-2024 10:30-0400 Body mass index (BMI) [Ratio] 27.23 kg/m2 Wenceslao Lawrence TRAIN DIRECTOR [facility], [facility]. 07-05-2024 10:30-0400 Body surface area Derived from formula 2.25 m2 Wenceslao Bravo TRAIN DIRECTOR [facility], [facility].; [facility], [facility]. 07-05-2024 10:30-0400 Body weight 97.52 kg Wenceslao Bravo FLORENCIA [facility], [facility].; [facility], [facility]. 07-05-2024 10:30-0400 Diastolic blood pressure 77 mm[Hg] Wenceslao Bravo FLORENCIA [facility], [facility].; [facility], [facility]. Comment on above: Patient Position: Sitting; Cuff Location : Left Arm; Cuff Size: Standard 07-05-2024 10:30-0400 Heart rate 64 /min Wenceslao Bravo FLORENCIA [facility], [facility].; [place] [employer] [facility], [facility]. Comment on above: Pattern: Regular 07-05-2024 10:30-0400 Systolic blood pressure 115 mm[Hg] Wenceslao Bravo TRAIN DIRECTOR [facility], [facility].; [facility], [facility]. Comment on above: Patient Position: Sitting; Cuff Location : Left Arm; Cuff Size: Standard Encounters Encounter Date Encounter Type Care Provider Facility Start: 08-01-2025 ambulatory Anthony Richards ty:[facility] Start: 07-28-2025 End: 07-28-2025 ambulatory [facility] Start: 07-19-2025 ambulatory MATY [facility] Start: 07-14-2025 End: 07-14-2025 ambulatory Theodore Azevedo Facility:[facility] Start: 07-06-2025 End: 07-06-[address] Theodore Azevedo MD -[facility] Work Phone: Start: 07-06-2025 End: 07-06-2025 ambulatory Anthony Shine PA Work Phone: -[facility] Start: 05-11-2025 End: 05-11-2025 [facility] Start: 05-03-2025 End: 05-03-2025 Orders Anthony Shine PA-C Work Phone: [facility] Start: 05-02-2025 Review Luke Hochstetl er PA-C Work Phone: [facility]. Start: 05-02-2025 End: 05-02-2025 Office outpatient visit 25 minutes Luke Edith PA-C Work Phone: [facility]. Start: 02-16-2025 Non-patient / Non-visit Dr. Bry rushing MD -[facility] Start: 02-16-2025 End: 02-16-2025 ambulatory Luke Edith PA Work Phone: [facility] Work Phone: Start: 02-16-2025 End: 02-16-2025 Patient encounter procedure Sona Mitchell PA -[facility] Work Phone: Start: 02-16-2025 End: 02-16-2025 ambulatory Luke Edith Facility:[facility] Start: 01-12-2025 End: 01-13-2025 Office outpatient visit 25 minutes Luke Edith PA-C Work Phone: [facility]. Start: 01-12-2025 Follow-up encounter Luke Hochs tetler PA-C Work Phone: [facility]. Start: 01-03-2025 End: 01-03-2025 Orders Luke Edith PA-C Work Phone: [facility]. Start: 01-03-2025 Review Luke Hochstetl er PA-C Work Phone: [facility]. Start: 12-29-2024 End: 12-29-2024 Orders Luke Edith PA-C Work Phone: [facility]. Start: 12-28-2024 End: 12-28-2024 Historical Summary Luke Edith PA-C Work Phone: [facility]. Start: 10-04-2024 End: 10-04-2024 Orders Luke Edith PA-C Work Phone: [employer] Start: 07-05-2024 End: 07-06-2024 Initial preventive medicine new patient 67yrs&> Jingke Edith PA-C Work Phone: [facility] Start: 07-05-2024 End: 07-06-2024 Patient encounter procedure Wenceslao Bravo LPN [facility] Start: 07-05-2024 Patient encounter procedure Anthony Mossetler PA-C Work Phone: [facility] Start: 10-13-2018 End: 10-13-2018 Emergency department patient visit [facility] Start: 06-20-2017 End: 06-21-2017 [facility] Procedures Date Procedure Procedure Detail Performing Clinician Start: 07-05-2024 End: 07-05-2024 Adv care pln/ no alt dcsn mkr docd or refusal Jingke E Edith PA-C Work Phone: Start: 07-05-2024 End: 07-05-2024 Depression screening Jingke E Edith PA-C Work Phone: Start: 07-05-2024 End: 07-08-2024 Ecg routine ecg w/least 12 lds w/i&r Jingke E Edith PA-C Work Phone: Start: 07-05-2024 End: 07-05-2024 Falls risk assessment documented Luke E Edith PA-C Work Phone: Start: 07-05-2024 End: 07-05-2024 PPPS, subseq visit Jingke Rock VelasquezEdith P A-C Work Phone: Start: 07-05-2024 End: 07-05-2024 Pt falls assess docd 2/> falls/fall w/injury/yr Luke E Edith PA-C Work Phone: Start: 07-05-2024 End: 07-05-2024 Scr dep neg, no plan reqd Luke E Hochste tler PA-C Work Phone: Most Recent Cardio Report Jing Shine PA-C Work Phone: Comment on above: No Cardiology record s 12/28/2024 Most Recent Cardio Report Pia Bergeretler Comment on above: No Cardiology record s 12/28/2024 Plan of Treatment Date Care Activity Detail Author Start: 07-14-2025 Patient encounter procedure Registered Clinical -Laboratory Work Phone: Start: 07-12-2025 Patient encounter procedure Medical; PHYSICAL - annual AWV [employer] Start: 12-Jul-2025 08:30-04:00 BRANDON Shine Appointment Request [employer] Start: 07-06-2025 End: 07-06-2025 Evaluation of diagnostic study results [facility] Start: 05-03-2025 Xtrnl ecg & 48 hr re cord scan stor w/r&i 24 Hr Holter (17178) Start: 03-May-2025 Intent Comments: 48 hour holter [employer]; [facility]. Comment on above: 48 hour holter Start: 05-02-2025 Blood count complete auto&auto difrntl wbc CBC, PLATELETS & AUT DIFF (F) (54507) Start: 02-May-2025 09:32-04:00 Request [employer]; [facility]. Start: 05-02-2025 Comprehensive metabo lic panel CMP w/ GFR* (55688) Start: 02-May-2025 09:32-04:00 Request [employer]; [facility]. Start: 01-12-2025 Cyanocobalamin vitam in b-12 VITAMIN B-12 SERUM (98763) Start: 12-Jan-2025 15:48-04:00 Request [employer]; [facility]. Start: 01-12-2025 Assay of folic acid serum FOLATE (74829) Start: 12-Jan-2025 15:48-04:00 Request [employer]; [employer] Start: 01-12-2025 Patient encounter procedure Medical; EXTENDED RTN - RTN go over labs [employer] Start: 12-Jan-2025 15:30-04:00 BRANDON Shine Appointment Request [facility]. Start: 01-03-2025 Assay of prostate specific antigen total PSA TOTAL (PROSTATE SPECIFIC ANTIGEN) (21344) Start: 03-Jan-2025 15:52-04:00 Request [facility].; [facility] Start: 01-03-2025 Lipid panel LIPID PANEL (8 0061) Start: 03-Jan-2025 15:52-04:00 Request [facility].; [facility]. Start: 01-03-2025 Comprehensive metabo lic panel CMP w/ GFR* (06173) Start: 03-Jan-2025 15:52-04:00 Request [employer]; [facility]. Start: 01-03-2025 Blood count complete auto&auto difrntl wbc CBC, PLATELETS & AUT DIFF (M) (75604) Start: 03-Jan-2025 15:52-04:00 Request [employer]; [facility]. Start: 01-03-2025 Nursing evaluation o f patient and report Medical; Nurse visit - fasting labs--[facility]. Start: 03-Jan-2025 09:10-04:00 PHLEBOTOMY, PHLEBOTOMY Appointment Request [facility]. Start: 01-03-2025 Assay of prostate specific antigen total PSA TOTAL (PROSTATE SPECIFIC ANTIGEN) (84673) Start: 03-Jan-2025 09:08-04:00 Request [facility].; [facility] Start: 01-03-2025 Comprehensive metabo lic panel CMP w/ GFR* (25326) Start: 03-Jan-2025 09:08-04:00 Request [facility].; [facility] Start: 01-03-2025 Lipid panel LIPID PANEL (8 0061) Start: 03-Jan-2025 09:08-04:00 Request [facility].; [employer] Start: 01-03-2025 Blood count complete auto&auto difrntl wbc CBC, PLATELETS & AUT DIFF (M) (74659) Start: 03-Jan-2025 09:08-04:00 Request [facility]; [employer] Start: 07-05-2024 Ecg routine ecg w/le ast 12 lds w/i&r ELECTROCARDIOGRAM WITH INTERPRETATION (76132) Start: 05-Jul-2024 Intent [facility]; [employer] Start: 07-05-2024 Patient encounter procedure Medical; PHYSICAL - phys [employer] Start: 05-Jul-2024 10:50-04:00 BRANDON Shine Appointment Request [facility] [place] Heart Views W str ess and W radionuclide IV [facility] Payers Date Payer Category Payer Medicare [id number] [id number] Self-pay 2024 Unknown [id number] 2017 Unknown 1955 Unknown [id number] [id number] Unknown [id number] 2.16. [id number] Unknown [id number] 2.16. [id number] Unknown [id number] 2.16.8 [id number] Unknown [id number] 2.16.8 [id number] Unknown [id number] 2.16.8 [id number] Social History Date Type Detail Facility Female [employer]; [employer] Work Phone: Tobacco smoking consumption unknown [facility]; [employer] Work Phone: Alcohol Use: Alcohol Use: ; Occasional alcohol use. [facility] C[facility]ine Use Caffeine Use [facility]; [facility] Tobacco Use: Tobacco Use: ; F ormer smoker. [facility]; [facility]. Start: 1955 Male [facility]as[facility] use [facility] Work Phone: Start: 07-07-2024 Ex-smoker [facility] Sex Male [facility] NEGATED: Highlighted row No Social History Information Available No Social History Information Available [facility]; [facility] Work Phone: Medical Equipment Procedure Code Equipment Code Equipment Origin al Text Equipment Identifier Dates Endarterectomy, carotid DRAIN,15FR JARON RND FDA Start: 07-06-2024 Endarterectomy, carotid Collagen haemostatic agent, non-antimicrobial [id number] FDA Start: 07-06-2024 Endarterectomy, carotid Cardiovascular patch, animal-derived ()[id number] FDA Start: 07-06-2024 Endarterectomy, carotid Ligation clip, metallic ()[id number] FDA Start: 07-06-2024 Endarterectomy, carotid Ligation clip, metallic ()[id number] FDA Start: 07-06-2024 Endarterectomy, carotid Ligation clip, metallic ()[id number] FDA Start: 07-06-2024 Endarterectomy, carotid DRAIN,15FR JARON RND FDA Start: 07-06-2024 Progress note 07-06-2025 Note Date & Type Note Facility 07-06-2025 Progress note [facility] Evaluation note Note Date & Type Note Facility Evaluation note No assessment information availa ble [facility] Work Phone: Evaluation note Note Date & Type Note Facility Evaluation note Diagnosis Onset Date Resolution Bilateral lower extremity edema chronic July 06 9:43am Dyslipidemia chronic June 9:43am Dyspnea on exertion chronic Octob er 2024 9:43am History of CVA (cerebrovascular accident) chronic July 06 9:43am HTN (hypertension) chronic Octobe r 2024 9:43am PAC (premature atrial contraction) chronic July 06 9:43am [facility] Work Phone: Progress note Note Date & Type Note Facility Progress note Note Date/Time July 06, 2025 10:40am [facility] [place] [id number] [facility] [place] [address] OFFICE VISIT Date of Service: 07/06/25 MR#: [id number] Acct: [id number] Name: VICTOR MCOCO ALEN Rep #: [id number] : 1955 Provider: Dr. Chadd Azevedo MD Age/Sex: 69/M [place] [facility] Status: Signed HPI HPI History of Present Illness Details: This gentleman has had an ischemic stroke in the [place] territory last year. He was noted to have moderate right carotid stenosis and subsequently has had carotid endarterectomy done. For the past some time, patient has noticed swelling of his legs. Also complains of shortness of breath with moderate exertion. Denies any orthopnea or PND. Occasional chest discomfort which he describes as sharp lasting a second or 2 only. Denies any palpitations. Occasionally feels lightheaded and dizzy. Patient follows for his carotid artery disease with his vascular surgeon. Holter monitoring was done in April of this year. It showed predominantly normal sinus rhythm. Frequent PACs were noted. Intake Vital Signs 07/06/24 15:06 07/06/25 10:02 Height 6 ft 4 in 6 ft 4 in Weight: 241 lb BMI 29.3 BP 161/92 H Blood Pressure Location Lt brachial Position Sitting Respiration 16 Pulse 71 Pulse Source Monitor Intake Visit Reasons: SOB, DIZZY, LEG SWELLING, CVA [employer] Required: No Accompanied by: Is patient in pain?: No Allergies bupropion (From Wellbutrin) Allergy (Intermediate, Verified 07/06/25 10:03) Rash Medications ?Medication ?Instructions ?Recorded ?Confirmed ?Type aspirin 81 mg tablet,delayed 81 mg PO DAILY BLOOD THIN NER #30 06/08/24 07/06/25 Rx release (Анна Low Dose Aspirin) tabs folic acid 1 mg tablet 1 mg PO BREAKFAST SUPPLEMENT 1 06/08/24 07/06/25 Rx month #30 tabs rosuvastatin 40 mg tablet 40 mg PO DAILY CHOLESTEROL 1 month 06/08/24 07/06/25 Rx #30 tabs thiamine HCl (vitamin B1) 100 mg 100 mg PO DAILYCM SUP PLEMENT 30 06/08/24 07/06/25 Rx tablet days #30 tabs hydrochlorothiazide 12.5 mg capsule 12.5 mg PO QDAY 07/06/25 History cholecalciferol (vitamin D3) 50 50 mcg PO QDAY 5 07/06/25 History mcg (2,000 unit) capsule Ejection fraction %: 65 Have you fallen in the past year?: Yes PFSH Medical History (Updated 07/06/25 @ 10:[address] Theodore Azevedo MD) Folic acid deficiency BPH (benign prostatic hyperplasia) Vertigo Bilateral lower extremity edema Irregular heart rhythm Wears dentures Wears glasses High cholesterol Back pain Stroke/cerebrovascular accident Gastric reflux Smoker Numbness History of echocardiogram Acute ischemic right MCA stroke Bone tumor Hypercholesteremia HTN (hypertension) Surgical History (Updated 07/06/25 @ 10:11 by Gilda Moralez LPN) History of surgery History of bone graft Family History Other Diabetes Heart disease Social History Smoking Status: Former smoker ROS Const Const: Positive for fatigue; Negative for weakness Eyes Eyes: Negative for change in vision ENT ENT: Positive for dizziness and balance problems Cardio Chest Pain: Yes Frequency: weekly (every other day) Character: other (pinching) Location: left chest Duration: brief Palpitations: No Edema: Bilateral (improved since starting hctz) Resp Respiratory: Positive for SOB with activity; Negative for SOB at rest or SOB orthopnea\SOB lying down GI GI: Negative nausea or heartburn Musc Musc: Positive for balance problems Neuro Neuro: Positive for dizziness; Negative for lightheadedness, near syncope, syncope or weakness Endo Endo: Positive for fatigue Cardiology Exam Const Appearance: comfortable and no acute distress Nutritional Appearance: well nourished Neck Neck: no JVD Carotids: Negative bruit Chest Auscultation: Bilateral: Clear to Auscultation Cardio Rate: regular rate Rhythm: regular rhythm Heart sounds: S1 normal and S2 normal Neuro General: patient alert, patient awake and patient oriented x3 Extremities Lower Extremity Edema: +2: Bilateral Supplemental Info Supplemental Information Diagnostics: Electrocardiogram Echocardiogram Chest X-Ray Carotid Duplex Past Visits: Cardiology Visit Today Assessment and Plan Assessment and Plan (1) Bilateral lower extremity edema: Status: Chronic Plan: Check echocardiogram. Discontinue hydrochlorothiazide. Start on furosemide 40 mg once daily. K-Dur 20 milliequivalent daily. Check blood workup in 1 week. (2) Dyspnea on exertion: Status: Chronic Plan: Check echocardiogram. Check Lexiscan stress Myoview. (3) PAC (premature atrial contraction): Status: Chronic Plan: Monitor. Patient asymptomatic. (4) History of CVA (cerebrovascular accident): Status: Chronic Plan: Status post right carotid endarterectomy. Continue aspirin. Rosuvastatin. (5) HTN (hypertension): Status: Chronic Plan: On diuretic. Blood pressure elevated in the office today but according to the patient, his blood pressure at home is well-controlled with systolic in the 110sand diastolic in the 70s. Counseled to call us with blood pressure log in 4 to 5 days time. (6) Dyslipidemia: Status: Chronic Plan: Rosuvastatin. Orders: Orders 12 Lead EKG performed by [facility] Today I49.9 - Cardiac arrhythmia, unspecified, I63.239 - Cerebral infarction due to unspecified occlusion or stenosis of unspecified carotid artery Plan Details Additional Comments: Check complete metabolic panel, TSH and magnesium. Follow Up: 3 Months Coding Level of Care Code Off vis,new,level 4 Diagnoses Bilateral lower extremity edema R60.0 Dyspnea on exertion R06.09 PAC (premature atrial contraction) I49.1 History of CVA (cerebrovascular accident) Z86.73 HTN (hypertension) I10 Dyslipidemia E78.5 Coding Level of Care Code Off vis,new,level 4 Diagnoses Bilateral lower extremity edema R60.0 Dyspnea on exertion R06.09 PAC (premature atrial contraction) I49.1 History of CVA (cerebrovascular accident) Z86.73 HTN (hypertension) I10 Dyslipidemia E78.5 Clinical Quality Measures Falls Risk Screening/Assistive Devices Have you fallen in the past year?: Yes Cardiac Ejection fraction %: 65 07/06/25 1040 <Electronically signed by Theodore Azevedo MD> Date _ Theodore Azevedo MD Cosigner Signature: Date (if applicable) CC: ALLIE Hawkins ~ [employer] Work Phone: Reason for referral (narrative) Note Date & Type Note Facility Reason for referral (narrative) No reason for referral information available [facility] Work Phone: Summary Purpose Family History No Family History Records Found Relationship Condition Age at Onset Recorded Date/T breana Not Specified Diabetes mellitus Unknown Cardiac disease Unknown Advance Directives No Advanced Directives Records FoundNo Advanced Directives Records FoundNo Advanced Directives Records FoundNo Advanced Directives Records FoundNo Advanced Directives Records Found Chief Complaint and Reason for Visit Chief Complaint Admit Date STATUS POST RIGHT CEA February 16, 2025 8:5 0am Chief Complaint Admit Date SOB, DIZZY, LEG SWELLING, CVA July 062024 9:43am E-ORDER July 14, 2025 1 0:28am Reason for Visit Admit Date Bilateral lower extremity edema July 06, 2025 9:43am Dyslipidemia July 06, 2025 9 :43am Dyspnea on exertion July 06, 2025 9 :43am History of CVA (cerebrovascular accident ) July 06, 2025 9:43am HTN (hypertension) July 06, 2025 9 :43am PAC (premature atrial contraction) Octob er 2024 9:43am Additional Source Comments (unrecognized sect ion and content) No Status Records FoundNo Status Records FoundNo Status Records FoundNo Status Records FoundNo Status Records Found INFORMATION SOURCE (unrecogn ized section and content) DATE CREATED AUTHOR 03/18/2018 [facility] DATE CREATED AUTHOR AUTHOR'S ORGANIZ ATION 10/25/2018 [facility] DATE CREATED AUTHOR AUTHOR'S ORGANIZ ATION 05/04/2025 [facility] DATE CREATED AUTHOR AUTHOR'S ORGANIZ ATION 07/28/2025 [facility] DATE CREATED AUTHOR AUTHOR'S ORGANIZ ATION 07/30/2025 [facility] Care Teams (unrecognized sec tion and content) Team Status: Active Member Role Status Dates ALLIE Hawkins Primary Care Provider Active Team Status: Inactive Member Role Status Dates ALLIE Hawkins Primary Care Provider Active Start: February 16, 2025 End: February 16, 2025 ALLIE Segura Attending Provider Active Star t: February 16, 2025 End: February 16, 2025 ALLIE Segura Referring Provider Active Star t: February 16, 2025 End: February 16, 2025 Team Status: Active Member Role Status Dates ALLIE Hawkins Primary Care Provider Active Start: February 16, 2025 Dr. Bry Strange MD Attending Provider Active S tart: February 16, 2025 Team Status: Active Member Role/Relationship Status Dates ALLIE Hawkins Primary care physician Active Team Status: Inactive Member Role/Relationship Status Dates ALLIE Hawkins Primary care physician Active Start: July 06, 2025 End: July 06, 2025 ALLIE Hawkins Referring Provider Active Start: July 06, 2025 End: July 06, 2025 Dr. Theodore Azevedo MD Attending physician Active Start: July 06, 2025 End: July 06, 2025 Team Status: Active Member Role/Relationship Status Dates ALLIE Hawkins Primary care physician Active Start: July 14, 2025 Dr. Theodore Azevedo MD Attending physician Active Start: July 14, 2025 Dr. Theodore Azevedo MD Referring Provider Active Start: July 14, 2025 Goals (unrecognized section and content) Goals may be documented in a n alternate sectionGoals may be documented in an alternate section FOR RECORDS PERTAINING TO PATIENTS WHO ARE [...] BE BASED ON THE PRIMARY CLINICAL RECORDS. [facility] [employer] [facility]. provides no warranty or guarantee of the accuracy or completeness of information in this document.
--- NOTE | 2025-08-01 07:00 | ECHOCS_ITS ---
Reason For Study Reason For Study: DYSPNEA Procedure This was a 2D Doppler, Color Flow transthoracic echocardiogram. The study was technically difficult. Contrast injection was performed. Exam performed in department. Left Ventricle Normal size and thickness. The left ventricular ejection fraction is 60 %. Normal diastology for age. Right Ventricle Normal right ventricle. Atria The left and right atria are normal. Mitral Valve Mild focal mitral valve calcification of the anterior leaflet. Trivial mitral valve insufficiency. Tricuspid Valve Trivial tricuspid valve insufficiency. Normal pulmonary artery pressure. Aortic Valve Aortic sclerosis, no stenosis. Pulmonic Valve The pulmonic valve is not well visualized. Trivial pulmonic valve insufficiency. Great Vessels Normal sized aortic root. Pericardium/Pleural Trivial pericardial effusion. Medication 22 gauge I.V. with prn adaptor inserted into left arm. Diluted definity 2.5ml given slow IV push to enhance endocardial definition. MMode/2D Measurements & Calculations LVIDd: 4.0 cm IVSd: 0.90 cm LVOT diam: 2.0 cm LVIDs: 2.7 cm LVPWd: 0.91 cm RVDd: 3.2 cm FS: 31.2 % LVOT area: 3.0 cm2 Ao root diam: 3.4 cm asc Aorta Diam: 3.5 cm LAV(MOD- bp): 26.6 ml LAV(MOD- bp) Indexed: 11.1 ml/m2 LAV(MOD- sp2): 29.4 ml LAV(MOD- sp4): 23.8 ml SV(MOD- sp4): 54.3 ml LVAd ap4: 30.5 cm2 LVAd ap2: 31.9 cm2 LVLd ap4: 7.5 cm LVLd ap2: 7.8 cm SI(MOD- sp4): 22.7 ml/m2 EDV(MOD-sp4): 99.5 ml EDV(MOD-sp2): 106.9 ml EDV(sp4-el): 104.5 ml EDV(sp2-el): 111.2 ml LVAs ap4: 19.7 cm2 LVAs ap2: 20.4 cm2 LVLs ap4: 7.0 cm LVLs ap2: 7.4 cm ESV(MOD-sp4): 45.2 ml ESV(MOD-sp2): 49.0 ml ESV(sp4-el): 47.2 ml ESV(sp2-el): 48.1 ml EF(MOD-sp4): 54.6 % EF(MOD-sp2): 54.2 % EF(sp4-el): 54.9 % SV(MOD-sp2): 57.9 ml SV(sp4-el): 57.3 ml Ao sinus diam: 3.4 cm SI(MOD-sp2): 24.2 ml/m2 Ao ST Junction: 2.4 cm LA dimension(2D): 3.2 cm LA A4 area: 11.9 cm2 RA A4 area: 11.7 cm2 TAPSE: 1.7 cm Time Measurements MV dec time: 0.23 sec Doppler Measurements & Calculations MV E max manjeet: 67.4 cm/sec Lat Peak E' Manjeet: 8.5 cm/sec Med Peak E' Manjeet: 7.6 cm/sec MV A max manjeet: 93.0 cm/sec E/E' lat: 8.0 E/E' med: 8.9 MV E/A: 0.72 Ao V2 max: 117.2 cm/sec LV V1 max: 100.8 cm/sec MV dec slope: 295.4 cm/sec2 Ao max P.5 mmHg LV V1 max P.1 mmHg Ao V2 mean: 88.2 cm/sec LV V1 mean P.2 mmHg Ao mean P.4 mmHg LV V1 mean: 71.5 cm/sec Ao V2 VTI: 29.4 cm LV V1 VTI: 21.0 cm AV (velocity ratio): 0.71 JOSE ANTONIO(I,D): 2.2 cm2 JOSE ANTONIO(V,D): 2.6 cm2 SV(LVOT): 64.0 ml PA V2 max: 99.1 cm/sec PI end-d manjeet: 91.4 cm/sec TR max manjeet: 226.2 cm/sec TR max P.5 mmHg ECHO/Echo Complete W/ Contrast Interpretation Summary The left ventricular ejection fraction is 60 %. Mild focal mitral valve calcification of the anterior leaflet. Aortic sclerosis, no stenosis. Trivial pericardial effusion. Ordering Physician: Theodore Azevedo Referring Physician: Theodore Azevedo MD Performed By: Luba Lloyd SANDEEP
--- NOTE | 2025-08-02 12:32 | STRESSREP ---
Stress Test Report Date: 08/01/2025 Procedure: Pharmacologic stress nuclear imaging study Indications: Dyspnea Consent: Per the patient Procedure: The patient underwent pharmacologic (Regadenoson 0.4mg ) evaluation with a peak heart rate of 98 beats per minute (64%predicted maximal heart rate) and a peak blood pressure of 174/96 mmHg. The baseline ECG demonstrated sinus rhythm with PACs. The peak pharmacologic ECG did not show any ischemic changes. PACs noted pretesting postinfusion. There was no complaint of chest discomfort during pharmacologic infusion or recovery. The patient was injected with 14.7 millicuries of technetium 99m Cardiolite and subsequently rest SPECT Cardiolite nuclear imaging was obtained in the horizontal long, vertical long, and short axis views. The patient underwent pharmacologic (Regadenoson) evaluation. The patient was injected with 44.6 millicuries of technetium 99m Cardiolite and subsequently stress SPECT Cardiolite nuclear imaging was obtained in the horizontal long, vertical long, and short axis views. A gated Cardiolite study at peak stress was obtained. The examination was stopped secondary to completion of protocol. Rest and stress SPECT Cardiolite nuclear imaging status post realignment, normalization, and attenuation correction demonstrate mildly reduced perfusion of the basal lateral wall which remains unchanged. With normal wall motion, consider attenuation artifact. There is end systolic thickening and brightening. The gated Cardiolite study demonstrates myocardial thickening and inward wall motion. The reported LVEF is 58%. Impression: 1. Pharmacologic (Regadenoson) evaluation 2. Peak pharmacologic ECG with no ischemic changes. 3. No significant cardiac dysrhythmias noted. 5. Rest and stress SPECT Cardiolite nuclear imaging demonstrate relative uniform tracer uptake and myocardial perfusion appearing within normal limits. 6. The gated Cardiolite study reports an LVEF of 58%. This note was generated with [employer] software. It may contain incorrect words, spelling, and punctuation that were not noted in checking the note before signing.
== END | disposition home or self-care (01) ==
PROVIDERS: PCP Physician Assistant; Referring Provider Internal Medicine Cardiovascular Disease; Visit Provider Internal Medicine Cardiovascular Disease
DX: R06.09 Other forms of dyspnea (principal)
CPT/HCPCS: 78452; 93017; 93306; A9500; Q9957; A4216; C8929; J2785

== ENCOUNTER → 2025-08-22 | Outpatient (CLI) | payer OTHER, SELFPAY ==
--- NOTE | 2025-08-22 09:53 | CDU_ITS ---
Reason For Study Reason For Study: HX Rt ICA CEA Rt. Velocities/BP Lt. Velocities/BP Prox CCA 69.9/18.2 cm/sec. Prox CCA 60.9/19.2 cm/sec. Mid CCA 68.6/24.2 cm/sec. Mid CCA 73.2/25.3 cm/sec. Dist CCA 65.8/22.3 cm/sec. Dist CCA 70.7/20.4 cm/sec. Prox ICA 71.0/30.3 cm/sec. Prox ICA 123.5/41.3 cm/sec. Mid ICA 76.5/28.1 cm/sec. Mid ICA 77.6/30.3 cm/sec. Dist ICA 60.6/23.1 cm/sec. Dist ICA 60.2/23.2 cm/sec. Rt. ICA/CCA = 1.1. Lt. ICA/CCA = 1.7. Prox ECA 208.8/27.8 cm/sec. Prox ECA 163.8/38.6 cm/sec. Rt. Vert. 29.6/9.0 cm/sec. Lt. Vert. 33.7/12.7 cm/sec. Right Extracranial There is homogeneous, smooth atherosclerotic plaque noted in the right common carotid artery. There is homogeneous, smooth atherosclerotic plaque noted in the right internal carotid artery. HX Rt ICA CEA. There is intimal thickening but no significant atherosclerotic plaque noted in the right external carotid artery. Antegrade flow is noted in the right vertebral artery. Left Extracranial There is homogeneous, smooth atherosclerotic plaque noted in the left common carotid artery. There is heterogeneous, irregular atherosclerotic plaque noted in the left internal carotid artery. There is heterogeneous, irregular atherosclerotic plaque noted in the left external carotid artery. Antegrade flow is noted in the left vertebral artery. There is heterogeneous, irregular atherosclerotic plaque noted in the left bulb. Procedure Carotid Duplex 12030. This is a Carotid Duplex examination using B-mode, color flow and specral Doppler. The exam was diagnostic. Exam performed in department. VL/Carotid Duplex Ultrasound Interpretation Summary Mild (<50%) stenosis right extracranial internal carotid. Mild (<50%) stenosis left extracranial internal carotid. Patent and antegrade vertebrals bilaterally. Ordering Physician: Sona Mitchell Referring Physician: Anthony Shine Performed By: Caio Redd RVT and Student
== END | disposition home or self-care (01) ==
LOC: CVS 09:49
PROVIDERS: PCP Physician Assistant; Referring Provider Physician Assistant; Visit Provider Physician Assistant
DX: I63.239 Cerebral infarction due to unspecified occlusion or stenosis of unspecified carotid artery (principal); Z48.812 Encounter for surgical aftercare following surgery on the circulatory system
CPT/HCPCS: 93880